=== PATIENT | female | born 1950 | race Caucasian/White ===

== ENCOUNTER 2019-03-16 06:00 | Inpatient (IN) ==
[2019-03-16] MEDS ORDERED: GLUCAGON 1 MG VIAL IM PRN ×2 (06:31)
[2019-03-16] MEDS ORDERED: DEXTROSE 50% 25 GM/50 ML VIAL IV PRN ×2 (06:31)
[2019-03-16] MEDS: CHLORHEXIDINE 4% SOLN 118 ML BOTTLE TOP SCH ×3 (09:00→21:19)
[2019-03-16] MEDS ORDERED: ZALEPLON 5 MG CAPSULE PO PRN (09:30)
[2019-03-16 10:31] LABS: Basophils % 0.3 % (0.0-0.8); Eosinophils # 0.1 10*3/uL (0.0-0.87); Eosinophils % 1.4 % (0.00-10.9); Hematocrit 35.8 VOL% (35.7-47.0); Hemoglobin 10.5 GM/DL (12.0-16.0); Immature Granulocytes % 0.3 %; Immature Granulocytes Absolute 0.02 #; Lymphocytes # 1.9 10*3/uL (1.4-4.0); Lymphocytes % 29.3 % (21.3-54.2); Mean Corpuscular HGB Conc 29.3 GM/DL (32-36); Mean Corpuscular Volume 81.2 FL (87-102); Mean Platelet Volume 9.5 FL (9.6-12.0); Monocytes % 7.9 % (1.7-12.7); Neutrophils % 60.8 % (38.7-73.9); Platelet Count 250 T/CUMM (130-400); Red Blood Count 4.41 MC/CUMM (3.8-5.5); Red Cell Distribution Width 18.5 % (9.3-17.3); White Blood Count 6.5 T/CUMM (4-12)
[2019-03-16 10:33] LABS: Alanine Aminotransferase 16 U/L (13-56); Albumin 3.4 G/DL (3.4-5.0); Alkaline Phosphatase 134 U/L (45-117); Aspartate Amino Transferase 16 U/L (0-37); Bilirubin,Total < 0.39 MG/DL (0.2-1.0); Blood Urea Nitrogen 11 MG/DL (7-18); Calcium 9.1 MG/DL (8.5-10.1); Estimated Glom Filtration Rate 66 ML/MIN; Glucose 128 MG/DL (74-106); Osmolality,Calculated 279.4 MOS/KG (273-304); Total Protein 7.5 G/DL (6.4-8.3)
[2019-03-16] MEDS: VENLAFAXINE XR 37.5 MG CAPSULE PO SCH (12:22)
[2019-03-16] MEDS: LOSARTAN 50 MG TABLET PO SCH (12:22)
[2019-03-16] MEDS: amLODIPine 5 MG TABLET PO SCH (12:22)
[2019-03-16] MEDS: ASPIRIN CHEW 81 MG TABLET PO SCH (12:22)
[2019-03-16] MEDS: PROPRANOLOL 40 MG TABLET PO SCH ×2 (12:22→21:18)
[2019-03-16] MEDS: GABAPENTIN 300 MG CAPSULE PO SCH (12:22)
[2019-03-16] MEDS: CHLORHEXIDINE 0.12% ORAL RINSE 60 ML BOTTLE SWISH/SPIT SCH ×2 (12:24→21:18)
[2019-03-16] MEDS: SODIUM CHLORIDE 0.9% 1,000 ML IV SCH (12:24)
[2019-03-17] MEDS ORDERED: ONDANSETRON 4 MG/2 ML VIAL IV ONE (03:28)
[2019-03-17] MEDS ORDERED: VANCOMYCIN 500 MG VIAL ONE (04:25)
[2019-03-17] MEDS ORDERED: PAPAVERINE 60 MG/2 ML VIAL ONE (04:25)
[2019-03-17] MEDS ORDERED: VANCOMYCIN 1,000 MG VIAL ONE (04:25)
[2019-03-17] MEDS ORDERED: FAMOTIDINE 20 MG TABLET PO ONE (06:00)
[2019-03-17] MEDS ORDERED: DIAZEPAM 5 MG TABLET PO ONE (06:00)
[2019-03-17] MEDS ORDERED: SUFentanil 250 MCG/5 ML AMP ONE (06:00)
[2019-03-17] MEDS ORDERED: MIDAZOLAM 10 MG/2 ML VIAL ONE (06:01)
[2019-03-17] MEDS ORDERED: LEVOTHYROXINE 100 MCG TABLET PO SCH (06:30)
[2019-03-17] MEDS ORDERED: CEFUROXIME 1,500 MG VIAL ONE (06:45)
[2019-03-17] MEDS ORDERED: CEFUROXIME INJ 1,500 MG in SYRINGE 1 EACH IV ONE (07:00)
[2019-03-17] MEDS: SODIUM CHLORIDE 0.9% 1,000 ML IV SCH (07:00)
[2019-03-17 07:36] LABS: ABG Base Excess 1.4 MMOL/L (-2.5-2.5); ABG HCO3 25.7 MMOL/L (20-26); ABG PCO2 40.4 MM HG (35-48); ABG PH 7.416 (7.35-7.45); Glucose Heart Surgery 102 MG/DL (74-106); Hematocrit Heart Surgery 27.6 PERCENT (37-47); Hemoglobin Heart Surgery 8.9 G/DL (12.0-16.0); Ionized Calcium Arterial 1.08 MMOL/L (1.21-1.46); PCO2 Patient Temp Arterial 40.4 MMHG; PH Patient Temp Arterial 7.416; Patient Temperature 37 CELCIUS; Potassium Heart/CVR 3.8 MMOL/L (3.5-5.1); Sodium Heart/CVR 136 MMOL/L (135-145)
[2019-03-17 08:23] LABS: Apearance,Urine CLEAR (Clear); Bacteria,Urine Occasional /HPF (Few); Bilirubin,Urine Negative (Negative); Blood, Urine Negative (Negative); Glucose,Urine (UA) Negative (Negative); Ketones,Urine Negative (Negative); Mucus,Urine Occasional /LPF (Occasional); Nitrite,Urine Positive (Negative); Protein,Urine Negative; RBC,Urine <1 /HPF (0-4); Squamous Epithelial Cell,Urine Occasional /HPF (0-10); Urine Color Yellow (Yellow); Urine Specific Gravity 1.014 (1.001-1.035); Urine Urobilinogen < 2.0 EU/DL (0.2-1.0); WBC,Urine 4 /HPF (0-6)
[2019-03-17 08:41] LABS: Hemoglobin Heart Surgery 6.9 G/DL (12.0-16.0); PCO2 Patient Temp Venous 29.7 MM HG; PH Patient Temp Venous 7.551; PO2 Patient Temp Venous 38.5 MM HG; Potassium Heart/CVR 4.4 MMOL/L (3.5-5.1); VBG Base Excess 2.9 MEQ/L (0-4); VBG HCO3 25.9 MEQ/L (24-28); VBG Oxygen Saturation 81.6 %; VBG PCO2 32.4 MMHG (41-51); VBG PH 7.52; VBG PO2 44.3 MMHG (17-40)
[2019-03-17] MEDS: CHLORHEXIDINE 0.12% ORAL RINSE 60 ML BOTTLE SWISH/SPIT SCH ×2 (09:00→20:45)
[2019-03-17] MEDS: GABAPENTIN 300 MG CAPSULE PO SCH (09:00)
[2019-03-17] MEDS: amLODIPine 5 MG TABLET PO SCH (09:00)
[2019-03-17] MEDS: PROPRANOLOL 40 MG TABLET PO SCH (09:00)
[2019-03-17] MEDS: LOSARTAN 50 MG TABLET PO SCH (09:00)
[2019-03-17] MEDS: ASPIRIN CHEW 81 MG TABLET PO SCH (09:00)
[2019-03-17] MEDS: VENLAFAXINE XR 37.5 MG CAPSULE PO SCH (09:00)
[2019-03-17 09:11] LABS: Hematocrit Heart Surgery 23.8 PERCENT (37-47); Hemoglobin Heart Surgery 7.6 G/DL (12.0-16.0); PCO2 Patient Temp Venous 34.1 MM HG; PH Patient Temp Venous 7.47; PO2 Patient Temp Venous 36.8 MM HG; VBG Base Excess 1.6 MEQ/L (0-4); VBG HCO3 25.6 MEQ/L (24-28); VBG Oxygen Saturation 82.9 %; VBG PCO2 39.5 MMHG (41-51); VBG PH 7.426; VBG PO2 45.2 MMHG (17-40)
[2019-03-17] MEDS ORDERED: MANNITOL 100 GM/500 ML BAG IV ONE (09:58)
[2019-03-17] MEDS ORDERED: LIDOCAINE 2% 5 ML VIAL ONE ×2 (09:58→11:04)
[2019-03-17] MEDS ORDERED: FUROSEMIDE 20 MG/2 ML VIAL ONE (09:59)
[2019-03-17] MEDS ORDERED: DEXTROSE 5% KCL 20 MEQ 20 MEQ/1,000 ML BAG IV ONE (09:59)
[2019-03-17] MEDS ORDERED: ALBUMIN 25% 25 GM/100 ML VIAL IV ONE (09:59)
[2019-03-17] MEDS ORDERED: MAGNESIUM SULFATE 5 GM/10 ML VIAL IV ONE (09:59)
[2019-03-17] MEDS ORDERED: methylPREDNISolone SOD SUC 1,000 MG/8 ML VIAL ONE (09:59)
[2019-03-17] MEDS ORDERED: PROTAMINE SULFATE 250 MG/25 ML VIAL IV ONE (09:59)
[2019-03-17] MEDS ORDERED: HEPARIN 10,000 UNIT/10 ML VIAL ONE (09:59)
[2019-03-17] MEDS ORDERED: SODIUM BICARBONATE 50 MEQ/50 ML VIAL IV ONE ×2 (09:59→10:27)
[2019-03-17] MEDS ORDERED: PROTAMINE SULFATE 50 MG/5 ML VIAL IV ONE (10:00)
[2019-03-17 10:04] LABS: ABG Base Excess -0.4 MMOL/L (-2.5-2.5); ABG HCO3 23.4 MMOL/L (20-26); ABG PCO2 34.5 MM HG (35-48); ABG PH 7.449 (7.35-7.45); ABG PO2 452.6 MM HG (80-95); ABG TCO2 24.4 MMOL/L (23-27); Glucose Heart Surgery 229 MG/DL (74-106); PCO2 Patient Temp Arterial 34.5 MMHG; PH Patient Temp Arterial 7.449; PO2 Patient Temp Arterial 452.6 MM HG; Patient Temperature 37 CELCIUS; Potassium Heart/CVR 4.1 MMOL/L (3.5-5.1); Sodium Heart/CVR 133 MMOL/L (135-145)
[2019-03-17] MEDS ORDERED: CALCIUM CHLORIDE 1,000 MG/10 ML SYRINGE IV ONE (10:27)
[2019-03-17] MEDS ORDERED: NITROPRUSSIDE 50 MG/2 ML VIAL ONE (10:28)
[2019-03-17] MEDS ORDERED: PHENYLEPHRINE DRIP 40 MG/250 ML PREMIX IV ONE (10:28)
[2019-03-17] MEDS ORDERED: POTASSIUM CHLORIDE RIDER 100 ML IV ONE ×2 (10:29→11:30)
[2019-03-17] MEDS ORDERED: INSULIN REGULAR DRIP 100 ML IV SCH (11:04)
[2019-03-17] MEDS ORDERED: SEVOFLURANE 1 UNIT/15 MINUTE INH ONE (11:04)
[2019-03-17] MEDS ORDERED: CALCIUM CHLORIDE 1,000 MG/10 ML SYRINGE IV PRN (11:04)
[2019-03-17] MEDS ORDERED: HEPARIN/NACL 0.9% 2 UNITS/ML 500 ML IV ONE (11:04)
[2019-03-17] MEDS ORDERED: MAGNESIUM SULF RIDER 4 GM in PREMIX 1 EACH IV PRN (11:04)
[2019-03-17] MEDS ORDERED: VECURONIUM 10 MG VIAL IV PRN ×2 (11:04)
[2019-03-17] MEDS ORDERED: PHENYLEPHRINE DRIP 20 MG/250 ML PREMIX IV ONE (11:04)
[2019-03-17] MEDS ORDERED: NITROPRUSSIDE 100 MG in DEXTROSE 5% 250 ML IV PRN (11:04)
[2019-03-17] MEDS ORDERED: ACETAMINOPHEN 650 MG SUPP RECTAL PRN (11:04)
[2019-03-17] MEDS ORDERED: PHENYLEPHRINE DRIP 40 MG/250 ML PREMIX IV PRN (11:04)
[2019-03-17] MEDS ORDERED: MORPHINE 4 MG/1 ML VIAL IV PRN (11:04)
[2019-03-17] MEDS ORDERED: ePHEDrine 50 MG/ML AMP ONE (11:04)
[2019-03-17] MEDS ORDERED: MORPHINE 10 MG/1 ML VIAL IV PRN (11:04)
[2019-03-17] MEDS ORDERED: SODIUM CHLORIDE 0.45% 1,000 ML IV SCH ×2 (11:04)
[2019-03-17] MEDS ORDERED: POTASSIUM CHLORIDE RIDER 10 MEQ in PREMIX 1 EACH IV PRN (11:04)
[2019-03-17] MEDS ORDERED: MIDAZOLAM 2 MG/2 ML VIAL IV PRN (11:04)
[2019-03-17] MEDS ORDERED: MAGNESIUM SULF RIDER 2 GM in PREMIX 1 EACH IV PRN (11:04)
[2019-03-17] MEDS ORDERED: MIDAZOLAM 10 MG/2 ML VIAL IV PRN (11:04)
[2019-03-17] MEDS ORDERED: MINERAL OIL/PETROLATUM OPH OINT 3.5 GM TUBE ONE (11:04)
[2019-03-17] MEDS ORDERED: CALCIUM CHLORIDE 1,000 MG/10 ML VIAL IV ONE (11:04)
[2019-03-17] MEDS ORDERED: DEXTROSE 10% 250 ML BAG IV PRN ×2 (11:04)
[2019-03-17] MEDS ORDERED: INSULIN REGULAR 100 UNIT/ML IV ONE (11:04)
[2019-03-17] MEDS ORDERED: ETOMIDATE 40 MG/20 ML VIAL IV ONE (11:05)
[2019-03-17] MEDS ORDERED: ONDANSETRON 4 MG/2 ML VIAL ONE (11:05)
[2019-03-17] MEDS ORDERED: ESMOLOL 100 MG/10 ML VIAL IV ONE (11:05)
[2019-03-17] MEDS ORDERED: ROCURONIUM 100 MG/10 ML VIAL IV ONE (11:05)
[2019-03-17] MEDS ORDERED: AMINOCAPROIC ACID 5,000 MG/20 ML VIAL ONE (11:05)
[2019-03-17] MEDS ORDERED: NITROGLYCERIN DRIP 50 MG/250 ML BOTTLE IV ONE (11:05)
[2019-03-17] MEDS ORDERED: DEXAMETHASONE 4 MG/1 ML VIAL ONE (11:05)
[2019-03-17] MEDS ORDERED: SODIUM CHLORIDE 0.9% 100 ML IV ONE (11:06)
[2019-03-17] MEDS ORDERED: SODIUM CHLORIDE 0.9% 250 ML IV ONE (11:06)
[2019-03-17 11:17] LABS: ABG Base Excess -0.7 MMOL/L (-2.5-2.5); ABG HCO3 23.8 MMOL/L (20-26); ABG Oxygen Saturation 99.7 % (95-100); ABG PCO2 38.3 MM HG (35-48); ABG PH 7.401 (7.35-7.45); ABG TCO2 21.8 MMOL/L (23-27); Glucose Heart Surgery 196 MG/DL (74-106); Hemoglobin Heart Surgery 9.4 G/DL (12.0-16.0); Potassium Heart/CVR 3.4 MMOL/L (3.5-5.1)
[2019-03-17 11:20] LABS: Basophils % 0.2 % (0.0-0.8); Eosinophils % 0.4 % (0.00-10.9); Hematocrit 30.6 VOL% (35.7-47.0); Hemoglobin 9.2 GM/DL (12.0-16.0); Immature Granulocytes % 1.1 %; Immature Granulocytes Absolute 0.11 #; Lymphocytes # 0.7 10*3/uL (1.4-4.0); Lymphocytes % 7.1 % (21.3-54.2); Mean Corpuscular HGB Conc 30.1 GM/DL (32-36); Mean Platelet Volume 9.7 FL (9.6-12.0); Monocytes % 3.4 % (1.7-12.7); Neutrophils % 87.8 % (38.7-73.9); Platelet Count 184 T/CUMM (130-400); Red Blood Count 3.78 MC/CUMM (3.8-5.5); Red Cell Distribution Width 17.9 % (9.3-17.3); White Blood Count 10.1 T/CUMM (4-12)
[2019-03-17] MEDS: NITROGLYCERIN DRIP 50 MG/250 ML BOTTLE IV PRN (11:20)
[2019-03-17] MEDS: POTASSIUM CHLORIDE RIDER 20 MEQ in PREMIX 1 EACH IV PRN ×3 (11:25→13:18)
[2019-03-17 11:30] LABS: PT Patient Result 11.2 SECS (9.6-12.2); Partial Thromboplastin Time 26.5 SECS (20.8-36.0)
[2019-03-17 11:53] LABS: Albumin 2.9 G/DL (3.4-5.0); Bilirubin,Total 1.4 MG/DL (0.2-1.0); Calcium 8.5 MG/DL (8.5-10.1); Osmolality,Calculated 283.4 MOS/KG (273-304); Total Protein 5.6 G/DL (6.4-8.3)
[2019-03-17] MEDS: LACTATED RINGERS 250 ML IV PRN ×4 (12:05→17:35)
[2019-03-17] MEDS: KETOROLAC 30 MG/1 ML VIAL IV SCH ×3 (12:30→23:14)
[2019-03-17 13:06] LABS: ABG Base Excess -0.6 MMOL/L (-2.5-2.5); ABG HCO3 23.9 MMOL/L (20-26); ABG Oxygen Saturation 98.6 % (95-100); ABG PCO2 40.7 MM HG (35-48); ABG PH 7.384 (7.35-7.45); ABG TCO2 22.2 MMOL/L (23-27); Glucose Heart Surgery 166 MG/DL (74-106); Hematocrit Heart Surgery 30.1 PERCENT (37-47); Hemoglobin Heart Surgery 9.7 G/DL (12.0-16.0); Potassium Heart/CVR 4.3 MMOL/L (3.5-5.1)
[2019-03-17 13:55] LABS: CKMB % 6.5 %
[2019-03-17 13:59] LABS: Troponin I 2.98 NG/ML (0.00-0.045)
[2019-03-17] MEDS: ALBUMIN 5% 12.5 GM in PREMIX 1 EACH IV PRN ×2 (14:50→15:05)
[2019-03-17 16:30] LABS: ABG Base Excess -0.5 MMOL/L (-2.5-2.5); ABG PCO2 43.3 MM HG (35-48); ABG PH 7.367 (7.35-7.45); Glucose Heart Surgery 155 MG/DL (74-106); Hematocrit Heart Surgery 26.9 PERCENT (37-47); Hemoglobin Heart Surgery 8.7 G/DL (12.0-16.0); Potassium Heart/CVR 4.5 MMOL/L (3.5-5.1)
[2019-03-17] MEDS: INSULIN REGULAR 100 UNIT/ML IV PRN (18:05)
[2019-03-17] MEDS: CEFUROXIME INJ 1,500 MG in SYRINGE 1 EACH IV SCH (18:25)
[2019-03-17] MEDS: CEFUROXIME INJ 1,500 MG in SYRINGE 1 EACH IV ONE ×2 (18:30→19:33)
[2019-03-17] MEDS ORDERED: FUROSEMIDE 40 MG/4 ML VIAL IV PRN (19:02)
[2019-03-17 19:10] LABS: ABG HCO3 23.6 MMOL/L (20-26); ABG PCO2 43.4 MM HG (35-48); ABG PH 7.359 (7.35-7.45); ABG TCO2 22.4 MMOL/L (23-27)
[2019-03-17 19:11] LABS: ABG Oxygen Saturation 98.7 % (95-100); Glucose Heart Surgery 153 MG/DL (74-106); Hematocrit Heart Surgery 29.8 PERCENT (37-47); Hemoglobin Heart Surgery 9.6 G/DL (12.0-16.0); Potassium Heart/CVR 4.2 MMOL/L (3.5-5.1)
[2019-03-17 19:46] LABS: CKMB % 6.7 %
[2019-03-17 19:48] LABS: Troponin I 5.72 NG/ML (0.00-0.045)
[2019-03-17] MEDS ORDERED: PROPRANOLOL 40 MG TABLET PO ONE (19:53)
[2019-03-18] MEDS: NITROGLYCERIN DRIP 50 MG/250 ML BOTTLE IV PRN (02:50)
[2019-03-18 03:37] LABS: ABG Base Excess 0.9 MMOL/L (-2.5-2.5); ABG HCO3 25.2 MMOL/L (20-26); ABG Oxygen Saturation 97.9 % (95-100); ABG PH 7.369 (7.35-7.45); Glucose Heart Surgery 136 MG/DL (74-106); Hematocrit Heart Surgery 32.9 PERCENT (37-47); Hemoglobin Heart Surgery 10.7 G/DL (12.0-16.0); Potassium Heart/CVR 4.2 MMOL/L (3.5-5.1)
[2019-03-18 03:38] LABS: Basophils % 0.1 % (0.0-0.8); Hematocrit 33.3 VOL% (35.7-47.0); Hemoglobin 10.4 GM/DL (12.0-16.0); Immature Granulocytes % 0.6 %; Lymphocytes # 0.8 10*3/uL (1.4-4.0); Lymphocytes % 4.9 % (21.3-54.2); Mean Corpuscular HGB Conc 31.2 GM/DL (32-36); Mean Corpuscular Volume 81.4 FL (87-102); Mean Platelet Volume 9.9 FL (9.6-12.0); Monocytes % 4.8 % (1.7-12.7); Neutrophils % 89.6 % (38.7-73.9); Platelet Count 199 T/CUMM (130-400); Red Blood Count 4.09 MC/CUMM (3.8-5.5); Red Cell Distribution Width 17.6 % (9.3-17.3); White Blood Count 16.2 T/CUMM (4-12)
[2019-03-18 04:00] LABS: Albumin 3.4 G/DL (3.4-5.0); Bilirubin,Direct 0.21 MG/DL (0.0-0.20); Bilirubin,Total 0.6 MG/DL (0.2-1.0); Calcium 8.3 MG/DL (8.5-10.1); Total Protein 5.9 G/DL (6.4-8.3)
[2019-03-18 04:02] LABS: CKMB % 7.9 %
[2019-03-18 04:04] LABS: Band Neutrophils 1 % (0-10); Hypochromasia 1+; Lymphocytes 5 % (20-55); Ovalocytes Slight; Platelet Estimate Adequate; Segmented Neutrophils 91 % (50-85); Total Cells Counted 100
[2019-03-18] MEDS: ONDANSETRON 4 MG/2 ML VIAL IV PRN ×2 (04:06→10:27)
[2019-03-18 04:08] LABS: Troponin I 10.8 NG/ML (0.00-0.045)
[2019-03-18 04:59] LABS: ABG Base Excess 0.2 MMOL/L (-2.5-2.5); ABG HCO3 24.6 MMOL/L (20-26); ABG PCO2 43.9 MM HG (35-48); ABG PH 7.374 (7.35-7.45); ABG PO2 90.1 MM HG (80-95); ABG TCO2 23.2 MMOL/L (23-27); Glucose Heart Surgery 151 MG/DL (74-106); Hematocrit Heart Surgery 32.6 PERCENT (37-47); Hemoglobin Heart Surgery 10.5 G/DL (12.0-16.0)
[2019-03-18] MEDS: KETOROLAC 30 MG/1 ML VIAL IV SCH ×3 (05:01→16:41)
[2019-03-18] MEDS: POTASSIUM CHLORIDE RIDER 20 MEQ in PREMIX 1 EACH IV PRN ×2 (05:04→07:57)
[2019-03-18] MEDS ORDERED: FUROSEMIDE 40 MG/4 ML VIAL IV ONE (05:56)
[2019-03-18] MEDS: CEFUROXIME INJ 1,500 MG in SYRINGE 1 EACH IV SCH (06:30)
[2019-03-18 06:38] LABS: ABG Base Excess 0.6 MMOL/L (-2.5-2.5); ABG HCO3 24.9 MMOL/L (20-26); ABG Oxygen Saturation 96.4 % (95-100); ABG PCO2 44.6 MM HG (35-48); ABG PH 7.374 (7.35-7.45); ABG PO2 84.9 MM HG (80-95); ABG TCO2 23.5 MMOL/L (23-27); Glucose Heart Surgery 164 MG/DL (74-106); Hematocrit Heart Surgery 33.2 PERCENT (37-47); Hemoglobin Heart Surgery 10.8 G/DL (12.0-16.0); Potassium Heart/CVR 4.5 MMOL/L (3.5-5.1)
[2019-03-18] MEDS: INSULIN REGULAR 100 UNIT/ML IV PRN (07:01)
[2019-03-18 07:51] LABS: ABG Base Excess 0.9 MMOL/L (-2.5-2.5); ABG HCO3 25.9 MMOL/L (20-26); ABG Oxygen Saturation 95.3 % (95-100); ABG PCO2 42.8 MM HG (35-48); ABG PH 7.399 (7.35-7.45); ABG PO2 81.1 MM HG (80-95); ABG TCO2 27.2 MMOL/L (23-27); Glucose Heart Surgery 154 MG/DL (74-106); Hemoglobin Heart Surgery 11.5 G/DL (12.0-16.0); Potassium Heart/CVR 4.1 MMOL/L (3.5-5.1)
[2019-03-18] MEDS ORDERED: PROPRANOLOL 40 MG TABLET PO SCH (09:00)
[2019-03-18] MEDS: CHLORHEXIDINE 0.12% ORAL RINSE 60 ML BOTTLE SWISH/SPIT SCH ×2 (09:30→21:27)
[2019-03-18 09:36] LABS: ABG HCO3 26.2 MMOL/L (20-26); ABG Oxygen Saturation 97.5 % (95-100); ABG PCO2 44.8 MM HG (35-48); ABG PH 7.393 (7.35-7.45); ABG PO2 94.5 MM HG (80-95); ABG TCO2 24.6 MMOL/L (23-27); Glucose Heart Surgery 139 MG/DL (74-106); Hematocrit Heart Surgery 33.3 PERCENT (37-47); Hemoglobin Heart Surgery 10.8 G/DL (12.0-16.0); Potassium Heart/CVR 4.5 MMOL/L (3.5-5.1)
[2019-03-18] MEDS ORDERED: MAGNESIUM SULF RIDER 4 GM in PREMIX 1 EACH IV PRN (10:03)
[2019-03-18] MEDS ORDERED: SODIUM CHLOR 0.45% KCL 20 MEQ 20 MEQ/1,000 ML BAG IV SCH (10:03)
[2019-03-18] MEDS ORDERED: ALUMINUM/MAGNES/SIMETH MAX STR 30 ML UDCUP PO PRN (10:03)
[2019-03-18] MEDS ORDERED: DEXTROSE 10% 250 ML BAG IV PRN ×2 (10:03)
[2019-03-18] MEDS ORDERED: ACETAMINOPHEN 325 MG TABLET PO PRN (10:03)
[2019-03-18] MEDS ORDERED: cloNIDine 0.1 MG TABLET PO PRN (10:03)
[2019-03-18] MEDS ORDERED: ONDANSETRON 4 MG TABLET PO PRN (10:03)
[2019-03-18] MEDS ORDERED: MAGNESIUM SULF RIDER 2 GM in PREMIX 1 EACH IV PRN (10:03)
[2019-03-18] MEDS ORDERED: GLUCAGON 1 MG VIAL IM PRN ×2 (10:03)
[2019-03-18] MEDS ORDERED: ZALEPLON 5 MG CAPSULE PO PRN (10:03)
[2019-03-18] MEDS: CILOSTAZOL 50 MG TABLET PO SCH ×2 (11:25→21:13)
[2019-03-18] MEDS: amLODIPine 5 MG TABLET PO SCH (11:25)
[2019-03-18] MEDS: ASPIRIN EC 81 MG TABLET PO SCH (11:25)
[2019-03-18] MEDS: LOSARTAN 50 MG TABLET PO SCH (11:25)
[2019-03-18] MEDS: PANTOPRAZOLE 40 MG TABLET PO SCH (11:25)
[2019-03-18] MEDS ORDERED: INSULIN REGULAR 100 UNIT/ML SUBCUT SCH (12:00)
[2019-03-18] MEDS: GABAPENTIN 300 MG CAPSULE PO SCH ×2 (15:53→21:14)
[2019-03-18] MEDS ORDERED: CILOSTAZOL 50 MG TABLET PO SCH (21:00)
[2019-03-18] MEDS: SULFAMETHOX/TRIMETHOPRIM 800-160 MG TABLET PO SCH (21:13)
[2019-03-18] MEDS: LYSINE HCL 500 MG PO SCH (21:14)
[2019-03-18] MEDS: oxyCODONE/ACETAMINOPHEN 5-325 MG TABLET PO PRN (21:19)
[2019-03-18] MEDS: PROPRANOLOL 40 MG TABLET PO SCH (21:20)
[2019-03-19] MEDS: oxyCODONE/ACETAMINOPHEN 5-325 MG TABLET PO PRN (00:47)
[2019-03-19] MEDS ORDERED: AMIODARONE INJ 150 MG in DEXTROSE 5% 100 ML IV ONE (01:51)
[2019-03-19] MEDS ORDERED: AMIODARONE INJ 450 MG in DEXTROSE 5% 241 ML IV SCH ×2 (02:00→20:00)
[2019-03-19] MEDS: ONDANSETRON 4 MG/2 ML VIAL IV PRN ×2 (05:46→09:28)
[2019-03-19] MEDS ORDERED: FUROSEMIDE 40 MG/4 ML VIAL IV ONE (06:00)
[2019-03-19 06:26] LABS: Albumin 3.1 G/DL (3.4-5.0); Bilirubin,Direct 0.14 MG/DL (0.0-0.20); Bilirubin,Indirect 0.4 MG/DL (0.0-1.0); Bilirubin,Total 0.5 MG/DL (0.2-1.0); CKMB % 4.1 %; Calcium 8.5 MG/DL (8.5-10.1); Osmolality,Calculated 277.8 MOS/KG (273-304)
[2019-03-19 06:28] LABS: Troponin I 4.68 NG/ML (0.00-0.045)
[2019-03-19] MEDS: LEVOTHYROXINE 100 MCG TABLET PO SCH (06:30)
[2019-03-19 06:42] LABS: Basophils % 0.1 % (0.0-0.8); Hematocrit 29.2 VOL% (35.7-47.0); Hemoglobin 8.8 GM/DL (12.0-16.0); Immature Granulocytes % 0.5 %; Immature Granulocytes Absolute 0.06 #; Lymphocytes # 2.4 10*3/uL (1.4-4.0); Lymphocytes % 20.7 % (21.3-54.2); Mean Corpuscular HGB Conc 30.1 GM/DL (32-36); Mean Corpuscular Volume 84.6 FL (87-102); Mean Platelet Volume 9.8 FL (9.6-12.0); Monocytes % 7.5 % (1.7-12.7); Neutrophils % 71.2 % (38.7-73.9); Platelet Count 161 T/CUMM (130-400); Red Blood Count 3.45 MC/CUMM (3.8-5.5); Red Cell Distribution Width 18.6 % (9.3-17.3); White Blood Count 11.7 T/CUMM (4-12)
[2019-03-19] MEDS ORDERED: PANTOPRAZOLE 40 MG TABLET PO SCH ×2 (09:00)
[2019-03-19] MEDS ORDERED: amLODIPine 5 MG TABLET PO SCH (09:00)
[2019-03-19] MEDS ORDERED: VENLAFAXINE XR 37.5 MG CAPSULE PO SCH (09:00)
[2019-03-19] MEDS ORDERED: ASPIRIN EC 81 MG TABLET PO SCH (09:00)
[2019-03-19] MEDS ORDERED: LOSARTAN 50 MG TABLET PO SCH (09:00)
[2019-03-19] MEDS: VENLAFAXINE XR 37.5 MG CAPSULE PO SCH (09:54)
[2019-03-19] MEDS: COENZYME Q10 100 MG CAPSULE PO SCH (09:54)
[2019-03-19] MEDS: CILOSTAZOL 50 MG TABLET PO SCH ×2 (09:55→21:06)
[2019-03-19] MEDS: SULFAMETHOX/TRIMETHOPRIM 800-160 MG TABLET PO SCH (09:55)
[2019-03-19] MEDS: LOSARTAN 50 MG TABLET PO SCH (09:55)
[2019-03-19] MEDS: PROPRANOLOL 40 MG TABLET PO SCH ×2 (09:55→21:06)
[2019-03-19] MEDS: GABAPENTIN 300 MG CAPSULE PO SCH ×3 (09:56→21:06)
[2019-03-19] MEDS: ASPIRIN EC 81 MG TABLET PO SCH (09:56)
[2019-03-19] MEDS: amLODIPine 5 MG TABLET PO SCH (09:56)
[2019-03-19] MEDS: DOCUSATE SODIUM 100 MG CAPSULE PO SCH (09:56)
[2019-03-19] MEDS: FERROUS SULFATE 325 MG TABLET PO SCH (09:56)
[2019-03-19] MEDS: CHLORHEXIDINE 0.12% ORAL RINSE 60 ML BOTTLE SWISH/SPIT SCH ×2 (09:57→21:06)
[2019-03-19] MEDS: PANTOPRAZOLE 40 MG TABLET PO SCH (09:57)
[2019-03-19] MEDS ORDERED: AMIODARONE INJ 50 MG in DEXTROSE 5% 100 ML IV ONE (19:58)
[2019-03-19] MEDS ORDERED: DILTIAZEM 50 MG/10 ML VIAL IV ONE (20:10)
[2019-03-19] MEDS: dilTIAZem Drip 125 MG/125 ML PREMIX IV SCH (20:37)
[2019-03-19] MEDS: LYSINE HCL 500 MG PO SCH (21:06)
[2019-03-20] MEDS: oxyCODONE/ACETAMINOPHEN 5-325 MG TABLET PO PRN ×3 (00:47→20:36)
[2019-03-20] MEDS: dilTIAZem Drip 125 MG/125 ML PREMIX IV SCH (03:01)
[2019-03-20 06:27] LABS: Basophils % 0.1 % (0.0-0.8); Hematocrit 34.5 VOL% (35.7-47.0); Hemoglobin 10.4 GM/DL (12.0-16.0); Immature Granulocytes % 0.6 %; Immature Granulocytes Absolute 0.07 #; Lymphocytes # 2.2 10*3/uL (1.4-4.0); Lymphocytes % 18.5 % (21.3-54.2); Mean Corpuscular HGB Conc 30.1 GM/DL (32-36); Mean Corpuscular Volume 83.9 FL (87-102); Mean Platelet Volume 9.8 FL (9.6-12.0); Monocytes % 8.9 % (1.7-12.7); Neutrophils % 71.9 % (38.7-73.9); Platelet Count 213 T/CUMM (130-400); Red Blood Count 4.11 MC/CUMM (3.8-5.5); Red Cell Distribution Width 18.3 % (9.3-17.3); White Blood Count 11.8 T/CUMM (4-12)
[2019-03-20 06:38] LABS: Alanine Aminotransferase 23 U/L (13-56); Alkaline Phosphatase 88 U/L (45-117); Aspartate Amino Transferase 32 U/L (0-37); Blood Urea Nitrogen 21 MG/DL (7-18); Calcium 8.6 MG/DL (8.5-10.1); Estimated Glom Filtration Rate 76 ML/MIN; Glucose 114 MG/DL (74-106); Osmolality,Calculated 271.2 MOS/KG (273-304); Total Protein 6.4 G/DL (6.4-8.3)
[2019-03-20] MEDS: POTASSIUM CHLORIDE 20 MEQ TABLET PO PRN ×2 (07:13→09:11)
[2019-03-20] MEDS: LEVOTHYROXINE 100 MCG TABLET PO SCH (07:13)
[2019-03-20] MEDS: CILOSTAZOL 50 MG TABLET PO SCH ×2 (09:09→20:37)
[2019-03-20] MEDS: CHLORHEXIDINE 0.12% ORAL RINSE 60 ML BOTTLE SWISH/SPIT SCH ×2 (09:09→20:39)
[2019-03-20] MEDS: GABAPENTIN 300 MG CAPSULE PO SCH ×3 (09:10→20:36)
[2019-03-20] MEDS: amLODIPine 5 MG TABLET PO SCH (09:10)
[2019-03-20] MEDS: FERROUS SULFATE 325 MG TABLET PO SCH (09:10)
[2019-03-20] MEDS: PROPRANOLOL 40 MG TABLET PO SCH ×2 (09:10→20:37)
[2019-03-20] MEDS: LEVOFLOXACIN 500 MG TABLET PO SCH (09:10)
[2019-03-20] MEDS: COENZYME Q10 100 MG CAPSULE PO SCH (09:10)
[2019-03-20] MEDS: LOSARTAN 50 MG TABLET PO SCH (09:11)
[2019-03-20] MEDS: ASPIRIN EC 81 MG TABLET PO SCH (09:11)
[2019-03-20] MEDS: DOCUSATE SODIUM 100 MG CAPSULE PO SCH (09:11)
[2019-03-20] MEDS: PANTOPRAZOLE 40 MG TABLET PO SCH (09:12)
[2019-03-20] MEDS: VENLAFAXINE XR 37.5 MG CAPSULE PO SCH (09:27)
[2019-03-20] MEDS: AMIODARONE 200 MG TABLET PO SCH ×2 (09:27→20:37)
[2019-03-20] MEDS: CLOPIDOGREL 75 MG TABLET PO SCH (09:27)
[2019-03-20] MEDS: MAGNESIUM HYDROXIDE SUSP 30 ML UDCUP PO PRN (09:31)
[2019-03-20] MEDS: LYSINE HCL 500 MG PO SCH (20:37)
[2019-03-21] MEDS: oxyCODONE/ACETAMINOPHEN 5-325 MG TABLET PO PRN ×3 (03:19→17:46)
[2019-03-21] MEDS: LEVOTHYROXINE 100 MCG TABLET PO SCH (06:36)
[2019-03-21] MEDS: ASPIRIN EC 81 MG TABLET PO SCH (09:16)
[2019-03-21] MEDS: CILOSTAZOL 50 MG TABLET PO SCH ×2 (09:16→21:06)
[2019-03-21] MEDS: PANTOPRAZOLE 40 MG TABLET PO SCH (09:16)
[2019-03-21] MEDS: GABAPENTIN 300 MG CAPSULE PO SCH ×3 (09:16→21:06)
[2019-03-21] MEDS: CLOPIDOGREL 75 MG TABLET PO SCH (09:16)
[2019-03-21] MEDS: COENZYME Q10 100 MG CAPSULE PO SCH (09:16)
[2019-03-21] MEDS: AMIODARONE 200 MG TABLET PO SCH ×2 (09:16→21:06)
[2019-03-21] MEDS: PROPRANOLOL 40 MG TABLET PO SCH ×2 (09:16→21:06)
[2019-03-21] MEDS: FERROUS SULFATE 325 MG TABLET PO SCH (09:16)
[2019-03-21] MEDS: LEVOFLOXACIN 500 MG TABLET PO SCH (09:16)
[2019-03-21] MEDS: VENLAFAXINE XR 37.5 MG CAPSULE PO SCH (09:16)
[2019-03-21] MEDS: MAGNESIUM HYDROXIDE SUSP 30 ML UDCUP PO PRN (09:17)
[2019-03-21] MEDS: amLODIPine 5 MG TABLET PO SCH (09:17)
[2019-03-21] MEDS: DOCUSATE SODIUM 100 MG CAPSULE PO SCH (09:17)
[2019-03-21] MEDS: LOSARTAN 50 MG TABLET PO SCH (09:17)
[2019-03-21] MEDS: CHLORHEXIDINE 0.12% ORAL RINSE 60 ML BOTTLE SWISH/SPIT SCH ×2 (09:41→21:07)
[2019-03-21] MEDS: LYSINE HCL 500 MG PO SCH (21:07)
[2019-03-22] MEDS: oxyCODONE/ACETAMINOPHEN 5-325 MG TABLET PO PRN ×2 (01:20→06:19)
[2019-03-22 04:43] LABS: Basophils % 0.2 % (0.0-0.8); Eosinophils # 0.1 10*3/uL (0.0-0.87); Eosinophils % 1.4 % (0.00-10.9); Hematocrit 31.8 VOL% (35.7-47.0); Hemoglobin 9.4 GM/DL (12.0-16.0); Immature Granulocytes % 0.7 %; Immature Granulocytes Absolute 0.06 #; Lymphocytes # 1.8 10*3/uL (1.4-4.0); Lymphocytes % 21.6 % (21.3-54.2); Mean Corpuscular HGB Conc 29.6 GM/DL (32-36); Mean Corpuscular Volume 86.9 FL (87-102); Mean Platelet Volume 9.9 FL (9.6-12.0); Monocytes % 8.7 % (1.7-12.7); Neutrophils % 67.4 % (38.7-73.9); Platelet Count 204 T/CUMM (130-400); Red Blood Count 3.66 MC/CUMM (3.8-5.5); Red Cell Distribution Width 18.5 % (9.3-17.3); White Blood Count 8.4 T/CUMM (4-12)
[2019-03-22 05:07] LABS: Alanine Aminotransferase 21 U/L (13-56); Albumin 2.7 G/DL (3.4-5.0); Alkaline Phosphatase 107 U/L (45-117); Aspartate Amino Transferase 21 U/L (0-37); Bilirubin,Indirect 0.3 MG/DL (0.0-1.0); Bilirubin,Total < 0.39 MG/DL (0.2-1.0); Blood Urea Nitrogen 24 MG/DL (7-18); Calcium 8.6 MG/DL (8.5-10.1); Estimated Glom Filtration Rate 76 ML/MIN; Glucose 91 MG/DL (74-106); Osmolality,Calculated 278.7 MOS/KG (273-304); Total Protein 6.2 G/DL (6.4-8.3)
[2019-03-22] MEDS: LEVOTHYROXINE 100 MCG TABLET PO SCH (06:19)
[2019-03-22] MEDS: ASPIRIN EC 81 MG TABLET PO SCH (08:39)
[2019-03-22] MEDS: COENZYME Q10 100 MG CAPSULE PO SCH (08:39)
[2019-03-22] MEDS: DOCUSATE SODIUM 100 MG CAPSULE PO SCH (08:39)
[2019-03-22] MEDS: LOSARTAN 50 MG TABLET PO SCH (08:40)
[2019-03-22] MEDS: AMIODARONE 200 MG TABLET PO SCH (08:40)
[2019-03-22] MEDS: VENLAFAXINE XR 37.5 MG CAPSULE PO SCH (08:41)
[2019-03-22] MEDS: FERROUS SULFATE 325 MG TABLET PO SCH (08:41)
[2019-03-22] MEDS: PROPRANOLOL 40 MG TABLET PO SCH (08:42)
[2019-03-22] MEDS: LEVOFLOXACIN 500 MG TABLET PO SCH (08:42)
[2019-03-22] MEDS: GABAPENTIN 300 MG CAPSULE PO SCH ×2 (08:43→15:15)
[2019-03-22] MEDS: amLODIPine 5 MG TABLET PO SCH (08:43)
[2019-03-22] MEDS: CLOPIDOGREL 75 MG TABLET PO SCH (08:44)
[2019-03-22] MEDS: PANTOPRAZOLE 40 MG TABLET PO SCH (08:45)
[2019-03-22] MEDS: CILOSTAZOL 50 MG TABLET PO SCH (08:45)
[2019-03-22] MEDS: CHLORHEXIDINE 0.12% ORAL RINSE 60 ML BOTTLE SWISH/SPIT SCH (08:59)
[2019-03-22 11:52] VITALS: BP 114/56
== END 2019-03-22 15:15 | disposition home health service (06) | DRG 236 ==
LOC: N.TELEN 08:51 → N.CVR 03-17 10:26 → N.TELES 03-18 13:17

== ENCOUNTER 2019-07-01 00:13 | Inpatient (IN) ==
[2019-07-01] MEDS ORDERED: ONDANSETRON 4 MG/2 ML VIAL IV STA (00:34)
[2019-07-01] MEDS ORDERED: methylPREDNISolone SOD SUC 125 MG/2 ML VIAL IV STA (00:34)
[2019-07-01] MEDS ORDERED: VANCOMYCIN INJ 1,000 MG in SODIUM CHLORIDE 0.9% 250 ML IV STA (00:39)
[2019-07-01] MEDS ORDERED: FUROSEMIDE 40 MG/4 ML VIAL IV STA ×2 (00:39→00:47)
[2019-07-01 00:47] LABS: Basophils % 0.4 % (0.0-0.8); Eosinophils # 0.1 10*3/uL (0.0-0.87); Eosinophils % 1.1 % (0.00-10.9); Hematocrit 34.7 VOL% (35.7-47.0); Hemoglobin 10.3 GM/DL (12.0-16.0); Immature Granulocytes % 1.4 %; Immature Granulocytes Absolute 0.15 #; Lymphocytes # 4.7 10*3/uL (1.4-4.0); Lymphocytes % 43.7 % (21.3-54.2); Mean Corpuscular HGB Conc 29.7 GM/DL (32-36); Mean Corpuscular Volume 85.3 FL (87-102); Mean Platelet Volume 9.9 FL (9.6-12.0); Neutrophils % 46.4 % (38.7-73.9); Platelet Count 318 T/CUMM (130-400); Red Blood Count 4.07 MC/CUMM (3.8-5.5); Red Cell Distribution Width 15.3 % (9.3-17.3); White Blood Count 10.8 T/CUMM (4-12)
[2019-07-01] MEDS ORDERED: ALBUTEROL NEB SOLN 5 MG/ML 20 ML/BOTTLE CONT NEB SCH (01:00)
[2019-07-01 01:01] LABS: INR 0.9; PT Patient Result 10.3 SECS (9.6-12.2); Partial Thromboplastin Time 24.3 SECS (20.8-36.0)
[2019-07-01 01:14] LABS: Alanine Aminotransferase 34 U/L (13-56); Albumin 3.6 G/DL (3.4-5.0); Alkaline Phosphatase 172 U/L (45-117); Aspartate Amino Transferase 65 U/L (0-37); Bilirubin,Total < 0.39 MG/DL (0.2-1.0); Blood Urea Nitrogen 19 MG/DL (7-18); CKMB % 3.5 %; Calcium 8.4 MG/DL (8.5-10.1); Estimated Glom Filtration Rate 45 ML/MIN; Glucose 284 MG/DL (74-106); Osmolality,Calculated 286.7 MOS/KG (273-304); Total Protein 7.3 G/DL (6.4-8.3)
[2019-07-01 01:17] LABS: Troponin I 0.657 NG/ML (0.00-0.045)
[2019-07-01 02:08] LABS: Apearance,Urine Slightly Hazy (Clear); Bacteria,Urine Many /HPF (Few); Bilirubin,Urine Negative (Negative); Blood, Urine Small mg/dL (Negative); Glucose,Urine (UA) Negative (Negative); Hyaline Casts,Urine 6 /LPF (0-3); Ketones,Urine Negative (Negative); Mucus,Urine Moderate /LPF (Occasional); Nitrite,Urine Positive (Negative); Protein,Urine 30 MG/DL; RBC,Urine 5 /HPF (0-4); Squamous Epithelial Cell,Urine Occasional /HPF (0-10); Urine Color Yellow (Yellow); Urine Specific Gravity 1.017 (1.001-1.035); Urine Urobilinogen < 2.0 EU/DL (0.2-1.0); WBC,Urine 20 /HPF (0-6)
[2019-07-01] MEDS ORDERED: ALBUTEROL/IPRATROPIUM 3 ML NEB RESP TX STA (02:53)
[2019-07-01 03:25] LABS: ABG Base Excess 1.2 MMOL/L (-2.5-2.5); ABG HCO3 25.3 MMOL/L (20-26); ABG Oxygen Saturation 89.4 % (95-100); ABG PCO2 52.3 MM HG (35-48); ABG PH 7.334 (7.35-7.45); ABG PO2 61.8 MM HG (80-95); ABG TCO2 25.4 MMOL/L (23-27); Allen Test Positive
[2019-07-01] MEDS ORDERED: hydrALAZINE 20 MG/1 ML VIAL IV PRN (03:35)
[2019-07-01] MEDS ORDERED: ACETAMINOPHEN 325 MG TABLET PO PRN (03:35)
[2019-07-01] MEDS ORDERED: BISACODYL 5 MG TABLET PO PRN (03:35)
[2019-07-01] MEDS ORDERED: guaiFENesin/DM ER 600-30 MG TABLET PO PRN (03:35)
[2019-07-01] MEDS ORDERED: CALCIUM CARBONATE CHEW 500 MG TABLET PO PRN (03:35)
[2019-07-01] MEDS ORDERED: ALBUTEROL 2.5 MG/3 ML NEB RESP TX PRN (03:35)
[2019-07-01] MEDS ORDERED: ONDANSETRON 4 MG/2 ML VIAL IV PRN (03:35)
[2019-07-01] MEDS ORDERED: NICOTINE 21 MG/24 HR PATCH TRANSDERM PRN (03:35)
[2019-07-01] MEDS ORDERED: NOREPINEPHRINE 8 MG in SODIUM CHLORIDE 0.9% 242 ML IV PRN (03:57)
[2019-07-01] MEDS ORDERED: SODIUM CHLORIDE 0.9% 500 ML IV ONE (03:57)
[2019-07-01] MEDS: methylPREDNISolone SOD SUC 40 MG/1 ML VIAL IV SCH ×3 (04:35→20:41)
[2019-07-01] MEDS: SODIUM CHLORIDE 0.9% 1,000 ML IV SCH ×3 (04:36→21:38)
[2019-07-01] MEDS: PIPERACILLIN/TAZOBACTAM 3,375 MG in SODIUM CHLORIDE 0.9% 100 ML IV SCH ×3 (04:37→23:49)
[2019-07-01 05:37] LABS: ABG Base Excess 2.9 MMOL/L (-2.5-2.5); ABG HCO3 26.9 MMOL/L (20-26); ABG Oxygen Saturation 94.1 % (95-100); ABG PCO2 47.2 MM HG (35-48); ABG PH 7.389 (7.35-7.45); ABG PO2 71.3 MM HG (80-95); ABG TCO2 25.7 MMOL/L (23-27); Allen Test Positive; Pt O2 Delivery Device BIPAP
[2019-07-01] MEDS: ALBUTEROL/IPRATROPIUM 3 ML NEB RESP TX SCH ×3 (07:36→19:10)
[2019-07-01 08:16] LABS: ABG Base Excess 2.7 MMOL/L (-2.5-2.5); ABG HCO3 26.7 MMOL/L (20-26); ABG Oxygen Saturation 90.4 % (95-100); ABG PCO2 44.3 MM HG (35-48); ABG PH 7.406 (7.35-7.45); ABG PO2 60.4 MM HG (80-95); ABG TCO2 25.4 MMOL/L (23-27); Allen Test Positive; Pt O2 Delivery Device BIPAP
[2019-07-01] MEDS ORDERED: NITROGLYCERIN 2% OINT 1 INCH/GM PACK TOP ONE (09:16)
[2019-07-01] MEDS: VANCOMYCIN INJ 1,500 MG in SODIUM CHLORIDE 0.9% 500 ML IV SCH (09:20)
[2019-07-01] MEDS: FUROSEMIDE 40 MG/4 ML VIAL IV SCH ×2 (09:20→17:39)
[2019-07-01] MEDS: MORPHINE 4 MG/1 ML VIAL IV PRN (09:20)
[2019-07-01] MEDS ORDERED: METOPROLOL TARTRATE 5 MG/5 ML VIAL IV ONE (09:23)
[2019-07-01] MEDS: NITROGLYCERIN 2% OINT 1 INCH/GM PACK TOP SCH ×4 (09:28→23:49)
[2019-07-01] MEDS ORDERED: ENOXAPARIN 100 MG/ML SYRINGE SUBCUT ONE (09:34)
[2019-07-01] MEDS ORDERED: ASPIRIN CHEW 81 MG TABLET PO ONE (09:36)
[2019-07-01] MEDS ORDERED: DIAZEPAM 5 MG TABLET PO ONE ×2 (09:37)
[2019-07-01] MEDS ORDERED: POTASSIUM CHLORIDE RIDER 10 MEQ in PREMIX 1 EACH IV PRN (09:37)
[2019-07-01] MEDS ORDERED: MAGNESIUM SULF RIDER 2 GM in PREMIX 1 EACH IV PRN (09:37)
[2019-07-01] MEDS ORDERED: diphenhydrAMINE CAP 50 MG CAPSULE PO ONE (09:40)
[2019-07-01] MEDS: TIROFIBAN 5,000 MCG/100 ML PREMIX IV SCH (13:13)
[2019-07-01 15:25] LABS: Troponin I 12.8 NG/ML (0.00-0.045)
[2019-07-01 15:56] LABS: ABG Base Excess 0.6 MMOL/L (-2.5-2.5); ABG Oxygen Saturation 99.3 % (95-100); ABG PCO2 50.4 MM HG (35-48); ABG PH 7.338 (7.35-7.45); ABG TCO2 24.7 MMOL/L (23-27)
[2019-07-01] MEDS ORDERED: PHENYLEPHRINE DRIP 40 MG/250 ML PREMIX IV ONE (18:32)
[2019-07-01] MEDS ORDERED: LORazepam INJ 40 MG in DEXTROSE 5% 30 ML IV PRN (18:39)
[2019-07-01] MEDS ORDERED: DOPamine 800 MG/250 ML PREMIX IV PRN (18:39)
[2019-07-01] MEDS ORDERED: MIDAZOLAM 100 MG in SODIUM CHLORIDE 0.9% 80 ML IV PRN (18:39)
[2019-07-01] MEDS: PHENYLEPHRINE DRIP 40 MG/250 ML PREMIX IV PRN (18:43)
[2019-07-01] MEDS: TICAGRELOR 90 MG TABLET PO SCH (20:40)
[2019-07-02] MEDS: ALBUTEROL/IPRATROPIUM 3 ML NEB RESP TX SCH ×4 (00:02→19:30)
[2019-07-02] MEDS: VANCOMYCIN INJ 1,500 MG in SODIUM CHLORIDE 0.9% 500 ML IV SCH ×2 (03:26→20:30)
[2019-07-02 03:51] LABS: ABG Base Excess 3.4 MMOL/L (-2.5-2.5); ABG HCO3 27.5 MMOL/L (20-26); ABG Oxygen Saturation 99.7 % (95-100); ABG PCO2 34.5 MM HG (35-48); ABG PH 7.495 (7.35-7.45); ABG TCO2 24.5 MMOL/L (23-27); Allen Test Positive; Pt O2 Delivery Device Ventilator
[2019-07-02] MEDS: SODIUM CHLORIDE 0.9% 1,000 ML IV SCH ×3 (04:22→14:37)
[2019-07-02] MEDS: TIROFIBAN 5,000 MCG/100 ML PREMIX IV SCH (04:22)
[2019-07-02] MEDS: methylPREDNISolone SOD SUC 40 MG/1 ML VIAL IV SCH ×3 (04:31→20:29)
[2019-07-02 04:46] LABS: Basophils % 0.1 % (0.0-0.8); Eosinophils % 0.1 % (0.00-10.9); Hematocrit 29.8 VOL% (35.7-47.0); Hemoglobin 9.2 GM/DL (12.0-16.0); Immature Granulocytes % 0.4 %; Immature Granulocytes Absolute 0.05 #; Lymphocytes % 7.7 % (21.3-54.2); Mean Corpuscular HGB Conc 30.9 GM/DL (32-36); Mean Corpuscular Volume 81.6 FL (87-102); Mean Platelet Volume 10.4 FL (9.6-12.0); Monocytes % 2.7 % (1.7-12.7); Platelet Count 290 T/CUMM (130-400); Red Blood Count 3.65 MC/CUMM (3.8-5.5); Red Cell Distribution Width 15.3 % (9.3-17.3); White Blood Count 12.4 T/CUMM (4-12)
[2019-07-02] MEDS: NITROGLYCERIN 2% OINT 1 INCH/GM PACK TOP SCH (05:02)
[2019-07-02 05:05] LABS: Hypochromasia 2+; Ovalocytes Slight; Platelet Estimate Adequate
[2019-07-02 05:16] LABS: CKMB % 5.9 %
[2019-07-02 05:22] LABS: Troponin I 14.3 NG/ML (0.00-0.045)
[2019-07-02 06:00] LABS: Calcium 7.3 MG/DL (8.5-10.1); Osmolality,Calculated 278.7 MOS/KG (273-304)
[2019-07-02] MEDS: PHENYLEPHRINE DRIP 40 MG/250 ML PREMIX IV PRN (08:44)
[2019-07-02] MEDS: FUROSEMIDE 40 MG/4 ML VIAL IV SCH ×2 (08:44→15:38)
[2019-07-02] MEDS: PIPERACILLIN/TAZOBACTAM 3,375 MG in SODIUM CHLORIDE 0.9% 100 ML IV SCH ×2 (08:46→15:38)
[2019-07-02] MEDS: TICAGRELOR 90 MG TABLET PO SCH (08:47)
[2019-07-02] MEDS: OMEPRAZOLE ODT 20 MG TABLET NG SCH (08:47)
[2019-07-02] MEDS: ASPIRIN CHEW 81 MG TABLET PO SCH (08:47)
[2019-07-02] MEDS ORDERED: MAGNESIUM SULF RIDER 4 GM in PREMIX 1 EACH IV ONE (08:49)
[2019-07-02] MEDS ORDERED: SIMVASTATIN 40 MG TABLET PO SCH (09:00)
[2019-07-02] MEDS: EZETIMIBE 10 MG TABLET NG SCH (09:28)
[2019-07-02] MEDS: ENOXAPARIN 40 MG/0.4 ML SYRINGE SUBCUT SCH (09:28)
[2019-07-02] MEDS: MORPHINE 4 MG/1 ML VIAL IV PRN (12:23)
[2019-07-02] MEDS ORDERED: NITROGLYCERIN SL 0.4 MG TABLET SL ONE ×4 (16:06→16:20)
[2019-07-02] MEDS ORDERED: ASPIRIN CHEW 81 MG TABLET PO ONE (16:17)
[2019-07-02] MEDS ORDERED: NITROGLYCERIN DRIP 50 MG/250 ML BOTTLE IV PRN (16:26)
[2019-07-02] MEDS ORDERED: PRASUGREL 10 MG TABLET PO ONE ×2 (16:39)
[2019-07-02 17:03] LABS: CKMB % 3.5 %
[2019-07-02 17:06] LABS: Troponin I 5.76 NG/ML (0.00-0.045)
[2019-07-02] MEDS: METOPROLOL SUCCINATE XL 25 MG TABLET PO SCH ×2 (17:22→20:30)
[2019-07-02] MEDS: SIMVASTATIN 40 MG TABLET PO SCH (17:22)
[2019-07-02 19:47] LABS: Troponin I 4.66 NG/ML (0.00-0.045)
[2019-07-02 22:02] LABS: CKMB % 2.8 %
[2019-07-02 22:04] LABS: Troponin I 4.73 NG/ML (0.00-0.045)
[2019-07-03] MEDS: PIPERACILLIN/TAZOBACTAM 3,375 MG in SODIUM CHLORIDE 0.9% 100 ML IV SCH ×2 (00:28→08:36)
[2019-07-03] MEDS: diphenhydrAMINE CAP 25 MG CAPSULE PO PRN (00:38)
[2019-07-03] MEDS: ALBUTEROL/IPRATROPIUM 3 ML NEB RESP TX SCH ×4 (00:51→19:16)
[2019-07-03 03:30] LABS: ABG Base Excess 5.2 MMOL/L (-2.5-2.5); ABG HCO3 29.2 MMOL/L (20-26); ABG Oxygen Saturation 97.9 % (95-100); ABG PCO2 43.7 MM HG (35-48); ABG PH 7.443 (7.35-7.45); ABG TCO2 27.7 MMOL/L (23-27); Allen Test Positive; Pt O2 Delivery Device Venturi Mask
[2019-07-03] MEDS: methylPREDNISolone SOD SUC 40 MG/1 ML VIAL IV SCH ×2 (03:58→11:01)
[2019-07-03 04:43] LABS: Basophils % 0.1 % (0.0-0.8); Hematocrit 26.8 VOL% (35.7-47.0); Hemoglobin 8.2 GM/DL (12.0-16.0); Immature Granulocytes % 0.7 %; Immature Granulocytes Absolute 0.08 #; Lymphocytes # 0.8 10*3/uL (1.4-4.0); Lymphocytes % 7.3 % (21.3-54.2); Mean Corpuscular HGB Conc 30.6 GM/DL (32-36); Mean Corpuscular Volume 82.2 FL (87-102); Mean Platelet Volume 9.9 FL (9.6-12.0); Monocytes % 4.1 % (1.7-12.7); Neutrophils % 87.8 % (38.7-73.9); Platelet Count 219 T/CUMM (130-400); Red Blood Count 3.26 MC/CUMM (3.8-5.5); Red Cell Distribution Width 15.3 % (9.3-17.3); White Blood Count 11.1 T/CUMM (4-12)
[2019-07-03 05:19] LABS: Calcium 6.7 MG/DL (8.5-10.1); Osmolality,Calculated 288.1 MOS/KG (273-304)
[2019-07-03] MEDS: POTASSIUM CHLORIDE 20 MEQ/15 ML UDCUP PER TUBE PRN ×2 (06:12→08:35)
[2019-07-03] MEDS: FUROSEMIDE 40 MG/4 ML VIAL IV SCH ×2 (08:35→15:20)
[2019-07-03] MEDS: ENOXAPARIN 40 MG/0.4 ML SYRINGE SUBCUT SCH (08:36)
[2019-07-03] MEDS: EZETIMIBE 10 MG TABLET NG SCH (08:43)
[2019-07-03] MEDS: PRASUGREL 10 MG TABLET PO SCH (08:44)
[2019-07-03] MEDS: SIMVASTATIN 40 MG TABLET PO SCH (08:44)
[2019-07-03] MEDS: ASPIRIN CHEW 81 MG TABLET PO SCH (08:44)
[2019-07-03] MEDS: OMEPRAZOLE ODT 20 MG TABLET NG SCH (08:44)
[2019-07-03] MEDS: METOPROLOL SUCCINATE XL 25 MG TABLET PO SCH (08:44)
[2019-07-03] MEDS: POTASSIUM CHLORIDE 20 MEQ TABLET PO SCH ×3 (11:01→18:01)
[2019-07-03] MEDS ORDERED: ALBUTEROL 2.5 MG/3 ML NEB RESP TX PRN (12:44)
[2019-07-03] MEDS ORDERED: AZITHROMYCIN 250 MG TABLET PO ONE (12:45)
[2019-07-03] MEDS ORDERED: BISOPROLOL 5 MG TABLET PO ONE (13:28)
[2019-07-03] MEDS: cefTRIAXone 1,000 MG in SYRINGE 1 EACH IV SCH (13:38)
[2019-07-03] MEDS: GABAPENTIN 300 MG CAPSULE PO SCH ×2 (15:23→20:47)
[2019-07-03] MEDS: BISOPROLOL 5 MG TABLET PO SCH (20:48)
[2019-07-04] MEDS: ALBUTEROL/IPRATROPIUM 3 ML NEB RESP TX SCH ×4 (01:00→19:29)
[2019-07-04] MEDS: diphenhydrAMINE CAP 25 MG CAPSULE PO PRN (01:04)
[2019-07-04] MEDS: POTASSIUM CHLORIDE 20 MEQ TABLET PO PRN ×4 (01:52→08:11)
[2019-07-04 04:27] LABS: Allen Test Positive; Pt O2 Delivery Device Venturi Mask
[2019-07-04 04:28] LABS: ABG Base Excess 6.2 MMOL/L (-2.5-2.5); ABG Oxygen Saturation 97.1 % (95-100); ABG PCO2 40.9 MM HG (35-48); ABG PH 7.477 (7.35-7.45); ABG PO2 79.6 MM HG (80-95); ABG TCO2 27.9 MMOL/L (23-27)
[2019-07-04 04:47] LABS: Basophils % 0.1 % (0.0-0.8); Hematocrit 28.3 VOL% (35.7-47.0); Hemoglobin 8.3 GM/DL (12.0-16.0); Immature Granulocytes % 0.8 %; Lymphocytes # 2.7 10*3/uL (1.4-4.0); Lymphocytes % 21.3 % (21.3-54.2); Mean Corpuscular HGB Conc 29.3 GM/DL (32-36); Mean Platelet Volume 10.2 FL (9.6-12.0); Monocytes % 7.7 % (1.7-12.7); NRBC # 0.04 10*3/uL; Neutrophils % 70.1 % (38.7-73.9); Platelet Count 223 T/CUMM (130-400); Red Blood Count 3.33 MC/CUMM (3.8-5.5); Red Cell Distribution Width 15.3 % (9.3-17.3); White Blood Count 12.5 T/CUMM (4-12)
[2019-07-04 05:06] LABS: Calcium 7.4 MG/DL (8.5-10.1)
[2019-07-04 05:12] LABS: Troponin I 5.8 NG/ML (0.00-0.045)
[2019-07-04] MEDS: LEVOTHYROXINE 100 MCG TABLET PO SCH (05:37)
[2019-07-04] MEDS: FUROSEMIDE 40 MG/4 ML VIAL IV SCH ×2 (07:00→15:40)
[2019-07-04] MEDS: BISOPROLOL 5 MG TABLET PO SCH ×2 (08:07→20:30)
[2019-07-04] MEDS: SIMVASTATIN 40 MG TABLET PO SCH (08:07)
[2019-07-04] MEDS: GABAPENTIN 300 MG CAPSULE PO SCH ×3 (08:07→20:31)
[2019-07-04] MEDS: AZITHROMYCIN 250 MG TABLET PO SCH (08:07)
[2019-07-04] MEDS: PRASUGREL 10 MG TABLET PO SCH (08:07)
[2019-07-04] MEDS: predniSONE 20 MG TABLET PO SCH (08:07)
[2019-07-04] MEDS: EZETIMIBE 10 MG TABLET NG SCH (08:07)
[2019-07-04] MEDS: OMEPRAZOLE ODT 20 MG TABLET NG SCH (08:07)
[2019-07-04] MEDS: ASPIRIN CHEW 81 MG TABLET PO SCH (08:08)
[2019-07-04] MEDS: ENOXAPARIN 40 MG/0.4 ML SYRINGE SUBCUT SCH (08:08)
[2019-07-04] MEDS: POTASSIUM CHLORIDE 20 MEQ TABLET PO SCH ×4 (10:19→20:31)
[2019-07-04] MEDS: cefTRIAXone 1,000 MG in SYRINGE 1 EACH IV SCH (12:37)
[2019-07-04] MEDS: ISOSORBIDE MONONITRATE 20 MG TABLET PO SCH ×2 (12:38→20:31)
[2019-07-04] MEDS: VENLAFAXINE 37.5 MG TABLET PO SCH (12:40)
[2019-07-05] MEDS: ALBUTEROL/IPRATROPIUM 3 ML NEB RESP TX SCH ×4 (00:55→19:57)
[2019-07-05 04:21] LABS: Basophils % 0.1 % (0.0-0.8); Eosinophils % 0.1 % (0.00-10.9); Hematocrit 29.6 VOL% (35.7-47.0); Hemoglobin 8.8 GM/DL (12.0-16.0); Immature Granulocytes % 0.9 %; Lymphocytes # 2.9 10*3/uL (1.4-4.0); Lymphocytes % 25.3 % (21.3-54.2); Mean Corpuscular HGB Conc 29.7 GM/DL (32-36); Mean Corpuscular Volume 84.8 FL (87-102); Mean Platelet Volume 10.1 FL (9.6-12.0); Monocytes % 6.8 % (1.7-12.7); NRBC # 0.04 10*3/uL; Neutrophils % 66.8 % (38.7-73.9); Platelet Count 219 T/CUMM (130-400); Red Blood Count 3.49 MC/CUMM (3.8-5.5); Red Cell Distribution Width 15.2 % (9.3-17.3); White Blood Count 11.3 T/CUMM (4-12)
[2019-07-05 04:47] LABS: Calcium 8.5 MG/DL (8.5-10.1); Osmolality,Calculated 278.7 MOS/KG (273-304)
[2019-07-05] MEDS: POTASSIUM CHLORIDE 20 MEQ TABLET PO PRN ×2 (05:44→09:04)
[2019-07-05] MEDS: LEVOTHYROXINE 100 MCG TABLET PO SCH (05:44)
[2019-07-05] MEDS: FUROSEMIDE 40 MG/4 ML VIAL IV SCH ×2 (08:57→15:45)
[2019-07-05] MEDS: ENOXAPARIN 40 MG/0.4 ML SYRINGE SUBCUT SCH (09:03)
[2019-07-05] MEDS: predniSONE 20 MG TABLET PO SCH (09:03)
[2019-07-05] MEDS: AZITHROMYCIN 250 MG TABLET PO SCH (09:03)
[2019-07-05] MEDS: GABAPENTIN 300 MG CAPSULE PO SCH ×3 (09:03→21:15)
[2019-07-05] MEDS: ASPIRIN CHEW 81 MG TABLET PO SCH (09:04)
[2019-07-05] MEDS: SIMVASTATIN 40 MG TABLET PO SCH (09:04)
[2019-07-05] MEDS: VENLAFAXINE 37.5 MG TABLET PO SCH (09:04)
[2019-07-05] MEDS: EZETIMIBE 10 MG TABLET NG SCH (09:04)
[2019-07-05] MEDS: OMEPRAZOLE ODT 20 MG TABLET NG SCH (09:04)
[2019-07-05] MEDS: ISOSORBIDE MONONITRATE 20 MG TABLET PO SCH ×2 (09:05→21:14)
[2019-07-05] MEDS: PRASUGREL 10 MG TABLET PO SCH (09:06)
[2019-07-05] MEDS: BISOPROLOL 5 MG TABLET PO SCH ×2 (09:12→21:14)
[2019-07-05] MEDS ORDERED: ALBUTEROL 2.5 MG/3 ML NEB RESP TX PRN (10:30)
[2019-07-05] MEDS ORDERED: POTASSIUM CHLORIDE 20 MEQ TABLET PO ONE (11:02)
[2019-07-05] MEDS ORDERED: EZETIMIBE 10 MG TABLET PO SCH (11:04)
[2019-07-05] MEDS ORDERED: POTASSIUM CHLORIDE 20 MEQ/15 ML UDCUP PO PRN (11:04)
[2019-07-05] MEDS: cefTRIAXone 1,000 MG in SYRINGE 1 EACH IV SCH (12:41)
[2019-07-05] MEDS: LOSARTAN 25 MG TABLET PO SCH (12:42)
[2019-07-05] MEDS: POTASSIUM CHLORIDE 20 MEQ/15 ML UDCUP PO SCH (21:17)
[2019-07-06] MEDS: ALBUTEROL/IPRATROPIUM 3 ML NEB RESP TX SCH ×3 (00:02→13:15)
[2019-07-06 04:39] LABS: Basophils % 0.2 % (0.0-0.8); Eosinophils % 0.1 % (0.00-10.9); Hematocrit 35.1 VOL% (35.7-47.0); Hemoglobin 10.4 GM/DL (12.0-16.0); Immature Granulocytes % 0.8 %; Lymphocytes # 3.1 10*3/uL (1.4-4.0); Lymphocytes % 23.9 % (21.3-54.2); Mean Corpuscular HGB Conc 29.6 GM/DL (32-36); Mean Corpuscular Volume 84.4 FL (87-102); Mean Platelet Volume 10.3 FL (9.6-12.0); Monocytes % 6.7 % (1.7-12.7); NRBC # 0.09 10*3/uL; Neutrophils % 68.3 % (38.7-73.9); Platelet Count 267 T/CUMM (130-400); Red Blood Count 4.16 MC/CUMM (3.8-5.5); Red Cell Distribution Width 14.9 % (9.3-17.3); White Blood Count 12.8 T/CUMM (4-12)
[2019-07-06 05:08] LABS: Risk Ratio 3.58
[2019-07-06 05:16] LABS: Calcium 8.7 MG/DL (8.5-10.1)
[2019-07-06] MEDS: LEVOTHYROXINE 100 MCG TABLET PO SCH (05:55)
[2019-07-06] MEDS ORDERED: ASPIRIN EC 81 MG TABLET PO SCH (09:00)
[2019-07-06] MEDS ORDERED: amLODIPine 5 MG TABLET PO SCH (09:00)
[2019-07-06] MEDS: FUROSEMIDE 40 MG/4 ML VIAL IV SCH (09:13)
[2019-07-06] MEDS: POTASSIUM CHLORIDE 20 MEQ/15 ML UDCUP PO SCH (09:14)
[2019-07-06] MEDS: ENOXAPARIN 40 MG/0.4 ML SYRINGE SUBCUT SCH (09:14)
[2019-07-06] MEDS: OMEPRAZOLE ODT 20 MG TABLET NG SCH (09:15)
[2019-07-06] MEDS: BISOPROLOL 5 MG TABLET PO SCH (09:15)
[2019-07-06] MEDS: SIMVASTATIN 40 MG TABLET PO SCH (09:15)
[2019-07-06] MEDS: LOSARTAN 25 MG TABLET PO SCH (09:16)
[2019-07-06] MEDS: VENLAFAXINE 37.5 MG TABLET PO SCH (09:16)
[2019-07-06] MEDS: PRASUGREL 10 MG TABLET PO SCH (09:16)
[2019-07-06] MEDS: predniSONE 20 MG TABLET PO SCH (09:16)
[2019-07-06] MEDS: ISOSORBIDE MONONITRATE 20 MG TABLET PO SCH (09:16)
[2019-07-06] MEDS: AZITHROMYCIN 250 MG TABLET PO SCH (09:16)
[2019-07-06] MEDS: GABAPENTIN 300 MG CAPSULE PO SCH ×2 (09:16→16:03)
[2019-07-06] MEDS: cefTRIAXone 1,000 MG in SYRINGE 1 EACH IV SCH (12:15)
[2019-07-06 12:20] VITALS: BP 129/72
[2019-07-06] MEDS ORDERED: FUROSEMIDE 40 MG TABLET PO SCH (16:00)
[2019-07-06] MEDS ORDERED: CEFUROXIME 500 MG TABLET PO SCH (21:00)
== END 2019-07-06 17:00 | disposition home or self-care (01) | DRG 246 ==
LOC: N.ED 00:13 → SUATTDRO 03:18 → N.EDINP 03:18 → N.CC 04:44
PROVIDERS: ADMIT Internal Medicine; ATTEND Internal Medicine

== ENCOUNTER 2019-07-07 08:58 | Observation (INO) ==
[2019-07-07] MEDS ORDERED: SODIUM CHLORIDE 0.9% 1,000 ML IV STA (09:25)
[2019-07-07] MEDS ORDERED: ALBUTEROL/IPRATROPIUM 3 ML NEB RESP TX STA (09:26)
[2019-07-07] MEDS ORDERED: SODIUM CHLORIDE 0.9% 500 ML IV STA (09:27)
[2019-07-07] MEDS ORDERED: DILTIAZEM 50 MG/10 ML VIAL IV STA (09:30)
[2019-07-07 09:40] LABS: Basophils # 0.1 10*3/uL (0.0-0.2); Basophils % 0.2 % (0.0-0.8); Eosinophils # 0.1 10*3/uL (0.0-0.87); Eosinophils % 0.3 % (0.00-10.9); Immature Granulocytes % 1.1 %; Immature Granulocytes Absolute 0.23 #; Lymphocytes # 4.8 10*3/uL (1.4-4.0); Lymphocytes % 22.5 % (21.3-54.2); Mean Corpuscular HGB Conc 30.2 GM/DL (32-36); Mean Corpuscular Volume 82.8 FL (87-102); Mean Platelet Volume 10.2 FL (9.6-12.0); Monocytes % 7.2 % (1.7-12.7); Neutrophils % 68.7 % (38.7-73.9); Red Cell Distribution Width 15.8 % (9.3-17.3)
[2019-07-07 09:41] LABS: NRBC # 0.05 10*3/uL
[2019-07-07 09:46] LABS: Red Blood Count 5.07 MC/CUMM (3.8-5.5); White Blood Count 21.4 T/CUMM (4-12)
[2019-07-07 09:47] LABS: Hemoglobin 12.7 GM/DL (12.0-16.0); Platelet Count 399 T/CUMM (130-400)
[2019-07-07 09:53] LABS: Lymphocytes 25 % (20-55); Segmented Neutrophils 69 % (50-85); Total Cells Counted 100
[2019-07-07 09:54] LABS: Hypochromasia 1+; Platelet Estimate Adequate
[2019-07-07 10:00] LABS: Albumin 4.1 G/DL (3.4-5.0); Bilirubin,Total 0.6 MG/DL (0.2-1.0); Calcium 9.6 MG/DL (8.5-10.1); Osmolality,Calculated 277.2 MOS/KG (273-304); Total Protein 7.9 G/DL (6.4-8.3)
[2019-07-07] MEDS ORDERED: ONDANSETRON 4 MG/2 ML VIAL IV STA (10:35)
[2019-07-07] MEDS ORDERED: ONDANSETRON 4 MG/2 ML VIAL ONE (10:37)
[2019-07-07] MEDS ORDERED: CALCIUM CARBONATE CHEW 500 MG TABLET PO PRN (10:45)
[2019-07-07] MEDS ORDERED: guaiFENesin/DM ER 600-30 MG TABLET PO PRN (10:45)
[2019-07-07] MEDS ORDERED: MAGNESIUM SULF RIDER 2 GM in PREMIX 1 EACH IV PRN (10:45)
[2019-07-07] MEDS ORDERED: diphenhydrAMINE CAP 25 MG CAPSULE PO PRN (10:45)
[2019-07-07] MEDS ORDERED: ZALEPLON 5 MG CAPSULE PO PRN (10:45)
[2019-07-07] MEDS ORDERED: MAGNESIUM SULF RIDER 4 GM in PREMIX 1 EACH IV PRN (10:45)
[2019-07-07] MEDS ORDERED: ONDANSETRON 4 MG/2 ML VIAL IV PRN ×2 (10:45→16:54)
[2019-07-07] MEDS ORDERED: DOCUSATE SODIUM 100 MG CAPSULE PO PRN (10:45)
[2019-07-07] MEDS ORDERED: ALUMINUM/MAGNES/SIMETH MAX STR 30 ML UDCUP PO PRN (10:45)
[2019-07-07] MEDS ORDERED: LACTULOSE 20 GM/30 ML UDCUP PO PRN (10:45)
[2019-07-07] MEDS ORDERED: hydrALAZINE 20 MG/1 ML VIAL IV PRN (10:45)
[2019-07-07] MEDS ORDERED: ACETAMINOPHEN 325 MG TABLET PO PRN (10:45)
[2019-07-07] MEDS ORDERED: dilTIAZem Drip 125 MG/125 ML PREMIX IV ONE (11:01)
[2019-07-07] MEDS ORDERED: ENOXAPARIN 100 MG/ML SYRINGE SUBCUT STA (11:25)
[2019-07-07] MEDS ORDERED: dilTIAZem Drip 125 MG/125 ML PREMIX IV SCH (11:30)
[2019-07-07] MEDS ORDERED: LYSINE 500 MG TABLET PO PRN (12:42)
[2019-07-07] MEDS: RANOLAZINE 500 MG TABLET PO SCH (15:28)
[2019-07-07] MEDS: BISOPROLOL 5 MG TABLET PO SCH (15:28)
[2019-07-07] MEDS: FUROSEMIDE 40 MG TABLET PO SCH (15:29)
[2019-07-07] MEDS: GABAPENTIN 300 MG CAPSULE PO SCH (15:29)
[2019-07-07 17:43] LABS: Apearance,Urine Slightly Hazy (Clear); Bilirubin,Urine Negative (Negative); Blood, Urine Negative (Negative); Glucose,Urine (UA) Negative (Negative); Ketones,Urine Negative (Negative); Mucus,Urine Occasional /LPF (Occasional); Nitrite,Urine Negative (Negative); Protein,Urine Negative; RBC,Urine 2 /HPF (0-4); Squamous Epithelial Cell,Urine Occasional /HPF (0-10); Urine Color Yellow (Yellow); Urine Specific Gravity 1.021 (1.001-1.035); Urine Urobilinogen < 2.0 EU/DL (0.2-1.0); WBC,Urine 5 /HPF (0-6)
[2019-07-08] MEDS: CEFUROXIME 500 MG TABLET PO SCH ×3 (00:07→21:10)
[2019-07-08] MEDS: RANOLAZINE 500 MG TABLET PO SCH ×3 (00:07→20:54)
[2019-07-08] MEDS: ISOSORBIDE MONONITRATE 20 MG TABLET PO SCH ×2 (00:07→10:26)
[2019-07-08] MEDS: BISOPROLOL 5 MG TABLET PO SCH ×3 (00:07→20:54)
[2019-07-08] MEDS: ENOXAPARIN 100 MG/ML SYRINGE SUBCUT SCH ×2 (00:07→10:27)
[2019-07-08] MEDS: GABAPENTIN 300 MG CAPSULE PO SCH ×4 (00:07→20:55)
[2019-07-08 05:32] LABS: Basophils % 0.1 % (0.0-0.8); Eosinophils # 0.2 10*3/uL (0.0-0.87); Eosinophils % 1.3 % (0.00-10.9); Immature Granulocytes % 0.7 %; Lymphocytes % 19.2 % (21.3-54.2); Mean Corpuscular HGB Conc 28.8 GM/DL (32-36); Mean Platelet Volume 10.2 FL (9.6-12.0); Monocytes % 5.9 % (1.7-12.7); Neutrophils % 72.8 % (38.7-73.9); Platelet Count 329 T/CUMM (130-400); Red Blood Count 4.44 MC/CUMM (3.8-5.5); Red Cell Distribution Width 15.6 % (9.3-17.3); White Blood Count 15.3 T/CUMM (4-12)
[2019-07-08 05:55] LABS: Blood Urea Nitrogen 29 MG/DL (7-18); Estimated Glom Filtration Rate 59 ML/MIN; Glucose 88 MG/DL (74-106); Osmolality,Calculated 274.1 MOS/KG (273-304)
[2019-07-08 05:57] LABS: Hematocrit 37.2 VOL% (35.7-47.0)
[2019-07-08 06:06] LABS: Hypochromasia 1+; Microcytosis 1+; Ovalocytes Slight; Platelet Estimate Normal
[2019-07-08] MEDS: LEVOTHYROXINE 100 MCG TABLET PO SCH (06:45)
[2019-07-08] MEDS: FUROSEMIDE 40 MG TABLET PO SCH ×2 (10:23→16:11)
[2019-07-08] MEDS: COENZYME Q10 100 MG CAPSULE PO SCH (10:24)
[2019-07-08] MEDS: AMIODARONE 200 MG TABLET PO SCH ×2 (10:24→20:55)
[2019-07-08] MEDS: ASPIRIN EC 81 MG TABLET PO SCH (10:24)
[2019-07-08] MEDS: PRASUGREL 10 MG TABLET PO SCH (10:25)
[2019-07-08] MEDS: LOSARTAN 25 MG TABLET PO SCH (10:25)
[2019-07-08] MEDS: predniSONE 20 MG TABLET PO SCH (10:27)
[2019-07-08] MEDS: PANTOPRAZOLE 40 MG TABLET PO SCH (10:28)
[2019-07-08] MEDS: EZETIMIBE 10 MG TABLET PO SCH (10:29)
[2019-07-08] MEDS: CALCIUM (CARBONATE)/VITAMIN D 600 MG-400 UNIT TABLET PO SCH (10:30)
[2019-07-08] MEDS: VENLAFAXINE XR 37.5 MG CAPSULE PO SCH (10:34)
[2019-07-09 05:30] LABS: Basophils % 0.1 % (0.0-0.8); Eosinophils % 0.1 % (0.00-10.9); Hematocrit 32.4 VOL% (35.7-47.0); Hemoglobin 9.6 GM/DL (12.0-16.0); Immature Granulocytes % 0.8 %; Immature Granulocytes Absolute 0.13 #; Lymphocytes # 2.1 10*3/uL (1.4-4.0); Lymphocytes % 13.8 % (21.3-54.2); Mean Corpuscular HGB Conc 29.6 GM/DL (32-36); Mean Corpuscular Volume 82.7 FL (87-102); Mean Platelet Volume 10.4 FL (9.6-12.0); Monocytes % 6.7 % (1.7-12.7); Neutrophils % 78.5 % (38.7-73.9); Platelet Count 258 T/CUMM (130-400); Red Blood Count 3.92 MC/CUMM (3.8-5.5); Red Cell Distribution Width 15.4 % (9.3-17.3); White Blood Count 15.3 T/CUMM (4-12)
[2019-07-09 05:44] LABS: Calcium 8.9 MG/DL (8.5-10.1); Osmolality,Calculated 273.2 MOS/KG (273-304)
[2019-07-09] MEDS: LEVOTHYROXINE 100 MCG TABLET PO SCH (06:46)
[2019-07-09] MEDS: BISOPROLOL 5 MG TABLET PO SCH (08:38)
[2019-07-09] MEDS: ASPIRIN EC 81 MG TABLET PO SCH (08:38)
[2019-07-09] MEDS: COENZYME Q10 100 MG CAPSULE PO SCH (08:38)
[2019-07-09] MEDS: AMIODARONE 200 MG TABLET PO SCH (08:38)
[2019-07-09] MEDS: PRASUGREL 10 MG TABLET PO SCH (08:38)
[2019-07-09] MEDS: FUROSEMIDE 40 MG TABLET PO SCH (08:38)
[2019-07-09] MEDS: EZETIMIBE 10 MG TABLET PO SCH (08:38)
[2019-07-09] MEDS: LOSARTAN 25 MG TABLET PO SCH (08:38)
[2019-07-09] MEDS: CEFUROXIME 500 MG TABLET PO SCH (08:38)
[2019-07-09] MEDS: PANTOPRAZOLE 40 MG TABLET PO SCH (08:39)
[2019-07-09] MEDS: predniSONE 20 MG TABLET PO SCH (08:39)
[2019-07-09] MEDS: RANOLAZINE 500 MG TABLET PO SCH (08:39)
[2019-07-09] MEDS: GABAPENTIN 300 MG CAPSULE PO SCH ×2 (08:44→14:33)
[2019-07-09] MEDS: CALCIUM (CARBONATE)/VITAMIN D 600 MG-400 UNIT TABLET PO SCH (08:44)
[2019-07-09] MEDS: VENLAFAXINE XR 37.5 MG CAPSULE PO SCH (08:44)
[2019-07-09] MEDS ORDERED: ERGOCALCIFEROL 50,000 UNIT CAPSULE PO SCH (09:00)
[2019-07-09] MEDS ORDERED: ENOXAPARIN 40 MG/0.4 ML SYRINGE SUBCUT SCH (09:00)
[2019-07-09] MEDS ORDERED: ISOSORBIDE MONONITRATE 30 MG TABLET PO SCH (09:00)
[2019-07-09 12:29] VITALS: BP 118/56
== END 2019-07-09 16:14 | disposition home or self-care (01) ==
LOC: N.ED 08:58 → N.EDINP 08:58 → N.TELES 12:29
PROVIDERS: ADMIT Internal Medicine Cardiovascular Disease; ATTEND Internal Medicine Cardiovascular Disease

== ENCOUNTER 2019-08-25 17:25 | Inpatient (IN) ==
[2019-08-25] MEDS ORDERED: methylPREDNISolone SOD SUC 125 MG/2 ML VIAL ONE (18:24)
[2019-08-25] MEDS ORDERED: FUROSEMIDE 40 MG/4 ML VIAL ONE (18:24)
[2019-08-25] MEDS ORDERED: FUROSEMIDE 40 MG/4 ML VIAL IV STA (18:26)
[2019-08-25] MEDS ORDERED: ASPIRIN 325 MG TABLET PO STA (18:26)
[2019-08-25] MEDS ORDERED: ALBUTEROL/IPRATROPIUM 3 ML NEB RESP TX STA (18:26)
[2019-08-25] MEDS ORDERED: ONDANSETRON 4 MG/2 ML VIAL IV STA (18:26)
[2019-08-25] MEDS ORDERED: methylPREDNISolone SOD SUC 125 MG/2 ML VIAL IV STA (18:26)
[2019-08-25 19:29] LABS: INR 1.1; PT Patient Result 11.4 SECS (9.8-11.9)
[2019-08-25 19:34] LABS: Basophils % 0.2 % (0.0-0.8); Eosinophils # 0.1 10*3/uL (0.0-0.87); Eosinophils % 0.4 % (0.00-10.9); Hematocrit 31.8 VOL% (35.7-47.0); Immature Granulocytes % 0.7 %; Immature Granulocytes Absolute 0.08 #; Lymphocytes # 1.7 10*3/uL (1.4-4.0); Mean Corpuscular HGB Conc 28.3 GM/DL (32-36); Mean Corpuscular Volume 81.5 FL (87-102); Mean Platelet Volume 9.8 FL (9.6-12.0); Monocytes % 5.7 % (1.7-12.7); Platelet Count 275 T/CUMM (130-400); Red Cell Distribution Width 17.9 % (9.3-17.3); White Blood Count 12.2 T/CUMM (4-12)
[2019-08-25 20:35] LABS: Calcium 8.3 MG/DL (8.5-10.1)
[2019-08-25 20:36] LABS: Alanine Aminotransferase 25 U/L (13-56); Albumin 3.4 G/DL (3.4-5.0); Alkaline Phosphatase 125 U/L (45-117); Aspartate Amino Transferase 33 U/L (0-37); Bilirubin,Total < 0.39 MG/DL (0.2-1.0); Blood Urea Nitrogen 13 MG/DL (7-18); Estimated Glom Filtration Rate 65 ML/MIN; Glucose 121 MG/DL (74-106); Total Protein 7.5 G/DL (6.4-8.3)
[2019-08-25 20:37] LABS: Ferritin 12.1 ng/ml (8-252); Osmolality,Calculated 277.5 MOS/KG (273-304)
[2019-08-25] MEDS ORDERED: GLUCAGON 1 MG VIAL IM PRN (21:37)
[2019-08-25] MEDS ORDERED: DEXTROSE 50% 25 GM/50 ML VIAL IV PRN (21:37)
[2019-08-25] MEDS ORDERED: guaiFENesin/DM ER 600-30 MG TABLET PO PRN (21:42)
[2019-08-25] MEDS ORDERED: NICOTINE 21 MG/24 HR PATCH TRANSDERM PRN (21:42)
[2019-08-25] MEDS ORDERED: ALUMINUM/MAGNES/SIMETH MAX STR 30 ML UDCUP PO PRN (21:42)
[2019-08-25] MEDS ORDERED: hydrALAZINE 20 MG/1 ML VIAL IV PRN (21:42)
[2019-08-25] MEDS ORDERED: diphenhydrAMINE CAP 25 MG CAPSULE PO PRN (21:42)
[2019-08-25] MEDS: cefTRIAXone 1,000 MG in SYRINGE 1 EACH IV SCH (22:24)
[2019-08-25] MEDS ORDERED: SODIUM CHLORIDE 0.9% 100 ML IV ONE (23:06)
[2019-08-26] MEDS: ACETAMINOPHEN 325 MG TABLET PO PRN ×2 (01:13→16:34)
[2019-08-26] MEDS: MORPHINE 4 MG/1 ML VIAL IV PRN (01:52)
[2019-08-26] MEDS: NITROGLYCERIN SL 0.4 MG TABLET SL PRN ×3 (04:12→04:50)
[2019-08-26] MEDS: ONDANSETRON 4 MG/2 ML VIAL IV PRN ×2 (04:50→16:35)
[2019-08-26] MEDS ORDERED: DEXTROSE 10% 250 ML BAG IV PRN (07:00)
[2019-08-26] MEDS: FUROSEMIDE 40 MG/4 ML VIAL IV SCH ×2 (08:37→16:35)
[2019-08-26] MEDS: ENOXAPARIN 40 MG/0.4 ML SYRINGE SUBCUT SCH (08:38)
[2019-08-26] MEDS ORDERED: FUROSEMIDE 20 MG/2 ML VIAL IV SCH (09:00)
[2019-08-26] MEDS ORDERED: LYSINE HCL 500 MG PO PRN (10:49)
[2019-08-26] MEDS ORDERED: ASPIRIN EC 81 MG TABLET PO SCH (11:00)
[2019-08-26] MEDS ORDERED: LOSARTAN 25 MG TABLET PO SCH (15:00)
[2019-08-26] MEDS ORDERED: RANOLAZINE 500 MG TABLET PO SCH (15:00)
[2019-08-26] MEDS: BISOPROLOL 5 MG TABLET PO SCH ×2 (16:33→20:35)
[2019-08-26] MEDS: GABAPENTIN 300 MG CAPSULE PO SCH ×2 (16:33→20:34)
[2019-08-26] MEDS: PRASUGREL 10 MG TABLET PO SCH (16:33)
[2019-08-26] MEDS: AMIODARONE 200 MG TABLET PO SCH (16:33)
[2019-08-26] MEDS: VENLAFAXINE XR 37.5 MG CAPSULE PO SCH (16:33)
[2019-08-26] MEDS: EZETIMIBE 10 MG TABLET PO SCH (16:34)
[2019-08-26] MEDS: ISOSORBIDE MONONITRATE 30 MG TABLET PO SCH (16:35)
[2019-08-26] MEDS: SACUBITRIL/VALSARTAN 49-51 MG TABLET PO SCH (20:35)
[2019-08-26] MEDS: RANOLAZINE 500 MG TABLET PO SCH (20:35)
[2019-08-26] MEDS: cefTRIAXone 1,000 MG in SYRINGE 1 EACH IV SCH (20:36)
[2019-08-27 07:31] LABS: Calcium 7.7 MG/DL (8.5-10.1); Osmolality,Calculated 279.4 MOS/KG (273-304)
[2019-08-27 07:35] LABS: Basophils % 0.3 % (0.0-0.8); Eosinophils # 0.1 10*3/uL (0.0-0.87); Hematocrit 27.1 VOL% (35.7-47.0); Immature Granulocytes % 0.4 %; Immature Granulocytes Absolute 0.03 #; Lymphocytes # 2.2 10*3/uL (1.4-4.0); Lymphocytes % 32.1 % (21.3-54.2); Mean Corpuscular HGB Conc 28.4 GM/DL (32-36); Mean Corpuscular Volume 81.6 FL (87-102); Mean Platelet Volume 10.5 FL (9.6-12.0); Monocytes % 8.5 % (1.7-12.7); NRBC # 0.02 10*3/uL; Neutrophils % 57.7 % (38.7-73.9); Platelet Count 211 T/CUMM (130-400); Red Blood Count 3.32 MC/CUMM (3.8-5.5); Red Cell Distribution Width 17.7 % (9.3-17.3); White Blood Count 6.7 T/CUMM (4-12)
[2019-08-27 07:40] LABS: Hemoglobin 7.7 GM/DL (12.0-16.0)
[2019-08-27 07:41] LABS: Anisocytosis 2+; Hypochromasia 3+; Microcytosis 1+; Poikilocytosis 2+
[2019-08-27 07:42] LABS: Elliptocytes Few; Macrocytosis Slight; Ovalocytes Few; Platelet Estimate Adequate; Polychromasia Few; Tear Drop Cells Slight
[2019-08-27] MEDS ORDERED: PITAVASTATIN CALCIUM 4 MG PO SCH (09:00)
[2019-08-27] MEDS: ISOSORBIDE MONONITRATE 30 MG TABLET PO SCH (09:06)
[2019-08-27] MEDS: BISOPROLOL 5 MG TABLET PO SCH ×2 (09:07→21:29)
[2019-08-27] MEDS: SACUBITRIL/VALSARTAN 49-51 MG TABLET PO SCH ×2 (09:08→20:20)
[2019-08-27] MEDS: CALCIUM (CARBONATE)/VITAMIN D 600 MG-400 UNIT TABLET PO SCH (09:09)
[2019-08-27] MEDS: PRASUGREL 10 MG TABLET PO SCH (09:10)
[2019-08-27] MEDS: COENZYME Q10 100 MG CAPSULE PO SCH (09:10)
[2019-08-27] MEDS: GABAPENTIN 300 MG CAPSULE PO SCH ×3 (09:10→20:20)
[2019-08-27] MEDS: DOCUSATE SODIUM 100 MG CAPSULE PO SCH (09:10)
[2019-08-27] MEDS: RANOLAZINE 500 MG TABLET PO SCH ×2 (09:10→20:20)
[2019-08-27] MEDS: EZETIMIBE 10 MG TABLET PO SCH (09:10)
[2019-08-27] MEDS: AMIODARONE 200 MG TABLET PO SCH (09:11)
[2019-08-27] MEDS: LEVOTHYROXINE 100 MCG TABLET PO SCH (09:11)
[2019-08-27] MEDS: VENLAFAXINE XR 37.5 MG CAPSULE PO SCH (09:11)
[2019-08-27] MEDS: PANTOPRAZOLE 40 MG TABLET PO SCH (09:11)
[2019-08-27] MEDS: ASPIRIN CHEW 81 MG TABLET PO SCH (09:14)
[2019-08-27] MEDS: ENOXAPARIN 40 MG/0.4 ML SYRINGE SUBCUT SCH (09:15)
[2019-08-27] MEDS ORDERED: FUROSEMIDE 40 MG TABLET PO SCH ×2 (09:45→16:00)
[2019-08-27] MEDS ORDERED: ERGOCALCIFEROL 50,000 UNIT CAPSULE PO SCH (10:49)
[2019-08-27] MEDS: FUROSEMIDE 40 MG/4 ML VIAL IV SCH (10:50)
[2019-08-27] MEDS ORDERED: POTASSIUM CHLORIDE 20 MEQ TABLET PO ONE (15:00)
[2019-08-27] MEDS: cefTRIAXone 1,000 MG in SYRINGE 1 EACH IV SCH (20:20)
[2019-08-28] MEDS: ACETAMINOPHEN 325 MG TABLET PO PRN ×2 (03:43→23:01)
[2019-08-28 06:44] LABS: Basophils % 0.2 % (0.0-0.8); Eosinophils # 0.2 10*3/uL (0.0-0.87); Eosinophils % 2.8 % (0.00-10.9); Hematocrit 28.4 VOL% (35.7-47.0); Hemoglobin 8.3 GM/DL (12.0-16.0); Immature Granulocytes % 0.3 %; Immature Granulocytes Absolute 0.03 #; Lymphocytes # 2.2 10*3/uL (1.4-4.0); Lymphocytes % 25.4 % (21.3-54.2); Mean Corpuscular HGB Conc 29.2 GM/DL (32-36); Mean Corpuscular Volume 80.2 FL (87-102); Mean Platelet Volume 10.3 FL (9.6-12.0); Neutrophils % 62.3 % (38.7-73.9); Platelet Count 228 T/CUMM (130-400); Red Blood Count 3.54 MC/CUMM (3.8-5.5); Red Cell Distribution Width 17.6 % (9.3-17.3); White Blood Count 8.7 T/CUMM (4-12)
[2019-08-28 06:47] LABS: Hypochromasia 2+; Microcytosis 1+; Polychromasia Slight
[2019-08-28 06:48] LABS: Anisocytosis 1+; Ovalocytes Slight; Platelet Estimate Normal
[2019-08-28 06:55] LABS: Calcium 7.9 MG/DL (8.5-10.1)
[2019-08-28] MEDS: FUROSEMIDE 40 MG/4 ML VIAL IV SCH (08:40)
[2019-08-28] MEDS: BISOPROLOL 5 MG TABLET PO SCH ×2 (08:41→20:48)
[2019-08-28] MEDS: SACUBITRIL/VALSARTAN 49-51 MG TABLET PO SCH ×2 (08:42→20:39)
[2019-08-28] MEDS: ISOSORBIDE MONONITRATE 30 MG TABLET PO SCH (08:42)
[2019-08-28] MEDS: AMIODARONE 200 MG TABLET PO SCH (08:44)
[2019-08-28] MEDS: VENLAFAXINE XR 37.5 MG CAPSULE PO SCH (08:44)
[2019-08-28] MEDS: CALCIUM (CARBONATE)/VITAMIN D 600 MG-400 UNIT TABLET PO SCH (08:44)
[2019-08-28] MEDS: ENOXAPARIN 40 MG/0.4 ML SYRINGE SUBCUT SCH (08:44)
[2019-08-28] MEDS: PANTOPRAZOLE 40 MG TABLET PO SCH (08:45)
[2019-08-28] MEDS: EZETIMIBE 10 MG TABLET PO SCH (08:45)
[2019-08-28] MEDS: ASPIRIN CHEW 81 MG TABLET PO SCH (08:45)
[2019-08-28] MEDS: LEVOTHYROXINE 100 MCG TABLET PO SCH (08:45)
[2019-08-28] MEDS: POTASSIUM CHLORIDE 20 MEQ TABLET PO SCH (08:45)
[2019-08-28] MEDS: DOCUSATE SODIUM 100 MG CAPSULE PO SCH (08:45)
[2019-08-28] MEDS: GABAPENTIN 300 MG CAPSULE PO SCH ×3 (08:45→20:39)
[2019-08-28] MEDS: RANOLAZINE 500 MG TABLET PO SCH ×2 (08:45→20:39)
[2019-08-28] MEDS: COENZYME Q10 100 MG CAPSULE PO SCH (08:45)
[2019-08-28] MEDS: PRASUGREL 10 MG TABLET PO SCH (08:46)
[2019-08-28] MEDS ORDERED: BISOPROLOL 5 MG TABLET PO ONE (17:44)
[2019-08-28] MEDS: cefTRIAXone 1,000 MG in SYRINGE 1 EACH IV SCH (20:38)
[2019-08-29] MEDS: MORPHINE 4 MG/1 ML VIAL IV PRN (01:52)
[2019-08-29 04:41] LABS: Basophils % 0.3 % (0.0-0.8); Eosinophils # 0.3 10*3/uL (0.0-0.87); Eosinophils % 5.3 % (0.00-10.9); Hematocrit 28.6 VOL% (35.7-47.0); Hemoglobin 8.2 GM/DL (12.0-16.0); Immature Granulocytes % 0.3 %; Immature Granulocytes Absolute 0.02 #; Lymphocytes % 33.7 % (21.3-54.2); Mean Corpuscular HGB Conc 28.7 GM/DL (32-36); Mean Corpuscular Volume 80.6 FL (87-102); Mean Platelet Volume 10.5 FL (9.6-12.0); Monocytes % 8.3 % (1.7-12.7); Neutrophils % 52.1 % (38.7-73.9); Platelet Count 224 T/CUMM (130-400); Red Blood Count 3.55 MC/CUMM (3.8-5.5); Red Cell Distribution Width 17.2 % (9.3-17.3)
[2019-08-29 05:15] LABS: Osmolality,Calculated 274.7 MOS/KG (273-304)
[2019-08-29 05:41] LABS: Anisocytosis 1+; Hypochromasia 1+; Microcytosis 1+; Ovalocytes Few
[2019-08-29 05:42] LABS: Platelet Estimate Normal
[2019-08-29] MEDS ORDERED: BISOPROLOL 5 MG TABLET PO SCH (09:00)
[2019-08-29] MEDS: ENOXAPARIN 40 MG/0.4 ML SYRINGE SUBCUT SCH (09:33)
[2019-08-29] MEDS: ISOSORBIDE MONONITRATE 30 MG TABLET PO SCH (09:33)
[2019-08-29] MEDS: VENLAFAXINE XR 37.5 MG CAPSULE PO SCH (09:33)
[2019-08-29] MEDS: GABAPENTIN 300 MG CAPSULE PO SCH ×3 (09:33→20:13)
[2019-08-29] MEDS: PANTOPRAZOLE 40 MG TABLET PO SCH (09:33)
[2019-08-29] MEDS: PRASUGREL 10 MG TABLET PO SCH (09:33)
[2019-08-29] MEDS: POTASSIUM CHLORIDE 20 MEQ TABLET PO SCH (09:33)
[2019-08-29] MEDS: FUROSEMIDE 40 MG/4 ML VIAL IV SCH (09:33)
[2019-08-29] MEDS: COENZYME Q10 100 MG CAPSULE PO SCH (09:33)
[2019-08-29] MEDS: AMIODARONE 200 MG TABLET PO SCH (09:33)
[2019-08-29] MEDS: RANOLAZINE 500 MG TABLET PO SCH ×2 (09:33→20:12)
[2019-08-29] MEDS: SACUBITRIL/VALSARTAN 49-51 MG TABLET PO SCH ×2 (09:33→20:13)
[2019-08-29] MEDS: EZETIMIBE 10 MG TABLET PO SCH (09:33)
[2019-08-29] MEDS: ASPIRIN CHEW 81 MG TABLET PO SCH (09:33)
[2019-08-29] MEDS: DOCUSATE SODIUM 100 MG CAPSULE PO SCH (09:33)
[2019-08-29] MEDS: CALCIUM (CARBONATE)/VITAMIN D 600 MG-400 UNIT TABLET PO SCH (09:33)
[2019-08-29] MEDS: LEVOTHYROXINE 100 MCG TABLET PO SCH (09:33)
[2019-08-29] MEDS: BISOPROLOL 5 MG TABLET PO SCH ×2 (11:16→20:13)
[2019-08-29] MEDS: cefTRIAXone 1,000 MG in SYRINGE 1 EACH IV SCH (20:12)
[2019-08-29] MEDS: ACETAMINOPHEN 325 MG TABLET PO PRN (20:48)
[2019-08-30] MEDS: ACETAMINOPHEN 325 MG TABLET PO PRN ×2 (03:53→22:00)
[2019-08-30 04:50] LABS: Basophils % 0.3 % (0.0-0.8); Eosinophils # 0.3 10*3/uL (0.0-0.87); Eosinophils % 4.9 % (0.00-10.9); Hematocrit 31.1 VOL% (35.7-47.0); Hemoglobin 9.1 GM/DL (12.0-16.0); Immature Granulocytes % 0.4 %; Immature Granulocytes Absolute 0.03 #; Lymphocytes # 2.5 10*3/uL (1.4-4.0); Lymphocytes % 37.7 % (21.3-54.2); Mean Corpuscular HGB Conc 29.3 GM/DL (32-36); Mean Corpuscular Volume 79.9 FL (87-102); Mean Platelet Volume 10.6 FL (9.6-12.0); Monocytes % 10.2 % (1.7-12.7); Neutrophils % 46.5 % (38.7-73.9); Platelet Count 221 T/CUMM (130-400); Red Blood Count 3.89 MC/CUMM (3.8-5.5); Red Cell Distribution Width 17.2 % (9.3-17.3); White Blood Count 6.7 T/CUMM (4-12)
[2019-08-30 04:54] LABS: Calcium 9.1 MG/DL (8.5-10.1)
[2019-08-30 05:41] LABS: Anisocytosis 1+; Hypochromasia 1+; Microcytosis 1+
[2019-08-30 05:42] LABS: Ovalocytes Slight; Platelet Estimate Normal; Polychromasia Slight; Target Cells Slight
[2019-08-30] MEDS: GABAPENTIN 300 MG CAPSULE PO SCH ×3 (08:50→20:05)
[2019-08-30] MEDS: LEVOTHYROXINE 100 MCG TABLET PO SCH (08:50)
[2019-08-30] MEDS: PANTOPRAZOLE 40 MG TABLET PO SCH (08:50)
[2019-08-30] MEDS: CALCIUM (CARBONATE)/VITAMIN D 600 MG-400 UNIT TABLET PO SCH (08:51)
[2019-08-30] MEDS: AMIODARONE 200 MG TABLET PO SCH (08:51)
[2019-08-30] MEDS: ASPIRIN CHEW 81 MG TABLET PO SCH (08:51)
[2019-08-30] MEDS: POTASSIUM CHLORIDE 20 MEQ TABLET PO SCH (08:51)
[2019-08-30] MEDS: RANOLAZINE 500 MG TABLET PO SCH ×2 (08:51→20:05)
[2019-08-30] MEDS: DOCUSATE SODIUM 100 MG CAPSULE PO SCH (08:51)
[2019-08-30] MEDS: BISOPROLOL 5 MG TABLET PO SCH ×2 (08:52→20:05)
[2019-08-30] MEDS: SACUBITRIL/VALSARTAN 49-51 MG TABLET PO SCH ×2 (08:52→20:05)
[2019-08-30] MEDS: EZETIMIBE 10 MG TABLET PO SCH (08:52)
[2019-08-30] MEDS: COENZYME Q10 100 MG CAPSULE PO SCH (08:52)
[2019-08-30] MEDS: ISOSORBIDE MONONITRATE 30 MG TABLET PO SCH (08:52)
[2019-08-30] MEDS: VENLAFAXINE XR 37.5 MG CAPSULE PO SCH (08:52)
[2019-08-30] MEDS: PRASUGREL 10 MG TABLET PO SCH (08:53)
[2019-08-30] MEDS ORDERED: POTASSIUM CHLORIDE RIDER 10 MEQ in PREMIX 1 EACH IV PRN (10:45)
[2019-08-30] MEDS ORDERED: MAGNESIUM SULF RIDER 2 GM in PREMIX 1 EACH IV PRN (10:45)
[2019-08-30] MEDS ORDERED: FUROSEMIDE 40 MG/4 ML VIAL IV SCH (11:37)
[2019-08-30] MEDS: FUROSEMIDE 40 MG/4 ML VIAL IV SCH (12:02)
[2019-08-30] MEDS: ENOXAPARIN 40 MG/0.4 ML SYRINGE SUBCUT SCH (12:02)
[2019-08-31] MEDS: MORPHINE 4 MG/1 ML VIAL IV PRN ×2 (02:38→20:48)
[2019-08-31 06:12] LABS: Basophils % 0.3 % (0.0-0.8); Eosinophils # 0.3 10*3/uL (0.0-0.87); Eosinophils % 3.9 % (0.00-10.9); Hematocrit 32.7 VOL% (35.7-47.0); Immature Granulocytes % 0.3 %; Immature Granulocytes Absolute 0.02 #; Lymphocytes # 2.4 10*3/uL (1.4-4.0); Mean Corpuscular HGB Conc 28.7 GM/DL (32-36); Mean Platelet Volume 10.7 FL (9.6-12.0); Neutrophils % 52.5 % (38.7-73.9); Platelet Count 262 T/CUMM (130-400); Red Blood Count 4.09 MC/CUMM (3.8-5.5); Red Cell Distribution Width 17.2 % (9.3-17.3)
[2019-08-31 06:14] LABS: Hemoglobin 9.4 GM/DL (12.0-16.0)
[2019-08-31 06:15] LABS: Hypochromasia 1+; Platelet Estimate Adequate
[2019-08-31 06:16] LABS: Microcytosis 1+
[2019-08-31] MEDS: ISOSORBIDE MONONITRATE 30 MG TABLET PO SCH (09:44)
[2019-08-31] MEDS: PRASUGREL 10 MG TABLET PO SCH (09:44)
[2019-08-31] MEDS: COENZYME Q10 100 MG CAPSULE PO SCH (09:44)
[2019-08-31] MEDS: AMIODARONE 200 MG TABLET PO SCH (09:44)
[2019-08-31] MEDS: RANOLAZINE 500 MG TABLET PO SCH ×2 (09:45→21:18)
[2019-08-31] MEDS: PANTOPRAZOLE 40 MG TABLET PO SCH (09:45)
[2019-08-31] MEDS: CALCIUM (CARBONATE)/VITAMIN D 600 MG-400 UNIT TABLET PO SCH (09:45)
[2019-08-31] MEDS: VENLAFAXINE XR 37.5 MG CAPSULE PO SCH (09:45)
[2019-08-31] MEDS: ASPIRIN CHEW 81 MG TABLET PO SCH (09:45)
[2019-08-31] MEDS: EZETIMIBE 10 MG TABLET PO SCH (09:45)
[2019-08-31] MEDS: SACUBITRIL/VALSARTAN 49-51 MG TABLET PO SCH ×2 (09:46→21:15)
[2019-08-31] MEDS: FUROSEMIDE 40 MG TABLET PO SCH (09:46)
[2019-08-31] MEDS: BISOPROLOL 5 MG TABLET PO SCH ×2 (09:46→21:18)
[2019-08-31] MEDS: LEVOTHYROXINE 100 MCG TABLET PO SCH (09:46)
[2019-08-31] MEDS: ENOXAPARIN 40 MG/0.4 ML SYRINGE SUBCUT SCH ×2 (09:46→09:47)
[2019-08-31] MEDS: GABAPENTIN 300 MG CAPSULE PO SCH ×3 (09:46→21:18)
[2019-08-31] MEDS: DOCUSATE SODIUM 100 MG CAPSULE PO SCH (09:46)
[2019-08-31] MEDS: POTASSIUM CHLORIDE 20 MEQ TABLET PO SCH (09:47)
[2019-08-31] MEDS ORDERED: diphenhydrAMINE CAP 25 MG CAPSULE PO ONE (12:00)
[2019-08-31] MEDS ORDERED: DIAZEPAM 5 MG TABLET PO ONE (12:00)
[2019-08-31] MEDS ORDERED: LIDOCAINE 1% 20 ML VIAL ONE (13:28)
[2019-08-31] MEDS ORDERED: HYDROmorphone 2 MG/1 ML VIAL ONE (14:06)
[2019-08-31] MEDS ORDERED: MIDAZOLAM 2 MG/2 ML VIAL ONE (14:06)
[2019-08-31] MEDS ORDERED: ENOXAPARIN 30 MG/0.3 ML SYRINGE ONE (14:33)
[2019-08-31] MEDS ORDERED: ENOXAPARIN 60 MG/0.6 ML SYRINGE ONE (14:33)
[2019-08-31] MEDS ORDERED: TIROFIBAN 5,000 MCG/100 ML PREMIX IV SCH (15:00)
[2019-08-31] MEDS ORDERED: TIROFIBAN 5,000 MCG/100 ML PREMIX IV ONE (15:03)
[2019-08-31 18:11] LABS: Troponin I 0.242 NG/ML (0.00-0.045)
[2019-09-01] MEDS: MORPHINE 4 MG/1 ML VIAL IV PRN (04:53)
[2019-09-01 06:41] LABS: Basophils % 0.3 % (0.0-0.8); Eosinophils # 0.2 10*3/uL (0.0-0.87); Eosinophils % 2.5 % (0.00-10.9); Hematocrit 33.3 VOL% (35.7-47.0); Immature Granulocytes % 0.5 %; Immature Granulocytes Absolute 0.04 #; Lymphocytes # 1.8 10*3/uL (1.4-4.0); Lymphocytes % 23.9 % (21.3-54.2); Mean Corpuscular HGB Conc 28.5 GM/DL (32-36); Mean Corpuscular Volume 81.2 FL (87-102); Mean Platelet Volume 10.2 FL (9.6-12.0); Monocytes % 9.4 % (1.7-12.7); Neutrophils % 63.4 % (38.7-73.9); Platelet Count 240 T/CUMM (130-400); Red Cell Distribution Width 17.3 % (9.3-17.3); White Blood Count 7.6 T/CUMM (4-12)
[2019-09-01 06:42] LABS: Hemoglobin 9.5 GM/DL (12.0-16.0); Hypochromasia 1+; Ovalocytes Slight; Platelet Estimate Adequate
[2019-09-01 06:43] LABS: Microcytosis 1+
[2019-09-01 06:56] LABS: Blood Urea Nitrogen 18 MG/DL (7-18); Calcium 7.9 MG/DL (8.5-10.1); Estimated Glom Filtration Rate 68 ML/MIN; Glucose 94 MG/DL (74-106); Osmolality,Calculated 271.1 MOS/KG (273-304)
[2019-09-01 06:57] LABS: Troponin I 0.185 NG/ML (0.00-0.045)
[2019-09-01] MEDS: RANOLAZINE 500 MG TABLET PO SCH (09:22)
[2019-09-01] MEDS: POTASSIUM CHLORIDE 20 MEQ TABLET PO SCH (09:22)
[2019-09-01] MEDS: BISOPROLOL 5 MG TABLET PO SCH (09:22)
[2019-09-01] MEDS: VENLAFAXINE XR 37.5 MG CAPSULE PO SCH (09:22)
[2019-09-01] MEDS: COENZYME Q10 100 MG CAPSULE PO SCH (09:23)
[2019-09-01] MEDS: DOCUSATE SODIUM 100 MG CAPSULE PO SCH (09:23)
[2019-09-01] MEDS: PRASUGREL 10 MG TABLET PO SCH (09:23)
[2019-09-01] MEDS: SACUBITRIL/VALSARTAN 49-51 MG TABLET PO SCH (09:23)
[2019-09-01] MEDS: CALCIUM (CARBONATE)/VITAMIN D 600 MG-400 UNIT TABLET PO SCH (09:23)
[2019-09-01] MEDS: ISOSORBIDE MONONITRATE 30 MG TABLET PO SCH (09:23)
[2019-09-01] MEDS: GABAPENTIN 300 MG CAPSULE PO SCH (09:23)
[2019-09-01] MEDS: EZETIMIBE 10 MG TABLET PO SCH (09:23)
[2019-09-01] MEDS: ENOXAPARIN 40 MG/0.4 ML SYRINGE SUBCUT SCH (09:24)
[2019-09-01] MEDS: ASPIRIN CHEW 81 MG TABLET PO SCH (09:24)
[2019-09-01] MEDS: FUROSEMIDE 40 MG TABLET PO SCH (09:24)
[2019-09-01] MEDS: PANTOPRAZOLE 40 MG TABLET PO SCH (09:24)
[2019-09-01] MEDS: AMIODARONE 200 MG TABLET PO SCH (09:24)
[2019-09-01] MEDS: LEVOTHYROXINE 100 MCG TABLET PO SCH (09:30)
[2019-09-01 09:46] LABS: Osmolality,Calculated 274.8 MOS/KG (273-304)
[2019-09-01 09:59] VITALS: BP 105/40
== END 2019-09-01 12:20 | disposition home or self-care (01) | DRG 246 ==
LOC: EDUNIT# → EDBD → N.ED 17:25 → SUATTDRO 22:23 → N.EDINP 22:23 → N.2W 23:41 → N.TELEN 08-31 08:13
PROVIDERS: ADMIT Internal Medicine; ATTEND Internal Medicine

== ENCOUNTER 2019-09-10 21:33 | Observation (INO) ==
[2019-09-10 22:47] LABS: PT Patient Result 10.9 SECS (9.8-11.9); Partial Thromboplastin Time 24.7 SECS (23.9-33.8)
[2019-09-10 22:58] LABS: Alanine Aminotransferase 19 U/L (13-56); Albumin 3.2 G/DL (3.4-5.0); Alkaline Phosphatase 117 U/L (45-117); Aspartate Amino Transferase 21 U/L (0-37); Bilirubin,Total < 0.39 MG/DL (0.2-1.0); Blood Urea Nitrogen 18 MG/DL (7-18); Calcium 8.6 MG/DL (8.5-10.1); Estimated Glom Filtration Rate 52 ML/MIN; Glucose 128 MG/DL (74-106); Osmolality,Calculated 278.7 MOS/KG (273-304); Total Protein 7.2 G/DL (6.4-8.3)
[2019-09-10 23:00] LABS: Basophils % 0.4 % (0.0-0.8); Eosinophils # 0.1 10*3/uL (0.0-0.87); Eosinophils % 0.6 % (0.00-10.9); Immature Granulocytes % 0.6 %; Immature Granulocytes Absolute 0.05 #; Lymphocytes # 2.5 10*3/uL (1.4-4.0); Lymphocytes % 32.1 % (21.3-54.2); Mean Corpuscular HGB Conc 27.6 GM/DL (32-36); Mean Corpuscular Volume 82.2 FL (87-102); Mean Platelet Volume 9.7 FL (9.6-12.0); Monocytes % 6.3 % (1.7-12.7); Platelet Count 354 T/CUMM (130-400); Red Blood Count 3.53 MC/CUMM (3.8-5.5); White Blood Count 7.8 T/CUMM (4-12)
[2019-09-10] MEDS ORDERED: FUROSEMIDE 40 MG/4 ML VIAL IV STA (23:33)
[2019-09-10] MEDS ORDERED: ASPIRIN CHEW 81 MG TABLET PO STA (23:33)
[2019-09-11] MEDS ORDERED: ONDANSETRON 4 MG/2 ML VIAL IV PRN (01:53)
[2019-09-11] MEDS ORDERED: MORPHINE 4 MG/1 ML VIAL IV PRN (01:53)
[2019-09-11] MEDS ORDERED: GLUCAGON 1 MG VIAL IM PRN (01:53)
[2019-09-11] MEDS ORDERED: DEXTROSE 10% 250 ML BAG IV PRN (02:05)
[2019-09-11 08:16] LABS: Basophils % 0.3 % (0.0-0.8); Eosinophils % 0.4 % (0.00-10.9); Hemoglobin 8.1 GM/DL (12.0-16.0); Immature Granulocytes % 0.4 %; Immature Granulocytes Absolute 0.03 #; Lymphocytes % 41.7 % (21.3-54.2); Mean Corpuscular HGB Conc 28.9 GM/DL (32-36); Mean Corpuscular Volume 79.1 FL (87-102); Mean Platelet Volume 9.2 FL (9.6-12.0); Neutrophils % 50.2 % (38.7-73.9); Platelet Count 325 T/CUMM (130-400); Red Blood Count 3.54 MC/CUMM (3.8-5.5); Red Cell Distribution Width 17.9 % (9.3-17.3); White Blood Count 7.3 T/CUMM (4-12)
[2019-09-11 08:49] LABS: Troponin I 0.347 NG/ML (0.00-0.045)
[2019-09-11 08:55] LABS: Risk Ratio 2.28; Thyroid Stimulating Hormone 5.44 uIU/ml (0.358-3.74); VLDL CHOLESTEROL 28.4 MG/DL
[2019-09-11] MEDS ORDERED: FUROSEMIDE 20 MG/2 ML VIAL IV SCH (09:00)
[2019-09-11] MEDS: ENOXAPARIN 40 MG/0.4 ML SYRINGE SUBCUT SCH (09:38)
[2019-09-11] MEDS: BISOPROLOL 5 MG TABLET PO SCH ×2 (14:56→21:05)
[2019-09-11] MEDS: EZETIMIBE 10 MG TABLET PO SCH (14:57)
[2019-09-11] MEDS: PRASUGREL 10 MG TABLET PO SCH (14:57)
[2019-09-11] MEDS: SACUBITRIL/VALSARTAN 49-51 MG TABLET PO SCH ×2 (14:57→21:05)
[2019-09-11] MEDS: ASPIRIN CHEW 81 MG TABLET PO SCH (14:57)
[2019-09-11] MEDS: ISOSORBIDE MONONITRATE 30 MG TABLET PO SCH (14:58)
[2019-09-11] MEDS: COENZYME Q10 100 MG CAPSULE PO SCH (14:58)
[2019-09-11 15:13] LABS: Troponin I 0.306 NG/ML (0.00-0.045)
[2019-09-11] MEDS ORDERED: FUROSEMIDE 40 MG/4 ML VIAL IV SCH (16:00)
[2019-09-11] MEDS: BUMETANIDE 1 MG/4 ML VIAL IV SCH (17:01)
[2019-09-11 17:48] LABS: Apearance,Urine CLEAR (Clear); Bacteria,Urine Occasional /HPF (Few); Bilirubin,Urine Negative (Negative); Blood, Urine Negative (Negative); Glucose,Urine (UA) Negative (Negative); Hyaline Casts,Urine 5 /LPF (0-3); Ketones,Urine Negative (Negative); Mucus,Urine Moderate /LPF (Occasional); Nitrite,Urine Positive (Negative); Protein,Urine Negative; RBC,Urine 3 /HPF (0-4); Squamous Epithelial Cell,Urine Occasional /HPF (0-10); Urine Color Yellow (Yellow); Urine Specific Gravity 1.011 (1.001-1.035); Urine Urobilinogen < 2.0 EU/DL (0.2-1.0); WBC,Urine 35 /HPF (0-6)
[2019-09-11 18:05] LABS: Troponin I 0.253 NG/ML (0.00-0.045)
[2019-09-11 20:55] LABS: Troponin I 0.206 NG/ML (0.00-0.045)
[2019-09-11] MEDS: RANOLAZINE 500 MG TABLET PO SCH (21:05)
[2019-09-12 06:17] LABS: Basophils % 0.5 % (0.0-0.8); Eosinophils # 0.1 10*3/uL (0.0-0.87); Eosinophils % 1.3 % (0.00-10.9); Hematocrit 30.5 VOL% (35.7-47.0); Hemoglobin 8.9 GM/DL (12.0-16.0); Immature Granulocytes % 0.3 %; Immature Granulocytes Absolute 0.02 #; Lymphocytes # 2.7 10*3/uL (1.4-4.0); Lymphocytes % 42.5 % (21.3-54.2); Mean Corpuscular HGB Conc 29.2 GM/DL (32-36); Mean Corpuscular Volume 78.2 FL (87-102); Mean Platelet Volume 9.2 FL (9.6-12.0); Monocytes % 7.1 % (1.7-12.7); Neutrophils % 48.3 % (38.7-73.9); Platelet Count 320 T/CUMM (130-400); White Blood Count 6.4 T/CUMM (4-12)
[2019-09-12 06:55] LABS: Calcium 8.2 MG/DL (8.5-10.1)
[2019-09-12] MEDS ORDERED: POTASSIUM CHLORIDE 20 MEQ TABLET PO PRN (07:11)
[2019-09-12] MEDS ORDERED: cefTRIAXone 1,000 MG in SYRINGE 1 EACH IV SCH (08:00)
[2019-09-12] MEDS ORDERED: SPIRONOLACTONE 25 MG TABLET PO SCH (09:00)
[2019-09-12] MEDS ORDERED: ROSUVASTATIN 10 MG TABLET PO SCH (09:00)
[2019-09-12] MEDS ORDERED: cilostazoL 50 MG TABLET PO SCH (09:00)
[2019-09-12] MEDS: BISOPROLOL 5 MG TABLET PO SCH (09:09)
[2019-09-12] MEDS: RANOLAZINE 500 MG TABLET PO SCH (09:09)
[2019-09-12] MEDS: ISOSORBIDE MONONITRATE 30 MG TABLET PO SCH (09:10)
[2019-09-12] MEDS: SACUBITRIL/VALSARTAN 49-51 MG TABLET PO SCH (09:11)
[2019-09-12] MEDS: PRASUGREL 10 MG TABLET PO SCH (09:11)
[2019-09-12] MEDS: ASPIRIN CHEW 81 MG TABLET PO SCH (09:11)
[2019-09-12] MEDS: EZETIMIBE 10 MG TABLET PO SCH (09:11)
[2019-09-12] MEDS: COENZYME Q10 100 MG CAPSULE PO SCH (09:11)
[2019-09-12] MEDS: ENOXAPARIN 40 MG/0.4 ML SYRINGE SUBCUT SCH (09:12)
[2019-09-12] MEDS: BUMETANIDE 1 MG/4 ML VIAL IV SCH (09:12)
[2019-09-12] MEDS ORDERED: POTASSIUM CHLORIDE 20 MEQ TABLET PO ONE (10:00)
[2019-09-12] MEDS ORDERED: MAGNESIUM SULF RIDER 2 GM in PREMIX 1 EACH IV ONE (10:06)
[2019-09-12 15:36] VITALS: BP 97/55
[2019-09-12] MEDS ORDERED: BUMETANIDE 1 MG TABLET PO SCH (16:00)
[2019-09-12] MEDS ORDERED: RANOLAZINE 500 MG TABLET PO SCH (21:00)
[2019-09-13] MEDS ORDERED: LEVOTHYROXINE 100 MCG TABLET PO SCH (06:30)
== END 2019-09-12 17:01 | disposition home or self-care (01) ==
LOC: N.EDINP 21:33 → N.ED 21:33 → N.TELES 09-11 02:18 → SUATTDRO 09-11 14:47
PROVIDERS: ADMIT Internal Medicine; ATTEND Family Medicine

== ENCOUNTER 2019-10-19 01:08 | Inpatient (IN) ==
[2019-10-19 01:18] LABS: ABG Base Excess -13.3 MMOL/L (-2.5-2.5); ABG HCO3 14.1 MMOL/L (20-26); ABG Oxygen Saturation 99.4 % (95-100); ABG PCO2 48.2 MM HG (35-48); ABG TCO2 15.1 MMOL/L (23-27)
[2019-10-19] MEDS ORDERED: FUROSEMIDE 20 MG/2 ML VIAL IV STA (01:18)
[2019-10-19] MEDS ORDERED: methylPREDNISolone SOD SUC 125 MG/2 ML VIAL IV STA (01:18)
[2019-10-19] MEDS ORDERED: FUROSEMIDE 20 MG/2 ML VIAL ONE (01:19)
[2019-10-19] MEDS ORDERED: methylPREDNISolone SOD SUC 125 MG/2 ML VIAL ONE (01:19)
[2019-10-19] MEDS ORDERED: ETOMIDATE 20 MG/10 ML VIAL IV ONE (01:28)
[2019-10-19] MEDS ORDERED: ROCURONIUM 100 MG/10 ML VIAL IV ONE (01:29)
[2019-10-19 01:34] LABS: ABG PH 7.122 (7.35-7.45)
[2019-10-19] MEDS ORDERED: ETOMIDATE 20 MG/10 ML VIAL IV STA (01:39)
[2019-10-19] MEDS ORDERED: ROCURONIUM 100 MG/10 ML VIAL IV STA (01:40)
[2019-10-19 01:46] LABS: INR 1.1; PT Patient Result 11.3 SECS (9.8-11.9); Partial Thromboplastin Time 23.7 SECS (23.9-33.8)
[2019-10-19] MEDS ORDERED: PIPERACILLIN/TAZOBACTAM 3,375 MG in SODIUM CHLORIDE 0.9% 100 ML IV STA (01:46)
[2019-10-19 01:50] LABS: Albumin 3.6 G/DL (3.4-5.0); Bilirubin,Total 0.4 MG/DL (0.2-1.0); Calcium 8.1 MG/DL (8.5-10.1); Osmolality,Calculated 282.8 MOS/KG (273-304); Total Protein 7.6 G/DL (6.4-8.3)
[2019-10-19 01:51] LABS: Troponin I 0.04 NG/ML (0.00-0.045)
[2019-10-19] MEDS ORDERED: SODIUM CHLORIDE 0.9% 500 ML IV STA (01:54)
[2019-10-19] MEDS ORDERED: POTASSIUM CHLORIDE RIDER 20 MEQ in PREMIX 1 EACH IV STA (01:58)
[2019-10-19 01:59] LABS: Basophils # 0.1 10*3/uL (0.0-0.2); Basophils % 0.3 % (0.0-0.8); Eosinophils # 0.1 10*3/uL (0.0-0.87); Eosinophils % 0.6 % (0.00-10.9); Hematocrit 35.4 VOL% (35.7-47.0); Hemoglobin 9.6 GM/DL (12.0-16.0); Immature Granulocytes % 0.5 %; Immature Granulocytes Absolute 0.08 #; Lymphocytes # 7.6 10*3/uL (1.4-4.0); Lymphocytes % 48.6 % (21.3-54.2); Mean Corpuscular HGB Conc 27.1 GM/DL (32-36); Mean Corpuscular Volume 81.6 FL (87-102); Mean Platelet Volume 10.5 FL (9.6-12.0); Monocytes % 7.2 % (1.7-12.7); Neutrophils % 42.8 % (38.7-73.9); Platelet Count 307 T/CUMM (130-400); Red Blood Count 4.34 MC/CUMM (3.8-5.5); Red Cell Distribution Width 20.3 % (9.3-17.3); White Blood Count 15.7 T/CUMM (4-12)
[2019-10-19 02:06] LABS: Eosinophils 1 % (0-10); Lymphocytes 45 % (20-55); Segmented Neutrophils 44 % (50-85); Total Cells Counted 100
[2019-10-19 02:11] LABS: Hypochromasia 1+; Microcytosis 2+; Ovalocytes Few
[2019-10-19 02:12] LABS: Polychromasia Few
[2019-10-19 02:13] LABS: Stomatocytes Slight
[2019-10-19 02:14] LABS: Platelet Estimate Normal
[2019-10-19] MEDS: POTASSIUM CHLORIDE RIDER 10 MEQ in PREMIX 1 EACH IV SCH ×2 (02:24→03:24)
[2019-10-19] MEDS ORDERED: hydrALAZINE 20 MG/1 ML VIAL IV PRN (03:05)
[2019-10-19] MEDS ORDERED: GLUCAGON 1 MG VIAL IM PRN (03:24)
[2019-10-19] MEDS ORDERED: POTASSIUM CHLORIDE 20 MEQ/15 ML UDCUP PER TUBE PRN (03:24)
[2019-10-19] MEDS ORDERED: MAGNESIUM SULF RIDER 2 GM in PREMIX 1 EACH IV PRN (03:24)
[2019-10-19] MEDS ORDERED: MAGNESIUM SULF RIDER 4 GM in PREMIX 1 EACH IV PRN (03:24)
[2019-10-19] MEDS ORDERED: DEXTROSE 50% 25 GM/50 ML VIAL IV PRN (03:24)
[2019-10-19 03:44] LABS: ABG Base Excess -6.5 MMOL/L (-2.5-2.5); ABG Oxygen Saturation 94.1 % (95-100); ABG PCO2 51.7 MM HG (35-48); ABG PH 7.224 (7.35-7.45); ABG PO2 87.7 MM HG (80-95); Allen Test Positive; Pt O2 Delivery Device Ventilator
[2019-10-19] MEDS: LACTATED RINGERS 1,000 ML IV SCH ×2 (04:35→14:56)
[2019-10-19] MEDS: LEVOFLOXACIN INJ 750 MG in PREMIX 1 EACH IV SCH (04:52)
[2019-10-19] MEDS: INSULIN LISPRO 100 UNIT/ML SUBCUT SCH ×3 (06:24→17:27)
[2019-10-19 06:38] LABS: INR 1.1; PT Patient Result 11.6 SECS (9.8-11.9)
[2019-10-19 06:52] LABS: Albumin 3.2 G/DL (3.4-5.0); Bilirubin,Total 1.3 MG/DL (0.2-1.0); Calcium 7.2 MG/DL (8.5-10.1); Osmolality,Calculated 287.5 MOS/KG (273-304); Total Protein 6.9 G/DL (6.4-8.3)
[2019-10-19 07:23] LABS: Basophils % 0.1 % (0.0-0.8); Immature Granulocytes % 0.8 %; Immature Granulocytes Absolute 0.12 #; Lymphocytes # 0.5 10*3/uL (1.4-4.0); Lymphocytes % 3.1 % (21.3-54.2); Mean Corpuscular HGB Conc 28.5 GM/DL (32-36); Mean Corpuscular Volume 78.2 FL (87-102); Monocytes % 3.5 % (1.7-12.7); Neutrophils % 92.5 % (38.7-73.9); Platelet Count 226 T/CUMM (130-400); Red Blood Count 4.22 MC/CUMM (3.8-5.5); Red Cell Distribution Width 19.9 % (9.3-17.3); White Blood Count 14.6 T/CUMM (4-12)
[2019-10-19 07:24] LABS: Hemoglobin 9.4 GM/DL (12.0-16.0)
[2019-10-19 07:36] LABS: Hypochromasia 1+; Lymphocytes 1 % (20-55); Platelet Estimate Adequate; Segmented Neutrophils 94 % (50-85); Total Cells Counted 100
[2019-10-19 07:37] LABS: Microcytosis 1+
[2019-10-19] MEDS: LEVOTHYROXINE 100 MCG TABLET PO SCH (08:06)
[2019-10-19 08:15] LABS: Ferritin 23.7 ng/ml (8-252)
[2019-10-19] MEDS: ALBUTEROL/IPRATROPIUM 3 ML NEB RESP TX SCH ×3 (08:35→19:23)
[2019-10-19] MEDS: RANOLAZINE 500 MG TABLET PO SCH ×2 (10:42→21:11)
[2019-10-19] MEDS: EZETIMIBE 10 MG TABLET PO SCH (10:43)
[2019-10-19] MEDS: ASPIRIN CHEW 81 MG TABLET PO SCH (10:44)
[2019-10-19] MEDS: VENLAFAXINE XR 37.5 MG CAPSULE PO SCH (10:44)
[2019-10-19] MEDS: ISOSORBIDE MONONITRATE 30 MG TABLET PO SCH (10:45)
[2019-10-19] MEDS: PRASUGREL 10 MG TABLET PO SCH (10:49)
[2019-10-19] MEDS: ENOXAPARIN 40 MG/0.4 ML SYRINGE SUBCUT SCH (10:52)
[2019-10-19] MEDS: PANTOPRAZOLE 40 MG VIAL IV SCH (10:53)
[2019-10-19 10:57] LABS: ABG Base Excess 1.2 MMOL/L (-2.5-2.5); ABG HCO3 25.6 MMOL/L (20-26); ABG Oxygen Saturation 99.2 % (95-100); ABG PCO2 40.6 MM HG (35-48); ABG PH 7.412 (7.35-7.45); Pt O2 Delivery Device Ventilator
[2019-10-19 11:19] LABS: Apearance,Urine CLEAR (Clear); Bilirubin,Urine Negative (Negative); Blood, Urine Small mg/dL (Negative); Glucose,Urine (UA) Negative (Negative); Ketones,Urine Negative (Negative); Mucus,Urine Occasional /LPF (Occasional); Nitrite,Urine Negative (Negative); Protein,Urine Negative; RBC,Urine 5 /HPF (0-4); Urine Color Yellow (Yellow); Urine Specific Gravity 1.009 (1.001-1.035); Urine Urobilinogen < 2.0 EU/DL (0.2-1.0); WBC,Urine 7 /HPF (0-6)
[2019-10-19 11:59] LABS: CKMB % 6.6 %
[2019-10-19] MEDS ORDERED: TIROFIBAN 0 MCG in PREMIX 1 EACH IV ONE (13:29)
[2019-10-19] MEDS ORDERED: TIROFIBAN IV ONE (13:57)
[2019-10-19] MEDS ORDERED: ENOXAPARIN 100 MG/ML SYRINGE SUBCUT ONE (14:00)
[2019-10-19] MEDS: TIROFIBAN 5,000 MCG/100 ML PREMIX IV SCH ×2 (14:18→19:10)
[2019-10-19 14:26] LABS: CKMB % 6.4 %
[2019-10-19 14:44] LABS: Troponin I 12.4 NG/ML (0.00-0.045)
[2019-10-19 18:18] LABS: CKMB % 5.5 %
[2019-10-19 18:28] LABS: Troponin I 10.1 NG/ML (0.00-0.045)
[2019-10-19] MEDS: LORazepam 2 MG/1 ML VIAL IV PRN (21:11)
[2019-10-20] MEDS: LACTATED RINGERS 1,000 ML IV SCH ×4 (00:43→21:08)
[2019-10-20] MEDS: INSULIN LISPRO 100 UNIT/ML SUBCUT SCH ×4 (00:44→18:24)
[2019-10-20] MEDS: ALBUTEROL/IPRATROPIUM 3 ML NEB RESP TX SCH ×4 (00:52→19:23)
[2019-10-20] MEDS ORDERED: SODIUM CHLORIDE 0.9% 500 ML IV ONE (01:16)
[2019-10-20 03:33] LABS: Albumin 2.5 G/DL (3.4-5.0); Bilirubin,Total 0.5 MG/DL (0.2-1.0); Calcium 6.6 MG/DL (8.5-10.1); Osmolality,Calculated 279.4 MOS/KG (273-304); Total Protein 5.6 G/DL (6.4-8.3)
[2019-10-20 03:57] LABS: ABG Base Excess 3.1 MMOL/L (-2.5-2.5); ABG HCO3 27.2 MMOL/L (20-26); ABG PCO2 37.6 MM HG (35-48); ABG PH 7.464 (7.35-7.45); ABG TCO2 25.5 MMOL/L (23-27); Allen Test Positive; Pt O2 Delivery Device Ventilator
[2019-10-20] MEDS: POTASSIUM CHLORIDE RIDER 10 MEQ in PREMIX 1 EACH IV PRN ×5 (04:15→08:34)
[2019-10-20] MEDS ORDERED: SODIUM CHLORIDE 0.9% 1,000 ML IV SCH (06:00)
[2019-10-20 06:46] LABS: Basophils % 0.1 % (0.0-0.8); Hematocrit 28.8 VOL% (35.7-47.0); Hemoglobin 7.6 GM/DL (12.0-16.0); Immature Granulocytes % 0.4 %; Immature Granulocytes Absolute 0.04 #; Lymphocytes # 2.1 10*3/uL (1.4-4.0); Lymphocytes % 22.4 % (21.3-54.2); Mean Corpuscular HGB Conc 26.4 GM/DL (32-36); Mean Corpuscular Volume 82.8 FL (87-102); Mean Platelet Volume 11.6 FL (9.6-12.0); Monocytes % 8.3 % (1.7-12.7); Neutrophils % 68.8 % (38.7-73.9); Platelet Count 89 T/CUMM (130-400); Red Blood Count 3.48 MC/CUMM (3.8-5.5); Red Cell Distribution Width 20.6 % (9.3-17.3); White Blood Count 9.4 T/CUMM (4-12)
[2019-10-20 06:50] LABS: Hypochromasia Slight; Lymphocytes 24 % (20-55); Nucleated Red Blood Cells 1 (0-5); Platelet Estimate Decreased; Segmented Neutrophils 72 % (50-85); Total Cells Counted 100
[2019-10-20 06:51] LABS: Microcytosis 1+
[2019-10-20] MEDS: TIROFIBAN 5,000 MCG/100 ML PREMIX IV SCH ×3 (07:11→14:01)
[2019-10-20] MEDS: LEVOTHYROXINE 100 MCG TABLET PO SCH (07:56)
[2019-10-20] MEDS: VENLAFAXINE XR 37.5 MG CAPSULE PO SCH (08:54)
[2019-10-20] MEDS: EZETIMIBE 10 MG TABLET PO SCH (08:54)
[2019-10-20] MEDS: RANOLAZINE 500 MG TABLET PO SCH ×2 (08:54→21:01)
[2019-10-20] MEDS: ISOSORBIDE MONONITRATE 30 MG TABLET PO SCH (08:54)
[2019-10-20] MEDS: ASPIRIN CHEW 81 MG TABLET PO SCH (08:54)
[2019-10-20] MEDS: PRASUGREL 10 MG TABLET PO SCH (08:54)
[2019-10-20] MEDS: PANTOPRAZOLE 40 MG VIAL IV SCH (08:54)
[2019-10-20] MEDS: ENOXAPARIN 40 MG/0.4 ML SYRINGE SUBCUT SCH (09:39)
[2019-10-20] MEDS ORDERED: LIDOCAINE 1% 20 ML VIAL ONE (10:43)
[2019-10-20] MEDS ORDERED: HYDROmorphone 2 MG/1 ML VIAL ONE (10:56)
[2019-10-20] MEDS ORDERED: ENOXAPARIN 30 MG/0.3 ML SYRINGE ONE (11:09)
[2019-10-20] MEDS ORDERED: ENOXAPARIN 60 MG/0.6 ML SYRINGE ONE (11:09)
[2019-10-20 13:26] LABS: CKMB % 1.7 %; Troponin I 3.88 NG/ML (0.00-0.045)
[2019-10-20] MEDS ORDERED: SODIUM CHLORIDE 0.9% 500 ML IV PRN (22:26)
[2019-10-20] MEDS: LORazepam 2 MG/1 ML VIAL IV PRN (22:53)
[2019-10-21] MEDS: INSULIN LISPRO 100 UNIT/ML SUBCUT SCH ×5 (00:01→20:34)
[2019-10-21] MEDS: ALBUTEROL/IPRATROPIUM 3 ML NEB RESP TX SCH ×4 (00:28→19:22)
[2019-10-21] MEDS: ONDANSETRON 4 MG/2 ML VIAL IV PRN (00:30)
[2019-10-21] MEDS: LEVOFLOXACIN INJ 750 MG in PREMIX 1 EACH IV SCH (03:21)
[2019-10-21 04:26] LABS: ABG Base Excess 2.4 MMOL/L (-2.5-2.5); ABG HCO3 26.6 MMOL/L (20-26); ABG Oxygen Saturation 99.4 % (95-100); ABG PCO2 39.7 MM HG (35-48); ABG PH 7.435 (7.35-7.45); ABG TCO2 25.4 MMOL/L (23-27); Allen Test Positive; Pt O2 Delivery Device Ventilator
[2019-10-21] MEDS: LACTATED RINGERS 1,000 ML IV SCH (06:14)
[2019-10-21] MEDS: LEVOTHYROXINE 100 MCG TABLET PO SCH (06:14)
[2019-10-21 06:26] LABS: Calcium 7.1 MG/DL (8.5-10.1); Osmolality,Calculated 278.5 MOS/KG (273-304)
[2019-10-21 06:48] LABS: Troponin I 2.39 NG/ML (0.00-0.045)
[2019-10-21] MEDS: LORazepam 2 MG/1 ML VIAL IV PRN (06:48)
[2019-10-21 07:11] LABS: Basophils % 0.2 % (0.0-0.8); Eosinophils % 0.2 % (0.00-10.9); Hematocrit 23.1 VOL% (35.7-47.0); Hemoglobin 6.5 GM/DL (12.0-16.0); Immature Granulocytes % 0.3 %; Immature Granulocytes Absolute 0.02 #; Lymphocytes # 1.7 10*3/uL (1.4-4.0); Lymphocytes % 28.9 % (21.3-54.2); Mean Corpuscular HGB Conc 28.1 GM/DL (32-36); Mean Corpuscular Volume 79.1 FL (87-102); Mean Platelet Volume 10.5 FL (9.6-12.0); Monocytes % 6.5 % (1.7-12.7); Neutrophils % 63.9 % (38.7-73.9); Platelet Count 146 T/CUMM (130-400); Red Blood Count 2.92 MC/CUMM (3.8-5.5); Red Cell Distribution Width 20.3 % (9.3-17.3); White Blood Count 5.8 T/CUMM (4-12)
[2019-10-21 07:21] LABS: Hypochromasia 1+; Lymphocytes 25 % (20-55); Platelet Estimate Normal; Segmented Neutrophils 67 % (50-85); Total Cells Counted 100
[2019-10-21 07:22] LABS: Microcytosis Slight
[2019-10-21] MEDS: VENLAFAXINE XR 37.5 MG CAPSULE PO SCH (08:32)
[2019-10-21] MEDS: EZETIMIBE 10 MG TABLET PO SCH (08:32)
[2019-10-21] MEDS: PRASUGREL 10 MG TABLET PO SCH (08:32)
[2019-10-21] MEDS: RANOLAZINE 500 MG TABLET PO SCH ×2 (08:32→20:42)
[2019-10-21] MEDS: PANTOPRAZOLE 40 MG VIAL IV SCH (08:32)
[2019-10-21] MEDS: MULTIVITAMIN LIQUID (CENTRUM) 60 ML BOTTLE PO SCH (08:32)
[2019-10-21] MEDS: ASPIRIN CHEW 81 MG TABLET PO SCH (08:32)
[2019-10-21] MEDS: ISOSORBIDE MONONITRATE 30 MG TABLET PO SCH (08:32)
[2019-10-21] MEDS ORDERED: FUROSEMIDE 40 MG/4 ML VIAL IV ONE ×2 (10:29→11:59)
[2019-10-21] MEDS: ZALEPLON 5 MG CAPSULE PO PRN (20:43)
[2019-10-21 23:14] LABS: Hematocrit 33.1 VOL% (35.7-47.0)
[2019-10-21 23:15] LABS: Hemoglobin 9.6 GM/DL (12.0-16.0)
[2019-10-22] MEDS: ALBUTEROL/IPRATROPIUM 3 ML NEB RESP TX SCH ×4 (01:09→19:13)
[2019-10-22 06:10] LABS: Osmolality,Calculated 280.3 MOS/KG (273-304)
[2019-10-22 06:25] LABS: Basophils % 0.1 % (0.0-0.8); Eosinophils % 0.1 % (0.00-10.9); Hemoglobin 9.6 GM/DL (12.0-16.0); Immature Granulocytes % 0.6 %; Immature Granulocytes Absolute 0.05 #; Lymphocytes # 1.1 10*3/uL (1.4-4.0); Lymphocytes % 13.4 % (21.3-54.2); Mean Corpuscular HGB Conc 29.1 GM/DL (32-36); Mean Corpuscular Volume 80.5 FL (87-102); Mean Platelet Volume 10.5 FL (9.6-12.0); Monocytes % 6.9 % (1.7-12.7); NRBC # 0.02 10*3/uL; Neutrophils % 78.9 % (38.7-73.9); Platelet Count 136 T/CUMM (130-400); Red Cell Distribution Width 19.9 % (9.3-17.3); White Blood Count 8.5 T/CUMM (4-12)
[2019-10-22 06:43] LABS: Hypochromasia 1+; Microcytosis Slight; Platelet Estimate Normal
[2019-10-22] MEDS: LEVOTHYROXINE 100 MCG TABLET PO SCH (06:44)
[2019-10-22] MEDS: POTASSIUM CHLORIDE RIDER 10 MEQ in PREMIX 1 EACH IV PRN (06:45)
[2019-10-22] MEDS: INSULIN LISPRO 100 UNIT/ML SUBCUT SCH ×2 (07:30→11:30)
[2019-10-22] MEDS: MULTIVITAMIN LIQUID (CENTRUM) 60 ML BOTTLE PO SCH (09:00)
[2019-10-22] MEDS ORDERED: ALBUTEROL/IPRATROPIUM 3 ML NEB RESP TX ONE (09:43)
[2019-10-22] MEDS: ISOSORBIDE MONONITRATE 30 MG TABLET PO SCH (10:18)
[2019-10-22] MEDS: RANOLAZINE 500 MG TABLET PO SCH ×2 (10:19→21:27)
[2019-10-22] MEDS: EZETIMIBE 10 MG TABLET PO SCH (10:19)
[2019-10-22] MEDS: VENLAFAXINE XR 37.5 MG CAPSULE PO SCH (10:20)
[2019-10-22] MEDS: ASPIRIN CHEW 81 MG TABLET PO SCH (10:20)
[2019-10-22] MEDS: POTASSIUM CHLORIDE 20 MEQ TABLET PO SCH ×3 (10:20→17:37)
[2019-10-22] MEDS: PRASUGREL 10 MG TABLET PO SCH (10:20)
[2019-10-22] MEDS: PANTOPRAZOLE 40 MG TABLET PO SCH (10:21)
[2019-10-22] MEDS: LEVOFLOXACIN INJ 750 MG in PREMIX 1 EACH IV SCH (10:26)
[2019-10-22] MEDS: MULTIVITAMIN (CENTRUM) TABLET PO SCH (10:51)
[2019-10-22] MEDS: ROSUVASTATIN 20 MG TABLET PO SCH (15:42)
[2019-10-22] MEDS: METOPROLOL TARTRATE 25 MG TABLET PO SCH (21:27)
[2019-10-22] MEDS: ZALEPLON 5 MG CAPSULE PO PRN (21:27)
[2019-10-23] MEDS: ACETAMINOPHEN 325 MG TABLET PO PRN (00:33)
[2019-10-23] MEDS: ALBUTEROL/IPRATROPIUM 3 ML NEB RESP TX SCH ×4 (01:08→19:36)
[2019-10-23 04:58] LABS: Albumin 2.6 G/DL (3.4-5.0); Bilirubin,Total 1.2 MG/DL (0.2-1.0); Calcium 7.4 MG/DL (8.5-10.1); Osmolality,Calculated 273.7 MOS/KG (273-304)
[2019-10-23 05:35] LABS: Basophils % 0.1 % (0.0-0.8); Eosinophils # 0.1 10*3/uL (0.0-0.87); Eosinophils % 1.2 % (0.00-10.9); Hematocrit 30.8 VOL% (35.7-47.0); Hemoglobin 8.9 GM/DL (12.0-16.0); Immature Granulocytes % 0.6 %; Immature Granulocytes Absolute 0.04 #; Lymphocytes # 1.4 10*3/uL (1.4-4.0); Lymphocytes % 21.2 % (21.3-54.2); Mean Corpuscular HGB Conc 28.9 GM/DL (32-36); Mean Corpuscular Volume 80.8 FL (87-102); Mean Platelet Volume 10.5 FL (9.6-12.0); Monocytes % 8.2 % (1.7-12.7); NRBC # 0.02 10*3/uL; Neutrophils % 68.7 % (38.7-73.9); Platelet Count 143 T/CUMM (130-400); Red Blood Count 3.81 MC/CUMM (3.8-5.5); Red Cell Distribution Width 19.9 % (9.3-17.3); White Blood Count 6.8 T/CUMM (4-12)
[2019-10-23 05:51] LABS: Hypochromasia 1+; Microcytosis 1+; Tear Drop Cells Slight
[2019-10-23 05:52] LABS: Ovalocytes Slight; Platelet Estimate Adequate
[2019-10-23] MEDS: LEVOTHYROXINE 100 MCG TABLET PO SCH (06:40)
[2019-10-23] MEDS: ISOSORBIDE MONONITRATE 30 MG TABLET PO SCH (08:40)
[2019-10-23] MEDS: VENLAFAXINE XR 37.5 MG CAPSULE PO SCH (08:41)
[2019-10-23] MEDS: PANTOPRAZOLE 40 MG TABLET PO SCH (08:41)
[2019-10-23] MEDS: METOPROLOL TARTRATE 25 MG TABLET PO SCH ×3 (08:41→20:47)
[2019-10-23] MEDS: MULTIVITAMIN (CENTRUM) TABLET PO SCH (08:41)
[2019-10-23] MEDS: ASPIRIN CHEW 81 MG TABLET PO SCH (08:42)
[2019-10-23] MEDS: RANOLAZINE 500 MG TABLET PO SCH ×2 (08:42→20:46)
[2019-10-23] MEDS: PRASUGREL 10 MG TABLET PO SCH (08:42)
[2019-10-23] MEDS: ROSUVASTATIN 20 MG TABLET PO SCH (08:42)
[2019-10-23] MEDS: EZETIMIBE 10 MG TABLET PO SCH (08:43)
[2019-10-23] MEDS: LEVOFLOXACIN INJ 750 MG in PREMIX 1 EACH IV SCH (08:49)
[2019-10-23] MEDS: HYDROmorphone 2 MG/1 ML VIAL IV PRN (18:09)
[2019-10-24] MEDS: ALBUTEROL/IPRATROPIUM 3 ML NEB RESP TX SCH ×4 (00:07→19:46)
[2019-10-24] MEDS: HYDROmorphone 2 MG/1 ML VIAL IV PRN ×2 (01:12→18:16)
[2019-10-24] MEDS: ONDANSETRON 4 MG/2 ML VIAL IV PRN (03:50)
[2019-10-24] MEDS: LEVOTHYROXINE 100 MCG TABLET PO SCH (06:15)
[2019-10-24 06:41] LABS: Albumin 2.8 G/DL (3.4-5.0); Bilirubin,Total 0.9 MG/DL (0.2-1.0); Calcium 8.1 MG/DL (8.5-10.1); Osmolality,Calculated 262.5 MOS/KG (273-304); Total Protein 6.7 G/DL (6.4-8.3)
[2019-10-24 07:38] LABS: Basophils % 0.3 % (0.0-0.8); Eosinophils # 0.1 10*3/uL (0.0-0.87); Eosinophils % 1.9 % (0.00-10.9); Hematocrit 33.1 VOL% (35.7-47.0); Immature Granulocytes % 0.7 %; Immature Granulocytes Absolute 0.05 #; Lymphocytes # 1.4 10*3/uL (1.4-4.0); Lymphocytes % 21.2 % (21.3-54.2); Mean Corpuscular HGB Conc 29.3 GM/DL (32-36); Mean Corpuscular Volume 80.5 FL (87-102); Mean Platelet Volume 10.4 FL (9.6-12.0); Monocytes % 9.7 % (1.7-12.7); NRBC # 0.02 10*3/uL; Neutrophils % 66.2 % (38.7-73.9); Platelet Count 160 T/CUMM (130-400); Red Blood Count 4.11 MC/CUMM (3.8-5.5); White Blood Count 6.7 T/CUMM (4-12)
[2019-10-24 07:44] LABS: Hemoglobin 9.7 GM/DL (12.0-16.0)
[2019-10-24 07:55] LABS: Hypochromasia 1+; Microcytosis 1+
[2019-10-24 07:56] LABS: Ovalocytes Slight; Platelet Estimate Adequate; Spherocytes Slight
[2019-10-24] MEDS: VENLAFAXINE XR 37.5 MG CAPSULE PO SCH (08:40)
[2019-10-24] MEDS: ROSUVASTATIN 20 MG TABLET PO SCH (08:41)
[2019-10-24] MEDS: METOPROLOL TARTRATE 25 MG TABLET PO SCH ×3 (08:41→20:38)
[2019-10-24] MEDS: RANOLAZINE 500 MG TABLET PO SCH ×2 (08:41→20:38)
[2019-10-24] MEDS: PRASUGREL 10 MG TABLET PO SCH (08:41)
[2019-10-24] MEDS: PANTOPRAZOLE 40 MG TABLET PO SCH (08:41)
[2019-10-24] MEDS: EZETIMIBE 10 MG TABLET PO SCH (08:42)
[2019-10-24] MEDS: ASPIRIN CHEW 81 MG TABLET PO SCH (08:42)
[2019-10-24] MEDS: MULTIVITAMIN (CENTRUM) TABLET PO SCH (08:42)
[2019-10-24] MEDS: ISOSORBIDE MONONITRATE 30 MG TABLET PO SCH (08:42)
[2019-10-24] MEDS: LEVOFLOXACIN INJ 750 MG in PREMIX 1 EACH IV SCH (08:45)
[2019-10-25] MEDS: ALBUTEROL/IPRATROPIUM 3 ML NEB RESP TX SCH ×4 (00:30→19:00)
[2019-10-25] MEDS: ZALEPLON 5 MG CAPSULE PO PRN ×2 (01:16→21:10)
[2019-10-25 05:58] LABS: Basophils % 0.4 % (0.0-0.8); Calcium 8.8 MG/DL (8.5-10.1); Eosinophils # 0.1 10*3/uL (0.0-0.87); Hematocrit 32.5 VOL% (35.7-47.0); Hemoglobin 9.1 GM/DL (12.0-16.0); Immature Granulocytes % 0.5 %; Immature Granulocytes Absolute 0.03 #; Lymphocytes # 1.3 10*3/uL (1.4-4.0); Lymphocytes % 23.8 % (21.3-54.2); Mean Corpuscular Volume 83.5 FL (87-102); Mean Platelet Volume 10.8 FL (9.6-12.0); Monocytes % 11.2 % (1.7-12.7); Neutrophils % 62.1 % (38.7-73.9); Platelet Count 173 T/CUMM (130-400); Red Blood Count 3.89 MC/CUMM (3.8-5.5); Red Cell Distribution Width 20.3 % (9.3-17.3); White Blood Count 5.6 T/CUMM (4-12)
[2019-10-25 06:04] LABS: Albumin 2.6 G/DL (3.4-5.0); Bilirubin,Direct 0.19 MG/DL (0.0-0.20); Bilirubin,Indirect 1.1 MG/DL (0.0-1.0); Bilirubin,Total 1.3 MG/DL (0.2-1.0); Total Protein 6.1 G/DL (6.4-8.3)
[2019-10-25 06:10] LABS: Anisocytosis 2+; Giant Platelets Few; Macrocytosis 1+; Platelet Estimate Normal
[2019-10-25 06:11] LABS: Poikilocytosis Slight
[2019-10-25] MEDS: LEVOTHYROXINE 100 MCG TABLET PO SCH (06:30)
[2019-10-25 06:31] LABS: Folate 9.5 NG/ML (5.4-24.0); Vitamin B12 365 PG/ML (211-911)
[2019-10-25 06:35] LABS: % Iron Saturation 6.9 % (18-50); Ferritin 55.1 ng/ml (8-252)
[2019-10-25 07:09] LABS: Sedimentation Rate-Westergren 25 MM/HR (0-30)
[2019-10-25] MEDS: ROSUVASTATIN 20 MG TABLET PO SCH (09:30)
[2019-10-25] MEDS: EZETIMIBE 10 MG TABLET PO SCH (09:30)
[2019-10-25] MEDS: PRASUGREL 10 MG TABLET PO SCH (09:30)
[2019-10-25] MEDS: ASPIRIN CHEW 81 MG TABLET PO SCH (09:30)
[2019-10-25] MEDS: ISOSORBIDE MONONITRATE 30 MG TABLET PO SCH (09:31)
[2019-10-25] MEDS: MULTIVITAMIN (CENTRUM) TABLET PO SCH (09:31)
[2019-10-25] MEDS: PANTOPRAZOLE 40 MG TABLET PO SCH (09:31)
[2019-10-25] MEDS: RANOLAZINE 500 MG TABLET PO SCH ×2 (09:31→21:10)
[2019-10-25] MEDS: LEVOFLOXACIN INJ 750 MG in PREMIX 1 EACH IV SCH (09:34)
[2019-10-25] MEDS: VENLAFAXINE XR 37.5 MG CAPSULE PO SCH (09:44)
[2019-10-25 10:53] LABS: Hemoglobin A1 (Alkaline) 97.9 % (96.5-98.5); Hemoglobin A2 (Alkaline) 2.1 % (1.5-3.5)
[2019-10-25] MEDS: lisinopriL 5 MG TABLET PO SCH (12:08)
[2019-10-25] MEDS: ONDANSETRON 4 MG/2 ML VIAL IV PRN (12:21)
[2019-10-25] MEDS: METOPROLOL SUCCINATE XL 25 MG TABLET PO SCH (12:21)
[2019-10-25] MEDS: METOPROLOL TARTRATE 25 MG TABLET PO SCH (12:31)
[2019-10-25] MEDS: HYDROmorphone 2 MG/1 ML VIAL IV PRN (13:49)
[2019-10-25] MEDS: buPROPion SR 100 MG TABLET PO SCH (21:10)
[2019-10-26] MEDS: ALBUTEROL/IPRATROPIUM 3 ML NEB RESP TX SCH ×4 (00:10→18:30)
[2019-10-26 06:05] LABS: Albumin 2.8 G/DL (3.4-5.0); Bilirubin,Direct 0.21 MG/DL (0.0-0.20); Bilirubin,Indirect 1.3 MG/DL (0.0-1.0); Bilirubin,Total 1.5 MG/DL (0.2-1.0); Total Protein 6.2 G/DL (6.4-8.3)
[2019-10-26] MEDS: LEVOTHYROXINE 100 MCG TABLET PO SCH (06:16)
[2019-10-26 07:08] LABS: Basophils % 0.2 % (0.0-0.8); Eosinophils # 0.1 10*3/uL (0.0-0.87); Eosinophils % 2.1 % (0.00-10.9); Hematocrit 32.3 VOL% (35.7-47.0); Immature Granulocytes % 0.5 %; Immature Granulocytes Absolute 0.03 #; Lymphocytes # 1.3 10*3/uL (1.4-4.0); Lymphocytes % 19.5 % (21.3-54.2); Mean Corpuscular HGB Conc 29.1 GM/DL (32-36); Mean Corpuscular Volume 82.2 FL (87-102); Mean Platelet Volume 10.7 FL (9.6-12.0); Monocytes % 10.4 % (1.7-12.7); Neutrophils % 67.3 % (38.7-73.9); Platelet Count 168 T/CUMM (130-400); Red Blood Count 3.93 MC/CUMM (3.8-5.5); Red Cell Distribution Width 20.7 % (9.3-17.3); White Blood Count 6.6 T/CUMM (4-12)
[2019-10-26 07:13] LABS: Hemoglobin 9.4 GM/DL (12.0-16.0)
[2019-10-26] MEDS: buPROPion SR 100 MG TABLET PO SCH ×2 (08:25→21:37)
[2019-10-26] MEDS: ROSUVASTATIN 20 MG TABLET PO SCH (08:25)
[2019-10-26] MEDS: MULTIVITAMIN (CENTRUM) TABLET PO SCH (08:25)
[2019-10-26] MEDS: RANOLAZINE 500 MG TABLET PO SCH ×2 (08:25→21:36)
[2019-10-26] MEDS: lisinopriL 5 MG TABLET PO SCH (08:26)
[2019-10-26] MEDS: METOPROLOL SUCCINATE XL 25 MG TABLET PO SCH (08:26)
[2019-10-26] MEDS: EZETIMIBE 10 MG TABLET PO SCH (08:26)
[2019-10-26] MEDS: VENLAFAXINE XR 37.5 MG CAPSULE PO SCH (08:26)
[2019-10-26] MEDS: PRASUGREL 10 MG TABLET PO SCH (08:26)
[2019-10-26] MEDS: ASPIRIN CHEW 81 MG TABLET PO SCH (08:26)
[2019-10-26] MEDS: PANTOPRAZOLE 40 MG TABLET PO SCH (08:26)
[2019-10-26] MEDS: LEVOFLOXACIN INJ 750 MG in PREMIX 1 EACH IV SCH (08:28)
[2019-10-26] MEDS ORDERED: KETOROLAC 10 MG TABLET PO PRN (13:38)
[2019-10-26] MEDS: ONDANSETRON 4 MG/2 ML VIAL IV PRN (15:16)
[2019-10-26] MEDS: ZALEPLON 5 MG CAPSULE PO PRN (21:40)
[2019-10-26] MEDS: HYDROmorphone 2 MG/1 ML VIAL IV PRN (23:04)
[2019-10-27] MEDS: ALBUTEROL/IPRATROPIUM 3 ML NEB RESP TX SCH ×4 (00:10→19:08)
[2019-10-27 04:53] LABS: Basophils % 0.3 % (0.0-0.8); Calcium 8.9 MG/DL (8.5-10.1); Eosinophils # 0.1 10*3/uL (0.0-0.87); Eosinophils % 1.2 % (0.00-10.9); Hematocrit 32.8 VOL% (35.7-47.0); Hemoglobin 9.6 GM/DL (12.0-16.0); Immature Granulocytes % 0.7 %; Immature Granulocytes Absolute 0.04 #; Lymphocytes # 1.5 10*3/uL (1.4-4.0); Lymphocytes % 24.9 % (21.3-54.2); Mean Corpuscular HGB Conc 29.3 GM/DL (32-36); Mean Corpuscular Volume 80.4 FL (87-102); Mean Platelet Volume 10.2 FL (9.6-12.0); Monocytes % 12.4 % (1.7-12.7); Neutrophils % 60.5 % (38.7-73.9); Platelet Count 161 T/CUMM (130-400); Red Blood Count 4.08 MC/CUMM (3.8-5.5); Red Cell Distribution Width 20.6 % (9.3-17.3); White Blood Count 6.1 T/CUMM (4-12)
[2019-10-27 04:57] LABS: Hypochromasia 1+; Microcytosis Slight
[2019-10-27 05:13] LABS: Albumin 2.9 G/DL (3.4-5.0); Bilirubin,Direct 0.26 MG/DL (0.0-0.20); Bilirubin,Indirect 0.3 MG/DL (0.0-1.0); Bilirubin,Total 0.6 MG/DL (0.2-1.0); Total Protein 6.7 G/DL (6.4-8.3)
[2019-10-27] MEDS: LEVOTHYROXINE 100 MCG TABLET PO SCH (06:21)
[2019-10-27] MEDS: ROSUVASTATIN 20 MG TABLET PO SCH (10:01)
[2019-10-27] MEDS: PANTOPRAZOLE 40 MG TABLET PO SCH (10:01)
[2019-10-27] MEDS: ASPIRIN CHEW 81 MG TABLET PO SCH (10:01)
[2019-10-27] MEDS: RANOLAZINE 500 MG TABLET PO SCH ×2 (10:01→20:49)
[2019-10-27] MEDS: MULTIVITAMIN (CENTRUM) TABLET PO SCH (10:01)
[2019-10-27] MEDS: EZETIMIBE 10 MG TABLET PO SCH (10:01)
[2019-10-27] MEDS: PRASUGREL 10 MG TABLET PO SCH (10:02)
[2019-10-27] MEDS: LEVOFLOXACIN INJ 750 MG in PREMIX 1 EACH IV SCH (10:02)
[2019-10-27] MEDS: METOPROLOL SUCCINATE XL 25 MG TABLET PO SCH (10:02)
[2019-10-27] MEDS: lisinopriL 5 MG TABLET PO SCH (10:02)
[2019-10-27] MEDS: buPROPion SR 100 MG TABLET PO SCH ×2 (10:02→20:49)
[2019-10-27] MEDS: VENLAFAXINE XR 37.5 MG CAPSULE PO SCH (10:02)
[2019-10-27] MEDS: ONDANSETRON 4 MG/2 ML VIAL IV PRN (15:23)
[2019-10-27] MEDS: HYDROmorphone 2 MG/1 ML VIAL IV PRN (15:34)
[2019-10-27] MEDS: GABAPENTIN 300 MG CAPSULE PO SCH ×2 (15:50→20:49)
[2019-10-27] MEDS: ZALEPLON 5 MG CAPSULE PO PRN (20:49)
[2019-10-28] MEDS: ALBUTEROL/IPRATROPIUM 3 ML NEB RESP TX SCH ×4 (00:32→20:03)
[2019-10-28 05:22] LABS: Basophils % 0.3 % (0.0-0.8); Eosinophils # 0.1 10*3/uL (0.0-0.87); Eosinophils % 1.1 % (0.00-10.9); Hematocrit 29.8 VOL% (35.7-47.0); Hemoglobin 8.8 GM/DL (12.0-16.0); Immature Granulocytes % 0.5 %; Immature Granulocytes Absolute 0.03 #; Lymphocytes # 1.4 10*3/uL (1.4-4.0); Lymphocytes % 21.8 % (21.3-54.2); Mean Corpuscular HGB Conc 29.5 GM/DL (32-36); Mean Corpuscular Volume 80.8 FL (87-102); Mean Platelet Volume 10.7 FL (9.6-12.0); Monocytes % 13.6 % (1.7-12.7); Neutrophils % 62.7 % (38.7-73.9); Platelet Count 151 T/CUMM (130-400); Red Blood Count 3.69 MC/CUMM (3.8-5.5); Red Cell Distribution Width 20.8 % (9.3-17.3); White Blood Count 6.3 T/CUMM (4-12)
[2019-10-28 05:27] LABS: Calcium 8.3 MG/DL (8.5-10.1); Osmolality,Calculated 267.1 MOS/KG (273-304)
[2019-10-28 05:35] LABS: Albumin 2.7 G/DL (3.4-5.0); Bilirubin,Direct 0.22 MG/DL (0.0-0.20); Bilirubin,Indirect 0.9 MG/DL (0.0-1.0); Bilirubin,Total 1.1 MG/DL (0.2-1.0); Total Protein 5.6 G/DL (6.4-8.3)
[2019-10-28] MEDS: LEVOTHYROXINE 100 MCG TABLET PO SCH (05:50)
[2019-10-28 06:13] LABS: Hypochromasia 2+; Microcytosis 1+; Ovalocytes Slight; Platelet Estimate Adequate
[2019-10-28] MEDS: RANOLAZINE 500 MG TABLET PO SCH ×2 (08:50→19:35)
[2019-10-28] MEDS: EZETIMIBE 10 MG TABLET PO SCH (08:50)
[2019-10-28] MEDS: PANTOPRAZOLE 40 MG TABLET PO SCH (08:51)
[2019-10-28] MEDS: MULTIVITAMIN (CENTRUM) TABLET PO SCH (08:51)
[2019-10-28] MEDS: ROSUVASTATIN 20 MG TABLET PO SCH (08:51)
[2019-10-28] MEDS: ASPIRIN CHEW 81 MG TABLET PO SCH (08:51)
[2019-10-28] MEDS: VENLAFAXINE XR 37.5 MG CAPSULE PO SCH (08:51)
[2019-10-28] MEDS: buPROPion SR 100 MG TABLET PO SCH ×2 (08:51→19:35)
[2019-10-28] MEDS: METOPROLOL SUCCINATE XL 25 MG TABLET PO SCH (08:51)
[2019-10-28] MEDS: PRASUGREL 10 MG TABLET PO SCH (08:51)
[2019-10-28] MEDS: lisinopriL 5 MG TABLET PO SCH (08:51)
[2019-10-28] MEDS: GABAPENTIN 300 MG CAPSULE PO SCH ×3 (08:51→19:35)
[2019-10-28] MEDS: LEVOFLOXACIN INJ 750 MG in PREMIX 1 EACH IV SCH (08:54)
[2019-10-29] MEDS: ALBUTEROL/IPRATROPIUM 3 ML NEB RESP TX SCH ×2 (00:18→07:20)
[2019-10-29] MEDS: ACETAMINOPHEN 325 MG TABLET PO PRN (01:10)
[2019-10-29 05:28] LABS: Basophils % 0.1 % (0.0-0.8); Eosinophils # 0.1 10*3/uL (0.0-0.87); Eosinophils % 0.7 % (0.00-10.9); Immature Granulocytes % 0.5 %; Immature Granulocytes Absolute 0.04 #; Lymphocytes # 1.3 10*3/uL (1.4-4.0); Lymphocytes % 17.8 % (21.3-54.2); Mean Corpuscular HGB Conc 28.2 GM/DL (32-36); Mean Corpuscular Volume 82.2 FL (87-102); Mean Platelet Volume 10.7 FL (9.6-12.0); Monocytes % 10.8 % (1.7-12.7); Neutrophils % 70.1 % (38.7-73.9); Platelet Count 162 T/CUMM (130-400); Red Blood Count 3.49 MC/CUMM (3.8-5.5); Red Cell Distribution Width 20.8 % (9.3-17.3); White Blood Count 7.3 T/CUMM (4-12)
[2019-10-29 05:42] LABS: Calcium 8.3 MG/DL (8.5-10.1); Osmolality,Calculated 271.8 MOS/KG (273-304)
[2019-10-29 05:48] LABS: Albumin 2.5 G/DL (3.4-5.0); Bilirubin,Direct 0.23 MG/DL (0.0-0.20); Bilirubin,Indirect 1.9 MG/DL (0.0-1.0); Bilirubin,Total 2.1 MG/DL (0.2-1.0); Total Protein 5.4 G/DL (6.4-8.3)
[2019-10-29 06:15] LABS: Hematocrit 28.5 VOL% (35.7-47.0); Hemoglobin 8.2 GM/DL (12.0-16.0)
[2019-10-29] MEDS: LEVOTHYROXINE 100 MCG TABLET PO SCH (06:16)
[2019-10-29 06:31] LABS: Hypochromasia 2+; Microcytosis 1+; Platelet Estimate Adequate
[2019-10-29] MEDS: RANOLAZINE 500 MG TABLET PO SCH (08:19)
[2019-10-29] MEDS: buPROPion SR 100 MG TABLET PO SCH (08:19)
[2019-10-29] MEDS: ROSUVASTATIN 20 MG TABLET PO SCH (08:19)
[2019-10-29] MEDS: VENLAFAXINE XR 37.5 MG CAPSULE PO SCH (08:19)
[2019-10-29] MEDS: LEVOFLOXACIN INJ 750 MG in PREMIX 1 EACH IV SCH (08:20)
[2019-10-29] MEDS: MULTIVITAMIN (CENTRUM) TABLET PO SCH (08:20)
[2019-10-29] MEDS: lisinopriL 5 MG TABLET PO SCH (08:20)
[2019-10-29] MEDS: ASPIRIN CHEW 81 MG TABLET PO SCH (08:20)
[2019-10-29] MEDS: PRASUGREL 10 MG TABLET PO SCH (08:20)
[2019-10-29] MEDS: EZETIMIBE 10 MG TABLET PO SCH (08:20)
[2019-10-29] MEDS: GABAPENTIN 300 MG CAPSULE PO SCH (08:20)
[2019-10-29] MEDS: METOPROLOL SUCCINATE XL 25 MG TABLET PO SCH (08:20)
[2019-10-29] MEDS: PANTOPRAZOLE 40 MG TABLET PO SCH (08:20)
[2019-10-29 11:31] VITALS: BP 137/59
== END 2019-10-29 12:25 | disposition swing bed (61) | DRG 853 ==
LOC: EDBD → EDUNIT# → N.ED 01:08 → SUATTDRO 03:05 → N.EDINP 03:05 → N.ICU 09:35 → N.TELES 10-23 10:34
PROVIDERS: ADMIT Family Medicine; ATTEND Internal Medicine

== ENCOUNTER 2020-03-20 21:35 | Inpatient (IN) ==
[2020-03-20 22:39] LABS: Basophils % 0.1 % (0.0-0.8); Eosinophils % 0.1 % (0.00-10.9); Hematocrit 36.4 VOL% (35.7-47.0); Hemoglobin 11.7 GM/DL (12.0-16.0); Immature Granulocytes % 0.5 %; Immature Granulocytes Absolute 0.04 #; Lymphocytes # 1.5 10*3/uL (1.4-4.0); Lymphocytes % 20.4 % (21.3-54.2); Mean Corpuscular HGB Conc 32.1 GM/DL (32-36); Mean Corpuscular Volume 92.6 FL (87-102); Mean Platelet Volume 9.7 FL (9.6-12.0); Neutrophils % 74.9 % (38.7-73.9); Platelet Count 201 T/CUMM (130-400); Red Blood Count 3.93 MC/CUMM (3.8-5.5); White Blood Count 7.3 T/CUMM (4-12)
[2020-03-20 22:58] LABS: PT Patient Result 10.9 SECS (9.8-11.9); Partial Thromboplastin Time 25.7 SECS (23.9-33.8)
[2020-03-20 22:59] LABS: Albumin 3.9 G/DL (3.4-5.0); Bilirubin,Total 0.4 MG/DL (0.2-1.0); Calcium 9.5 MG/DL (8.5-10.1); Osmolality,Calculated 284.4 MOS/KG (273-304); Total Protein 7.8 G/DL (6.4-8.3)
[2020-03-20 23:07] LABS: Thyroid Stimulating Hormone 0.267 uIU/ml (0.358-3.74)
[2020-03-20] MEDS ORDERED: MORPHINE 4 MG/1 ML VIAL IV ONE (23:13)
[2020-03-20] MEDS ORDERED: ONDANSETRON 4 MG/2 ML VIAL IV STA (23:13)
[2020-03-21] MEDS ORDERED: GLUCAGON 1 MG VIAL IM PRN (02:21)
[2020-03-21] MEDS ORDERED: DEXTROSE 50% 25 GM/50 ML VIAL IV PRN (02:21)
[2020-03-21 04:10] LABS: Basophils % 0.2 % (0.0-0.8); Hematocrit 32.3 VOL% (35.7-47.0); Hemoglobin 10.2 GM/DL (12.0-16.0); Immature Granulocytes % 0.7 %; Immature Granulocytes Absolute 0.04 #; Lymphocytes # 1.3 10*3/uL (1.4-4.0); Mean Corpuscular HGB Conc 31.6 GM/DL (32-36); Mean Corpuscular Volume 93.4 FL (87-102); Mean Platelet Volume 9.3 FL (9.6-12.0); Monocytes % 6.8 % (1.7-12.7); Neutrophils % 71.3 % (38.7-73.9); Platelet Count 164 T/CUMM (130-400); Red Blood Count 3.46 MC/CUMM (3.8-5.5)
[2020-03-21 04:40] LABS: Calcium 8.5 MG/DL (8.5-10.1); Osmolality,Calculated 291.3 MOS/KG (273-304); Risk Ratio 2.11
[2020-03-21] MEDS ORDERED: ENOXAPARIN 100 MG/ML SYRINGE SUBCUT SCH (05:30)
[2020-03-21] MEDS: ONDANSETRON 4 MG/2 ML VIAL IV PRN (05:50)
[2020-03-21] MEDS: MORPHINE 4 MG/1 ML VIAL IV PRN ×2 (05:50→13:14)
[2020-03-21] MEDS: ALBUTEROL 2.5 MG/3 ML NEB RESP TX SCH ×2 (07:13→19:12)
[2020-03-21] MEDS ORDERED: BISOPROLOL 5 MG TABLET PO SCH (09:00)
[2020-03-21] MEDS ORDERED: cilostazoL 50 MG TABLET PO SCH (09:00)
[2020-03-21] MEDS ORDERED: ENOXAPARIN 40 MG/0.4 ML SYRINGE SUBCUT SCH (09:00)
[2020-03-21] MEDS ORDERED: SACUBITRIL/VALSARTAN 49-51 MG TABLET PO SCH (09:00)
[2020-03-21] MEDS ORDERED: SPIRONOLACTONE 25 MG TABLET PO SCH (09:00)
[2020-03-21] MEDS: PRASUGREL 10 MG TABLET PO SCH (10:02)
[2020-03-21] MEDS: AMIODARONE 200 MG TABLET PO SCH (10:02)
[2020-03-21] MEDS: ASPIRIN CHEW 81 MG TABLET PO SCH (10:02)
[2020-03-21] MEDS: RANOLAZINE 500 MG TABLET PO SCH ×2 (10:03→21:07)
[2020-03-21] MEDS: EZETIMIBE 10 MG TABLET PO SCH (10:03)
[2020-03-21] MEDS: PANTOPRAZOLE 40 MG TABLET PO SCH (10:03)
[2020-03-21] MEDS: ISOSORBIDE MONONITRATE 30 MG TABLET PO SCH (10:03)
[2020-03-21] MEDS ORDERED: SODIUM CHLORIDE 0.9% 1,000 ML IV SCH ×2 (12:00→18:30)
[2020-03-21 12:22] LABS: CKMB % 4.8 %
[2020-03-21 12:28] LABS: Troponin I 2.18 NG/ML (0.00-0.045)
[2020-03-21] MEDS ORDERED: HEPARIN/NACL 0.9% 2 UNITS/ML 1,000 ML IV ONE (13:35)
[2020-03-21] MEDS ORDERED: LIDOCAINE 1% 20 ML VIAL ONE ×2 (13:35→14:26)
[2020-03-21] MEDS ORDERED: DIAZEPAM 5 MG TABLET PO ONE (14:00)
[2020-03-21] MEDS ORDERED: diphenhydrAMINE CAP 25 MG CAPSULE PO ONE (14:00)
[2020-03-21] MEDS ORDERED: HYDROmorphone 2 MG/1 ML VIAL ONE (14:47)
[2020-03-21] MEDS ORDERED: MIDAZOLAM 2 MG/2 ML VIAL ONE (14:47)
[2020-03-21] MEDS ORDERED: ENOXAPARIN 60 MG/0.6 ML SYRINGE ONE (15:32)
[2020-03-21] MEDS ORDERED: TIROFIBAN 5,000 MCG/100 ML PREMIX IV ONE (16:00)
[2020-03-21] MEDS ORDERED: ONDANSETRON 4 MG/2 ML VIAL ONE (16:03)
[2020-03-21] MEDS ORDERED: NITROGLYCERIN DRIP 50 MG/250 ML BOTTLE IV ONE (16:07)
[2020-03-21] MEDS ORDERED: SUCCINYLCHOLINE 200 MG/10 ML VIAL ONE (16:59)
[2020-03-21] MEDS ORDERED: FUROSEMIDE 40 MG/4 ML VIAL ONE (17:54)
[2020-03-21] MEDS ORDERED: FUROSEMIDE 40 MG/4 ML VIAL IV ONE (17:59)
[2020-03-21 18:22] LABS: Bilirubin,Urine Negative (Negative); Blood, Urine Negative (Negative); Glucose,Urine (UA) Negative (Negative); Ketones,Urine Negative (Negative); Mucus,Urine Occasional /LPF (Occasional); Nitrite,Urine Negative (Negative); Protein,Urine Negative; RBC,Urine 7 /HPF (0-4); Squamous Epithelial Cell,Urine Occasional /HPF (0-10); Urine Appearance Slightly Hazy (Clear); Urine Color Yellow (Yellow); Urine Specific Gravity 1.057 (1.001-1.035); Urine Urobilinogen < 2.0 EU/DL (0.2-1.0); WBC,Urine 136 /HPF (0-6)
[2020-03-21] MEDS ORDERED: PHENYLEPHRINE DRIP 40 MG/250 ML PREMIX IV ONE (20:14)
[2020-03-21] MEDS ORDERED: PHENYLEPHRINE DRIP 40 MG/250 ML PREMIX IV PRN (20:17)
[2020-03-21] MEDS: ROSUVASTATIN 10 MG TABLET PO SCH (21:07)
[2020-03-22] MEDS: MORPHINE 4 MG/1 ML VIAL IV PRN ×2 (03:37→16:12)
[2020-03-22] MEDS: ONDANSETRON 4 MG/2 ML VIAL IV PRN ×2 (03:37→16:11)
[2020-03-22 04:22] LABS: Basophils % 0.2 % (0.0-0.8); Eosinophils % 0.3 % (0.00-10.9); Hematocrit 39.1 VOL% (35.7-47.0); Hemoglobin 11.9 GM/DL (12.0-16.0); Immature Granulocytes % 0.6 %; Immature Granulocytes Absolute 0.07 #; Lymphocytes # 2.3 10*3/uL (1.4-4.0); Lymphocytes % 20.8 % (21.3-54.2); Mean Corpuscular HGB Conc 30.4 GM/DL (32-36); Mean Corpuscular Volume 96.5 FL (87-102); Mean Platelet Volume 9.7 FL (9.6-12.0); Monocytes % 10.3 % (1.7-12.7); Neutrophils % 67.8 % (38.7-73.9); Platelet Count 202 T/CUMM (130-400); Red Blood Count 4.05 MC/CUMM (3.8-5.5); Red Cell Distribution Width 14.4 % (9.3-17.3); White Blood Count 10.8 T/CUMM (4-12)
[2020-03-22 04:43] LABS: Calcium 8.7 MG/DL (8.5-10.1); Osmolality,Calculated 275.8 MOS/KG (273-304)
[2020-03-22 04:47] LABS: CKMB % 6.5 %
[2020-03-22 04:49] LABS: Troponin I 3.21 NG/ML (0.00-0.045)
[2020-03-22 05:39] LABS: ABG Base Excess 0.4 MMOL/L (-2.5-2.5); ABG HCO3 24.8 MMOL/L (20-26); ABG PCO2 38.4 MM HG (35-48); ABG PH 7.417 (7.35-7.45); ABG TCO2 22.3 MMOL/L (23-27); Allen Test Positive; Pt O2 Delivery Device Ventilator
[2020-03-22] MEDS ORDERED: FUROSEMIDE 40 MG/4 ML VIAL IV ONE (07:23)
[2020-03-22] MEDS: ALBUTEROL 2.5 MG/3 ML NEB RESP TX SCH ×2 (07:39→19:13)
[2020-03-22] MEDS: PRASUGREL 10 MG TABLET PO SCH (08:47)
[2020-03-22] MEDS: RANOLAZINE 500 MG TABLET PO SCH ×2 (08:47→21:12)
[2020-03-22] MEDS: AMIODARONE 200 MG TABLET PO SCH (08:47)
[2020-03-22] MEDS: ASPIRIN CHEW 81 MG TABLET PO SCH (08:47)
[2020-03-22] MEDS: EZETIMIBE 10 MG TABLET PO SCH (08:48)
[2020-03-22] MEDS: PANTOPRAZOLE 40 MG TABLET PO SCH (11:10)
[2020-03-22] MEDS: ISOSORBIDE MONONITRATE 30 MG TABLET PO SCH (11:10)
[2020-03-22] MEDS: ROSUVASTATIN 10 MG TABLET PO SCH (21:12)
[2020-03-23] MEDS: ACETAMINOPHEN 325 MG TABLET PO PRN (02:47)
[2020-03-23 03:42] LABS: Basophils % 0.3 % (0.0-0.8); Eosinophils % 0.5 % (0.00-10.9); Hematocrit 31.4 VOL% (35.7-47.0); Hemoglobin 9.9 GM/DL (12.0-16.0); Immature Granulocytes % 0.5 %; Immature Granulocytes Absolute 0.04 #; Lymphocytes # 2.3 10*3/uL (1.4-4.0); Lymphocytes % 29.9 % (21.3-54.2); Mean Corpuscular HGB Conc 31.5 GM/DL (32-36); Mean Platelet Volume 9.3 FL (9.6-12.0); Monocytes % 9.9 % (1.7-12.7); Neutrophils % 58.9 % (38.7-73.9); Platelet Count 163 T/CUMM (130-400); Red Blood Count 3.34 MC/CUMM (3.8-5.5); Red Cell Distribution Width 14.4 % (9.3-17.3); White Blood Count 7.6 T/CUMM (4-12)
[2020-03-23 04:04] LABS: Calcium 8.5 MG/DL (8.5-10.1)
[2020-03-23] MEDS: ALBUTEROL 2.5 MG/3 ML NEB RESP TX SCH ×2 (07:43→19:05)
[2020-03-23] MEDS: PRASUGREL 10 MG TABLET PO SCH (08:35)
[2020-03-23] MEDS: EZETIMIBE 10 MG TABLET PO SCH (08:35)
[2020-03-23] MEDS: AMIODARONE 200 MG TABLET PO SCH (08:36)
[2020-03-23] MEDS: ISOSORBIDE MONONITRATE 30 MG TABLET PO SCH (08:36)
[2020-03-23] MEDS: ASPIRIN CHEW 81 MG TABLET PO SCH (08:36)
[2020-03-23] MEDS: RANOLAZINE 500 MG TABLET PO SCH ×2 (08:36→20:57)
[2020-03-23] MEDS: PANTOPRAZOLE 40 MG TABLET PO SCH (08:36)
[2020-03-23] MEDS ORDERED: MAGNESIUM SULF RIDER 4 GM in PREMIX 1 EACH IV PRN (08:48)
[2020-03-23] MEDS ORDERED: MAGNESIUM SULF RIDER 2 GM in PREMIX 1 EACH IV PRN (08:48)
[2020-03-23] MEDS: carvediloL 3.125 MG TABLET PO SCH ×2 (09:20→20:57)
[2020-03-23] MEDS ORDERED: FUROSEMIDE 40 MG TABLET PO ONE (09:34)
[2020-03-23] MEDS: ROSUVASTATIN 10 MG TABLET PO SCH (20:57)
[2020-03-23] MEDS: ONDANSETRON 4 MG/2 ML VIAL IV PRN (23:13)
[2020-03-23] MEDS: MORPHINE 4 MG/1 ML VIAL IV PRN (23:19)
[2020-03-24 06:25] LABS: Basophils % 0.3 % (0.0-0.8); Eosinophils # 0.1 10*3/uL (0.0-0.87); Hematocrit 30.7 VOL% (35.7-47.0); Immature Granulocytes % 0.3 %; Immature Granulocytes Absolute 0.02 #; Lymphocytes # 1.8 10*3/uL (1.4-4.0); Lymphocytes % 29.9 % (21.3-54.2); Mean Corpuscular HGB Conc 32.6 GM/DL (32-36); Mean Corpuscular Volume 91.6 FL (87-102); Mean Platelet Volume 9.4 FL (9.6-12.0); Monocytes % 9.9 % (1.7-12.7); Neutrophils % 57.6 % (38.7-73.9); Platelet Count 183 T/CUMM (130-400); Red Blood Count 3.35 MC/CUMM (3.8-5.5); White Blood Count 5.9 T/CUMM (4-12)
[2020-03-24 07:07] LABS: Calcium 8.9 MG/DL (8.5-10.1); Osmolality,Calculated 277.7 MOS/KG (273-304)
[2020-03-24 07:13] LABS: Troponin I 0.766 NG/ML (0.00-0.045)
[2020-03-24 07:44] LABS: Eosinophils 3 % (0-10); Lymphocytes 32 % (20-55); Nucleated Red Blood Cells 1 (0-5); Platelet Estimate Normal; Segmented Neutrophils 59 % (50-85); Total Cells Counted 100
[2020-03-24] MEDS: ALBUTEROL 2.5 MG/3 ML NEB RESP TX SCH ×2 (07:45→19:11)
[2020-03-24 07:46] LABS: Anisocytosis 2+; Polychromasia Slight
[2020-03-24 07:47] LABS: Macrocytosis 1+
[2020-03-24] MEDS: RANOLAZINE 500 MG TABLET PO SCH ×2 (08:39→20:36)
[2020-03-24] MEDS: ISOSORBIDE MONONITRATE 30 MG TABLET PO SCH (08:39)
[2020-03-24] MEDS: carvediloL 3.125 MG TABLET PO SCH ×2 (08:40→20:36)
[2020-03-24] MEDS: PANTOPRAZOLE 40 MG TABLET PO SCH (08:40)
[2020-03-24] MEDS: AMIODARONE 200 MG TABLET PO SCH (08:40)
[2020-03-24] MEDS: PRASUGREL 10 MG TABLET PO SCH (08:40)
[2020-03-24] MEDS: ASPIRIN CHEW 81 MG TABLET PO SCH (08:40)
[2020-03-24] MEDS: EZETIMIBE 10 MG TABLET PO SCH (08:47)
[2020-03-24] MEDS ORDERED: SPIRONOLACTONE 25 MG TABLET PO SCH (09:30)
[2020-03-24] MEDS: SACUBITRIL/VALSARTAN 49-51 MG TABLET PO SCH ×2 (11:19→20:36)
[2020-03-24] MEDS: ROSUVASTATIN 10 MG TABLET PO SCH (20:35)
[2020-03-24] MEDS: ACETAMINOPHEN 325 MG TABLET PO PRN (20:36)
[2020-03-24] MEDS: ONDANSETRON 4 MG/2 ML VIAL IV PRN (23:57)
[2020-03-24] MEDS: MORPHINE 4 MG/1 ML VIAL IV PRN (23:57)
[2020-03-25 05:15] LABS: Basophils % 0.5 % (0.0-0.8); Eosinophils # 0.2 10*3/uL (0.0-0.87); Eosinophils % 3.4 % (0.00-10.9); Hemoglobin 10.1 GM/DL (12.0-16.0); Immature Granulocytes % 0.3 %; Immature Granulocytes Absolute 0.02 #; Lymphocytes # 2.2 10*3/uL (1.4-4.0); Lymphocytes % 35.9 % (21.3-54.2); Mean Corpuscular HGB Conc 32.6 GM/DL (32-36); Mean Corpuscular Volume 91.4 FL (87-102); Mean Platelet Volume 9.7 FL (9.6-12.0); Monocytes % 8.8 % (1.7-12.7); Neutrophils % 51.1 % (38.7-73.9); Platelet Count 182 T/CUMM (130-400); Red Blood Count 3.39 MC/CUMM (3.8-5.5); Red Cell Distribution Width 13.8 % (9.3-17.3); White Blood Count 6.2 T/CUMM (4-12)
[2020-03-25 05:54] LABS: Osmolality,Calculated 277.7 MOS/KG (273-304)
[2020-03-25] MEDS: ALBUTEROL 2.5 MG/3 ML NEB RESP TX SCH (08:19)
[2020-03-25] MEDS ORDERED: SPIRONOLACTONE 25 MG TABLET PO SCH (08:48)
[2020-03-25] MEDS ORDERED: POTASSIUM CHLORIDE 10 MEQ TABLET PO ONE (08:49)
[2020-03-25] MEDS ORDERED: BISOPROLOL 5 MG TABLET PO SCH (09:00)
[2020-03-25] MEDS ORDERED: POTASSIUM CHLORIDE 20 MEQ TABLET PO PRN (09:02)
[2020-03-25] MEDS: SACUBITRIL/VALSARTAN 49-51 MG TABLET PO SCH (09:25)
[2020-03-25] MEDS: PANTOPRAZOLE 40 MG TABLET PO SCH (09:26)
[2020-03-25] MEDS: RANOLAZINE 500 MG TABLET PO SCH (09:26)
[2020-03-25] MEDS: ASPIRIN CHEW 81 MG TABLET PO SCH (09:26)
[2020-03-25] MEDS: AMIODARONE 200 MG TABLET PO SCH (09:26)
[2020-03-25] MEDS: PRASUGREL 10 MG TABLET PO SCH (09:27)
[2020-03-25] MEDS: EZETIMIBE 10 MG TABLET PO SCH (09:27)
[2020-03-25] MEDS: ISOSORBIDE MONONITRATE 30 MG TABLET PO SCH (09:27)
[2020-03-25 11:34] VITALS: BP 124/60
== END 2020-03-25 13:20 | disposition home or self-care (01) | DRG 246 ==
LOC: N.EDINP 21:35 → N.ED 21:35 → SUATTDRO 03-21 02:21 → N.TELES 03-21 14:57 → N.ICU 03-21 16:59 → SUATTDRO 03-22 09:12 → N.TELEN 03-23 15:56
PROVIDERS: ADMIT Internal Medicine; ATTEND Emergency Medicine
PROC: CLCCHCL (ICD-10-PCS; 2020-03-21 14:45)

== ENCOUNTER 2020-07-30 11:52 | Inpatient (IN) ==
[2020-07-30 12:42] LABS: Alanine Aminotransferase 19 U/L (13-56); Albumin 3.7 G/DL (3.4-5.0); Alkaline Phosphatase 102 U/L (45-117); Aspartate Amino Transferase 24 U/L (0-37); Bilirubin,Total < 0.39 MG/DL (0.2-1.0); Blood Urea Nitrogen 18 MG/DL (7-18); Calcium 8.7 MG/DL (8.5-10.1); Carbon Dioxide 28 MMOL/L (21-32); Estimated Glom Filtration Rate 49 ML/MIN; Glucose 162 MG/DL (74-106); Osmolality,Calculated 284.4 MOS/KG (273-304); Potassium 3.4 MMOL/L (3.5-5.1); Sodium 140 MMOL/L (136-145); Total Protein 6.9 G/DL (5.0-7.5)
[2020-07-30 13:23] LABS: Basophils % 0.1 % (0.0-0.8); Eosinophils # 0.1 10*3/uL (0.0-0.87); Eosinophils % 0.9 % (0.00-10.9); Hematocrit 37.8 VOL% (35.7-47.0); Hemoglobin 11.3 GM/DL (12.0-16.0); Immature Granulocytes % 0.3 %; Immature Granulocytes Absolute 0.02 #; Lymphocytes # 1.8 10*3/uL (1.4-4.0); Lymphocytes % 26.7 % (21.3-54.2); Mean Corpuscular HGB Conc 29.9 GM/DL (32-36); Mean Corpuscular Volume 88.7 FL (87-102); Mean Platelet Volume 9.5 FL (9.6-12.0); Monocytes % 9.9 % (1.7-12.7); Neutrophils % 62.1 % (38.7-73.9); Platelet Count 188 T/CUMM (130-400); Red Blood Count 4.26 MC/CUMM (3.8-5.5); Red Cell Distribution Width 17.6 % (9.3-17.3); White Blood Count 6.8 T/CUMM (4-12)
[2020-07-30 13:36] LABS: INR 1.1; PT Patient Result 11.7 SECS (9.8-11.9)
[2020-07-30] MEDS ORDERED: ONDANSETRON 4 MG/2 ML VIAL IV PRN (14:57)
[2020-07-30] MEDS ORDERED: DEXTROSE 50% 25 GM/50 ML VIAL IV PRN (14:57)
[2020-07-30] MEDS ORDERED: GLUCAGON 1 MG VIAL IM PRN (14:57)
[2020-07-30] MEDS ORDERED: NITROGLYCERIN SL 0.4 MG TABLET SL PRN (15:26)
[2020-07-30] MEDS ORDERED: ALBUTEROL 2.5 MG/3 ML NEB RESP TX PRN (15:26)
[2020-07-30] MEDS ORDERED: DOCUSATE SODIUM 100 MG CAPSULE PO PRN (15:26)
[2020-07-30] MEDS: cilostazoL 50 MG TABLET PO SCH (21:03)
[2020-07-30] MEDS: ACETAMINOPHEN 325 MG TABLET PO PRN (21:04)
[2020-07-30] MEDS: SACUBITRIL/VALSARTAN 49-51 MG TABLET PO SCH (21:05)
[2020-07-30] MEDS: APIXABAN 2.5 MG TABLET PO SCH (21:05)
[2020-07-30] MEDS: COENZYME Q10 100 MG CAPSULE PO SCH (21:05)
[2020-07-30] MEDS: ROSUVASTATIN 20 MG TABLET PO SCH (21:06)
[2020-07-31 06:00] LABS: Basophils % 0.3 % (0.0-0.8); Eosinophils # 0.1 10*3/uL (0.0-0.87); Eosinophils % 1.4 % (0.00-10.9); Hematocrit 36.1 VOL% (35.7-47.0); Hemoglobin 10.9 GM/DL (12.0-16.0); Immature Granulocytes % 0.3 %; Immature Granulocytes Absolute 0.02 #; Lymphocytes # 2.4 10*3/uL (1.4-4.0); Lymphocytes % 40.3 % (21.3-54.2); Mean Corpuscular HGB Conc 30.2 GM/DL (32-36); Mean Platelet Volume 9.3 FL (9.6-12.0); Monocytes % 10.3 % (1.7-12.7); Neutrophils % 47.4 % (38.7-73.9); Platelet Count 195 T/CUMM (130-400); Red Cell Distribution Width 17.3 % (9.3-17.3); White Blood Count 5.9 T/CUMM (4-12)
[2020-07-31 06:23] LABS: Hypochromasia 1+; Microcytosis 1+; Platelet Estimate Adequate
[2020-07-31 06:30] LABS: Albumin 3.3 G/DL (3.4-5.0); Bilirubin,Total 0.4 MG/DL (0.2-1.0); Calcium 9.3 MG/DL (8.5-10.1); Osmolality,Calculated 275.7 MOS/KG (273-304); Potassium 3.2 MMOL/L (3.5-5.1); Total Protein 6.8 G/DL (5.0-7.5)
[2020-07-31] MEDS ORDERED: MAGNESIUM SULF RIDER 2 GM in PREMIX 1 EACH IV ONE (07:40)
[2020-07-31] MEDS ORDERED: POTASSIUM CHLORIDE 20 MEQ TABLET PO ONE (07:40)
[2020-07-31] MEDS: ASPIRIN CHEW 81 MG TABLET PO SCH (08:38)
[2020-07-31] MEDS: PRASUGREL 10 MG TABLET PO SCH (08:38)
[2020-07-31] MEDS: VENLAFAXINE XR 37.5 MG CAPSULE PO SCH (08:38)
[2020-07-31] MEDS: CALCIUM (CARBONATE)/VITAMIN D 600 MG-400 UNIT TABLET PO SCH (08:38)
[2020-07-31] MEDS: AMIODARONE 200 MG TABLET PO SCH (08:38)
[2020-07-31] MEDS: LEVOTHYROXINE 88 MCG TABLET PO SCH (08:38)
[2020-07-31] MEDS: cilostazoL 50 MG TABLET PO SCH ×2 (08:39→23:18)
[2020-07-31] MEDS: EZETIMIBE 10 MG TABLET PO SCH (08:39)
[2020-07-31] MEDS: BISOPROLOL 5 MG TABLET PO SCH (08:39)
[2020-07-31] MEDS: PANTOPRAZOLE 40 MG TABLET PO SCH (08:39)
[2020-07-31] MEDS: APIXABAN 2.5 MG TABLET PO SCH ×2 (08:39→23:23)
[2020-07-31] MEDS: SACUBITRIL/VALSARTAN 49-51 MG TABLET PO SCH ×2 (08:39→23:18)
[2020-07-31] MEDS: SPIRONOLACTONE 25 MG TABLET PO SCH (08:39)
[2020-07-31 08:40] LABS: Troponin I < 0.015 NG/ML (0.00-0.045)
[2020-07-31] MEDS: NITROGLYCERIN 2% OINT 1 INCH/GM PACK TOP SCH ×3 (08:43→18:05)
[2020-07-31] MEDS ORDERED: ISOSORBIDE MONONITRATE 30 MG TABLET PO SCH (09:00)
[2020-07-31 11:02] LABS: Troponin I < 0.015 NG/ML (0.00-0.045)
[2020-07-31 14:08] LABS: Troponin I < 0.015 NG/ML (0.00-0.045)
[2020-07-31] MEDS: ROSUVASTATIN 20 MG TABLET PO SCH (23:18)
[2020-07-31] MEDS: COENZYME Q10 100 MG CAPSULE PO SCH (23:18)
[2020-07-31] MEDS: ACETAMINOPHEN 325 MG TABLET PO PRN (23:19)
[2020-08-01] MEDS: NITROGLYCERIN 2% OINT 1 INCH/GM PACK TOP SCH ×4 (01:04→18:05)
[2020-08-01 05:52] LABS: Basophils % 0.3 % (0.0-0.8); Eosinophils # 0.1 10*3/uL (0.0-0.87); Eosinophils % 1.2 % (0.00-10.9); Hemoglobin 10.7 GM/DL (12.0-16.0); Immature Granulocytes % 0.3 %; Immature Granulocytes Absolute 0.02 #; Lymphocytes # 2.3 10*3/uL (1.4-4.0); Lymphocytes % 38.9 % (21.3-54.2); Mean Corpuscular HGB Conc 30.6 GM/DL (32-36); Mean Corpuscular Volume 88.6 FL (87-102); Mean Platelet Volume 9.6 FL (9.6-12.0); Monocytes % 10.9 % (1.7-12.7); Neutrophils % 48.4 % (38.7-73.9); Platelet Count 196 T/CUMM (130-400); Red Blood Count 3.95 MC/CUMM (3.8-5.5); Red Cell Distribution Width 17.1 % (9.3-17.3); White Blood Count 5.9 T/CUMM (4-12)
[2020-08-01 06:04] LABS: Calcium 9.1 MG/DL (8.5-10.1); Osmolality,Calculated 280.5 MOS/KG (273-304); Potassium 3.5 MMOL/L (3.5-5.1)
[2020-08-01 06:16] LABS: Hypochromasia 1+; Microcytosis 1+
[2020-08-01 06:17] LABS: Ovalocytes Slight; Platelet Estimate Adequate; Polychromasia Slight
[2020-08-01] MEDS ORDERED: SODIUM CHLORIDE 0.45% 1,000 ML IV SCH (09:00)
[2020-08-01] MEDS: SPIRONOLACTONE 25 MG TABLET PO SCH (11:27)
[2020-08-01] MEDS: AMIODARONE 200 MG TABLET PO SCH (11:27)
[2020-08-01] MEDS: CALCIUM (CARBONATE)/VITAMIN D 600 MG-400 UNIT TABLET PO SCH (11:27)
[2020-08-01] MEDS: ASPIRIN CHEW 81 MG TABLET PO SCH (11:27)
[2020-08-01] MEDS: cilostazoL 50 MG TABLET PO SCH ×2 (11:27→21:54)
[2020-08-01] MEDS: SACUBITRIL/VALSARTAN 49-51 MG TABLET PO SCH (11:27)
[2020-08-01] MEDS: VENLAFAXINE XR 37.5 MG CAPSULE PO SCH (11:27)
[2020-08-01] MEDS: APIXABAN 2.5 MG TABLET PO SCH (11:27)
[2020-08-01] MEDS: PRASUGREL 10 MG TABLET PO SCH (11:27)
[2020-08-01] MEDS: EZETIMIBE 10 MG TABLET PO SCH (11:28)
[2020-08-01] MEDS: PANTOPRAZOLE 40 MG TABLET PO SCH (11:28)
[2020-08-01] MEDS: LEVOTHYROXINE 88 MCG TABLET PO SCH (11:28)
[2020-08-01] MEDS: BISOPROLOL 5 MG TABLET PO SCH (11:28)
[2020-08-01] MEDS ORDERED: LOPERAMIDE 1 MG/7.5 ML 30 ML BOTTLE PO ONE (11:30)
[2020-08-01 12:58] LABS: Troponin I < 0.015 NG/ML (0.00-0.045)
[2020-08-01] MEDS ORDERED: LOPERAMIDE 1 MG/7.5 ML 30 ML BOTTLE PO PRN (13:30)
[2020-08-01] MEDS ORDERED: diphenhydrAMINE CAP 25 MG CAPSULE PO ONE (15:00)
[2020-08-01] MEDS ORDERED: DIAZEPAM 5 MG TABLET PO ONE (15:00)
[2020-08-01 16:18] VITALS: BP 138/68
[2020-08-01] MEDS ORDERED: LIDOCAINE 1% 20 ML VIAL ONE (16:44)
[2020-08-01] MEDS ORDERED: NITROGLYCERIN DRIP 0 MG/0 ML BOTTLE IV ONE (16:58)
[2020-08-01] MEDS ORDERED: MIDAZOLAM 2 MG/2 ML VIAL ONE (16:58)
[2020-08-01] MEDS ORDERED: HYDROmorphone 2 MG/1 ML VIAL ONE (16:58)
[2020-08-01] MEDS ORDERED: VERAPAMIL 5 MG/2 ML VIAL ONE (16:59)
[2020-08-01] MEDS ORDERED: ONDANSETRON 4 MG/2 ML VIAL ONE (17:15)
[2020-08-01] MEDS ORDERED: PROMETHAZINE 25 MG/1 ML VIAL ONE (17:41)
[2020-08-01] MEDS ORDERED: methylPREDNISolone SOD SUC 125 MG/2 ML VIAL ONE (17:45)
[2020-08-01] MEDS ORDERED: diphenhydrAMINE 50 MG/1 ML VIAL ONE (17:46)
[2020-08-01] MEDS ORDERED: FUROSEMIDE 40 MG/4 ML VIAL ONE (17:52)
[2020-08-01] MEDS ORDERED: ZALEPLON 5 MG CAPSULE PO PRN (17:57)
[2020-08-01] MEDS ORDERED: PHENYLEPHRINE 50 MG/5 ML VIAL ONE (17:59)
[2020-08-01] MEDS ORDERED: ROCURONIUM 100 MG/10 ML VIAL IV ONE (18:16)
[2020-08-01] MEDS ORDERED: ETOMIDATE 20 MG/10 ML VIAL IV ONE (18:16)
[2020-08-01 18:38] LABS: ABG Base Excess -5.3 MMOL/L (-2.5-2.5); ABG HCO3 19.9 MMOL/L (20-26); ABG Oxygen Saturation 91.1 % (95-100); ABG PCO2 38.6 MM HG (35-48); ABG PH 7.327 (7.35-7.45); ABG PO2 69.1 MM HG (80-95); ABG TCO2 18.1 MMOL/L (23-27)
[2020-08-01] MEDS ORDERED: FUROSEMIDE 40 MG/4 ML VIAL IV ONE (18:41)
[2020-08-01 19:48] LABS: Troponin I 0.026 NG/ML (0.00-0.045)
[2020-08-01] MEDS ORDERED: NITROGLYCERIN DRIP 50 MG/250 ML BOTTLE IV PRN (19:55)
[2020-08-01] MEDS: ROSUVASTATIN 20 MG TABLET PO SCH (21:54)
[2020-08-01] MEDS: COENZYME Q10 100 MG CAPSULE PO SCH (21:55)
[2020-08-02] MEDS: NITROGLYCERIN 2% OINT 1 INCH/GM PACK TOP SCH ×3 (00:03→12:55)
[2020-08-02 04:25] LABS: ABG Base Excess -3.4 MMOL/L (-2.5-2.5); ABG HCO3 21.6 MMOL/L (20-26); ABG PCO2 33.5 MM HG (35-48); ABG PH 7.398 (7.35-7.45); ABG TCO2 18.3 MMOL/L (23-27)
[2020-08-02 04:32] LABS: Basophils % 0.1 % (0.0-0.8); Hematocrit 38.5 VOL% (35.7-47.0); Hemoglobin 11.9 GM/DL (12.0-16.0); Immature Granulocytes % 0.5 %; Immature Granulocytes Absolute 0.04 #; Lymphocytes % 11.9 % (21.3-54.2); Mean Corpuscular HGB Conc 30.9 GM/DL (32-36); Mean Corpuscular Volume 85.9 FL (87-102); Mean Platelet Volume 9.4 FL (9.6-12.0); Monocytes % 1.2 % (1.7-12.7); Neutrophils % 86.3 % (38.7-73.9); Platelet Count 235 T/CUMM (130-400); Red Blood Count 4.48 MC/CUMM (3.8-5.5); Red Cell Distribution Width 16.9 % (9.3-17.3); White Blood Count 8.2 T/CUMM (4-12)
[2020-08-02 04:51] LABS: CKMB % 6.7 %
[2020-08-02 04:52] LABS: Calcium 8.9 MG/DL (8.5-10.1); Osmolality,Calculated 279.8 MOS/KG (273-304); Potassium 4.1 MMOL/L (3.5-5.1)
[2020-08-02 04:56] LABS: Troponin I 2.69 NG/ML (0.00-0.045)
[2020-08-02] MEDS ORDERED: ENOXAPARIN 100 MG/ML SYRINGE SUBCUT ONE (06:24)
[2020-08-02] MEDS ORDERED: PANTOPRAZOLE 40 MG VIAL IV SCH (09:00)
[2020-08-02] MEDS: EZETIMIBE 10 MG TABLET PO SCH (09:06)
[2020-08-02] MEDS: BISOPROLOL 5 MG TABLET PO SCH (09:07)
[2020-08-02] MEDS: ASPIRIN CHEW 81 MG TABLET PO SCH (09:07)
[2020-08-02] MEDS: AMIODARONE 200 MG TABLET PO SCH (09:07)
[2020-08-02] MEDS: LEVOTHYROXINE 88 MCG TABLET PO SCH (09:08)
[2020-08-02] MEDS: cilostazoL 50 MG TABLET PO SCH (09:08)
[2020-08-02] MEDS: CALCIUM (CARBONATE)/VITAMIN D 600 MG-400 UNIT TABLET PO SCH (09:08)
[2020-08-02] MEDS: VENLAFAXINE XR 37.5 MG CAPSULE PO SCH (09:09)
[2020-08-02] MEDS: PRASUGREL 10 MG TABLET PO SCH (09:09)
[2020-08-02] MEDS: SPIRONOLACTONE 25 MG TABLET PO SCH (09:24)
[2020-08-02 09:53] LABS: CKMB % 6.3 %
[2020-08-02 09:54] LABS: Troponin I 2.31 NG/ML (0.00-0.045)
== END 2020-08-02 16:20 | disposition hospice, home (50) | DRG 286 ==
LOC: N.ED 11:52 → N.EDINP 11:52 → SUATTDRO 13:55 → N.TELEN 14:45 → N.CC 08-01 18:19
PROVIDERS: ADMIT Hospitalist; ATTEND Family Medicine